=== PATIENT | female | born 1960 | race Caucasian/White ===

== ENCOUNTER 2019-04-09 12:50 | Inpatient (IN) ==
--- OUTSIDE RECORDS SUMMARY | 2019-04-09 12:55 | External Medical Summary | Continuity of Care Document ---
:1960 Author Name Robert Chino Address Unavailable Unavailable , Care Team Providers Name Role Phone Garfield OLSON Unavailable [email or web address] Saturnino Chino Unavailable [email or web address] Aric Goyal PA-C Unavailable [email or web address] PCP, UNKNOWN Unavailable Unavailable Unavailable Unavailable Unavailable Problems Abdominal pain, left lower quadrant (789.04) (R10.32) Abdominal bloating (787.3) (R14.0) Change in mole (216.9) (D22.9) Insomnia (780.52) (G47.00) Hyperlipidemia (272.4) (E78.5) Difficulty reading due to visual problem (368.9) (H53.9) Eustachian tube dysfunction (381.81) (H69.80) 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 Lulú Matamoros Start: 21-Oct-2014 Quantity: 15 Refills: 0 Simvastatin 10 MG Oral Tablet; TAKE 1 TABLET DAILY. Lulú Matamoros Start: 20-May-2016 Quantity: 90 Refills: 1 One Daily For Women Oral Tablet; TAKE 1 TABLET DAILY. Start: 25-Jun-2012 Refills: 0 Vitamin D3 50 MCG (2000 UT) Oral Capsule; TAKE 1 CAPSULE Christi ly Start: 25-Jun-2012 Refills: 0 Calcium 500 MG TABS; Take 1 tablet twice daily Start: 25-Jun-2012 Refills: 0 Fluticasone Propionate 50 MCG/ACT Nasal Suspension; USE 2 SPRAYS IN EACH NOSTRIL TWICE DAILY. Merrill, PA-C Ana Start: 11-Nov-2011 Quantity: 1 16 GM Bottle Refills: 1 ProAir HFA 108 (90 Base) MCG/ACT Inhalat ion Aerosol Solution; INHALE 1 TO 2 PUFFS EVERY 4 TO 6 HOURS NEEDED. WHITNEY Goyal Start: 08-Mar-2011 Quantity: 1 Refills: 5 Procedures History of Oral Surgery Tooth Extraction Status: Completed Immunizations Tdap (Adacel) On: 14-Nov-2011 10:26 Lot #: [id number], SANOFI PASTEUR Family History Mother Family history of Breast Cancer (V16.3) Status: Active aunt Family history of Breast Cancer (V16.3) Status: Active Grandmother Family history of Colon Cancer (V16.0) Status: Active Grandmother Family history of Colon Cancer (V16.0) Status: Active Brother Family history of Hypertension (V17.49) Status: Active Family history of Pure Hypercholesterolemia Status: Active Father Family history of Pure Hypercholesterolemia Status: Active Family history of chronic obstructive pulmonary disease (V17 .6) Status: Active (Z82.5) Social History - Smoking Status Former smoker Plan of Treatment Planned Observations Planned Goals not documented Results No Known Results Results not documented
[2019-04-09] MEDS ORDERED: SODIUM CHLORIDE 0.9% 1000ML 1,000 ML IV SCH (14:15)
[2019-04-09 14:17] LABS: Hematocrit (blood only) 30.4 % (37-47); Hemoglobin 10.5 g/dL (12.0-16.0); Mean Corpuscular Hemoglobin 32.5 pg (25-34); Mean Corpuscular Hgb Conc 34.5 g/dL (32-36); Mean Corpuscular Volume 94.1 fL (80-100); Mean Platelet Volume 9.6 fL (7.4-10.4); Platelet Count 221 K/uL (130-400); RDW Coefficient of Variation 17.7 % (11.5-14.5); RDW Standard Deviation 61.4 fL (36.4-46.3); Red Blood Count 3.23 M/uL (4.2-5.4); White Blood Count 23.98 K/uL (4.8-10.8)
[2019-04-09 14:25] LABS: Albumin Level 2.9 gm/dl (3.4-5.0); Aspartate Aminotransferase 18 U/L (15-37); BUN Creatinine Ratio 27.2 (10-20); Blood Urea Nitrogen 19 mg/dl (7-18); Calcium 8.7 mg/dl (8.5-10.1); Carbon Dioxide 24 mmol/L (21-32); Chloride 101 mmol/L (98-107); Creatinine Clr Calc Pharmacy 78.3 ml/min; Est GFR (African American) 109.1; Est GFR (Non-African American) 94.2; Glucose 128 mg/dl (70-99); Lipase 102 U/L (73-393); Potassium 3.3 mmol/L (3.5-5.1); Sodium 133 mmol/L (136-145)
[2019-04-09 14:31] LABS: Alanine Aminotransferase 42 U/L (12-78); Albumin Globulin Ratio 0.7 (0.9-2); Alkaline Phosphatase 157 U/L (45-117); Bilirubin,Total 1.4 mg/dl (0.2-1); Globulin 4.2 gm/dl (2.5-4.0); Total Protein 7.1 gm/dl (6.4-8.2); Troponin I < 0.015 ng/ml (0-0.045)
[2019-04-09 14:40] LABS: ALC (manual) 0.22 K/uL (1.2-3.4); ANC (manual) 23.76 K/uL (1.4-6.5); Lymphocytes # (manual) 0.22 K/uL (1.2-3.4); Lymphocytes % (manual) 0.9 %; Neutrophils # (manual) 23.76 K/uL (1.4-6.5); Neutrophils % (manual) 99.1 %
--- NOTE | 2019-04-09 14:54 | XRay Report ---
XR chest 1V portable HISTORY: 58 years-old Female sepsis acute sepsis COMPARISON: CT abdomen and pelvis 10/11/2018 TECHNIQUE: Portable AP view of the chest FINDINGS: Cardiomediastinal and hilar silhouettes are within normal limits. Right IJ Ndpmpp-o-Ituj catheter dis guan[place]ito tip terminates in the expected location of the mid SVC. Linear bibasilar opacities suggest atelec tasis. Mild right hemidiaphragmatic elevation with small right pleural effusion, new from prior. Dege nerative changes of the shoulders and spine. IMPRESSION: 1. Mild right hemidiaphragm elevation with linear bibasilar opacities suggestive of atelectasis. 2. Small right pleural effusion, new from comparison. The above report was generated using voice recognition software. It may contain grammatical, syntax o r spelling errors. Electronically signed by: Humberto Odom M.D. 04/09/2019 2:53 PM
[2019-04-09] MEDS ORDERED: IOVERSOL 100ml IV PRN (17:14)
--- NOTE | 2019-04-09 17:28 | CT Scan Report ---
CT abd pelvis oral and IV con CLINICAL HISTORY: Abdominal pain. Right lower quadrant drain. Hospital intra-abdominal abscess. 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 CT DOSE: 328.85 mGy.cm FINDINGS: Lower chest: There is elevation of the right hemidiaphragm. There is a small right pleural effusion w ith right basilar atelectasis. There are pleurodiaphragmatic calcifications. Liver: There is a 33 mm central hypodense lesion approaching water attenuation likely representing a cyst. There is a second probable cyst within the right lobe inferiorly Gallbladder: Surgically absent Spleen: Normal in size and attenuation. Pancreas: Unremarkable. Adrenal glands: Unremarkable. Kidneys: There is symmetric renal cortical enhancement. The kidneys are normal in size without hydron ephrosis. Bowel: Postsurgical changes are evident. There is no evidence of a significant bowel obstruction. The re is no evidence of acute diverticulitis. There is a thick-walled distal ileal loop at the level of the right lower quadrant abscess, likely resulting secondary inflammation. Peritoneum: There is loculated right subhepatic fluid. There is no free intraperitoneal air. There is a right lower quadrant surgical drain. The drain is within a complex 3 cm right lower quadrant fluid collection with marked surrounding infiltration and thickening of the surrounding soft tissues. The patient appears be status post omentectomy. Vasculature: The abdominal aorta is normal in course and caliber. Adenopathy: None. Pelvic viscera: The patient appears be status post a hysterectomy. There is a stool-filled rectum wit h mild rectal wall thickening. Skeletal structures: No destructive osseous lesions are seen. IMPRESSION: 1. Extensive interval surgery with evidence of interval hysterectomy and oophorectomy and omentectomy . There is also evidence for interval bowel surgery with several bowel anastomoses. 2. Small right pleural effusion, with right basilar atelectatic change 3. Loculated subhepatic fluid 4. Extensive right lower quadrant inflammatory process. There is a right lower quadrant pigtail willian ter draining a 3 cm fluid collection. There is marked infiltration and thickening of the surrounding soft tissues. There is secondary edema within the distal ileal loop. 5. No current evidence of a high-grade bowel obstruction. Electronically signed by: Jacob Dempsey M.D. 04/09/2019 5:26 PM
[2019-04-09] MEDS ORDERED: SODIUM CHLORIDE 0.9% 1000ML 1,000 ML IV STA (19:46)
[2019-04-09] MEDS ORDERED: CASPOFUNGIN 70 MG in SODIUM CHLORIDE 0.9% 250 ML IV ONE (20:00)
[2019-04-09] MEDS ORDERED: ERTAPENEM SODIUM 1,000 MG in SODIUM CHLORIDE 0.9% 50 ML IV ONE (20:00)
[2019-04-09] MEDS ORDERED: SIMVASTATIN 10 MG TAB PO ONE (22:29)
[2019-04-09] MEDS ORDERED: ONDANSETRON INJ 2 MG/ML 2 ML VIAL IV PRN (22:29)
[2019-04-09] MEDS ORDERED: NITROGLYCERIN SL 0.4 MG/TAB TAB SL PRN (22:29)
[2019-04-09] MEDS ORDERED: FAMOTIDINE 20 MG TAB PO ONE (22:29)
[2019-04-09] MEDS ORDERED: POTASSIUM CHLORIDE 20 MEQ TABCR PO STA (22:29)
[2019-04-09] MEDS: ACETAMINOPHEN 325 MG TAB PO PRN (23:09)
[2019-04-09] MEDS: SODIUM CHLORIDE 0.9% 1000ML 1,000 ML IV SCH (23:13)
[2019-04-09] MEDS ORDERED: ERTAPENEM CONSULT ACTIVE PRN (23:41)
[2019-04-09] MEDS ORDERED: [UNRECOGNIZED DRUG - REMARK] PRN (23:48)
--- NOTE | 2019-04-09 23:51 | Emergency Department Note ---
Entered by Kelly Byrnes acting as a scribe for ED Provider Note CHIEF COMPLAINT: RLQ abscess HISTORY OF PRESENT ILLNESS: The patient is a 58 year old female who presents to the Emergency Room with complaints of an abscess in her right lower quadrant that worsened yesterday. She states that she's had difficulty with abscesses in her abdomen for the past few months. The patient notes that her abscess has been draining more fluid, so she was recommended to present to the ER by her visiting nurse. She complains of RLQ abdominal pain and nausea. The patient complains of diarrhea. Pt denies LOC, headache, fevers, chills, diaphoresis, visual changes, neck pain, chest pain, breathing difficulties, nausea, vomiting, back pain, melena, hematochezia, urinary symptoms, numbness, weakness, lymphadenopathy, rash, or other complaint s. The patient notes that Ibuprofen provides some relief. She notes that she is currently undergoing chemotherapy, stating that her last treatment was 4 days ago. The patient states that she's been taking an antibiotic and micafungin. REVIEW OF SYSTEMS: See HPI for pertinent positives and negatives. A total of ten systems were reviewed and were otherwise negative. PMHx/PSHx: Ovarian cyst, cancer SOCIAL HISTORY: Patient lives at home. PHYSICAL EXAM: GENERAL: Awake, alert, well-appearing, in no distress HENT: Normocephalic, atraumatic. Oropharynx unremarkable. EYES: PERRL. Normal conjunctiva. Sclera non-icteric. NECK: Inspection normal. Non-tender. Supple. No nuchal rigidity. FROM. No masses. RESPIRATORY: Clear to auscultation. No wheezes. No rales. Normal respiratory effort. CARDIAC: Tachycardic rate. Normal rhythm. No murmurs. No rubs. Extremities warm and well perfused. Pulses equal. No JVD. GI: Soft, non-distended. Mild RLQ tenderness. Draining in the RLQ. No rebound or guarding. No masses. RECTAL: Deferred. MUSCULOSKELETAL: Atraumatic. Chest examination reveals no tenderness. The back is symmetrical on inspection without obvious abnormality. There is no CVA tenderness to palpation. No joint edema. LOWER EXTREMITIES: Calves are equal size bilaterally and non-tender. No edema. No discoloration. NEURO: Normal sensorium. No sensory or motor deficits noted. SKIN: No rash or jaundice noted. EMERGENCY DEPARTMENT COURSE: 1414: Past medical records reviewed. The patient was evaluated in room B10, and a complete history and physical examination were performed. 155: I updated the patient, and she was finishing her CT prep. She is scheduled to go to CT at 16:30. 1800: I updated the patient. 1818: I spoke with Dr. Dougherty at [facility] about the patient's case. We reviewed the patient's data and his recommendation was for the patient to be monitored for any signs of sepsis such as hypotension or development of fever. If that would be the case then he recommended meropenem and vancomycin to be initiated. He recommended no change at this time to antibiotic or empiric treatment. He did ask for the drainage around the tube to be cultured and this was performed. 1946: I spoke with Dr. Holley, [facility] hospitalist, about the patients case. He will further evaluate the patient. 1950: I updated the patient on the plan, and she was in agreement. MEDICAL DECISION MAKING: Prior records/ancillary studies reviewed. Triage Nursing notes reviewed and agree them. The patient's history was concerning for abdominal pain and known intra- abdominal abscess. Differential diagnosis: Etiologies such as abdominal abscess, necrotizing fasciitis, pneumonia, influenza,meningitis, urinary tract infection, sepsis, bacteremia, viral syndrome, as well as others were entertained. Physical examination: As above. Mild right lower quadrant tenderness but no peritoneal findings. Initial vital signs revealed tachycardia and borderline hypotension. The patient does note that she typically runs lower on her blood pressure, frequently around 100 systolic per ER treatment provided: Normal saline hydration On reassessment the patient felt better. Vital signs improved. Diagnostics interpreted by me: ECG: No acute ischemia. The labs revealed a market leukocytosis on CBC. The patient did receive Neulasta with her chemotherapy this week. The patient's blood cultures are pending. Her lactate was within normal limits albeit at the upper limits. Imaging studies: Chest imaging negative. CT scan of the abdomen pelvis reveals a 3 cm right lower quadrant abscess that is drained by the pigtail catheter. There is inflammatory change around this. After discussion with ID at [facility] the abscess has decreased in size slightly. There measurement was 3.6 cm. I did discuss the patient's ertapenem and micafungin. Micafungin is not available here on formulary although caspofungin is not pharmacy felt the dosing would be equivalent for coverage. A dose of caspofungin was substituted with ED pharmacist in agreement. Consultation: A consultation was placed with [facility] infectious disease as noted above. Due to the recommendations for monitoring a consultation was placed with [facility] hospitalist. The case was discussed and diagnostics were reviewed. The patient was evaluated in the ER for further treatment. IMPRESSION: Hypotension, Tachycardia, Intra-abdominal abscess, History of ovarian cancer, History of recent chemotherapy PLAN: Evaluation by hospitalist The scribe's documentation has been prepared under my direction and personally reviewed by me in its entirety. I confirm that the note above accurately reflects all work, treatment, procedures, and medical decision making performed by me. Impression & Plan Hypotension, Tachycardia, Intra-abdominal abscess, History of ovarian cancer, History of recent chemotherapy Past Med/Surg History Medical History Left ovarian cyst (Acute) Cancer Social History Preferred Language: Mongolian Communication Ability: Effective Beliefs That Will Affect Care: None marital status: Current Living Situation: Alone current occupational status: employed Other Information That Helps Us Care for You: No Feels Safe at Home: Yes Safety Concerns: Feels Safe At This Time Smoking Status: Former smoker Do You Dip or Chew Tobacco: No ; Second Hand Exposure: No ; Tobacco Cessation Education Requested by Patient: No Hx Alcohol Use: Yes Alcohol type: wine and hard liquor Hx Substance Use: No Results & Data Vital Signs Vital Signs - 24 hr 04/09/19 12:58 04/09/19 15:14 04/09/19 17:34 Temperature 36.6 C Temperature Source Oral Sepsis Recent Fever Within 48 Hours No Sepsis Action Taken by Nursing No Action Required Pulse Rate 133 H Pulse Rate [Apical] 95 H 96 H Respiratory Rate 20 18 18 Blood Pressure 90/63 L Blood Pressure [Right Arm] 117/82 122/64 Blood Pressure Mean 72 Blood Pressure Mean [Right Arm] 93 83 Pulse Oximetry 96 100 Oxygen Delivery Method Room Air 04/09/19 19:21 Temperature Temperature Source Sepsis Recent Fever Within 48 Hours Sepsis Action Taken by Nursing Pulse Rate Pulse Rate [Apical] Respiratory Rate 18 Blood Pressure Blood Pressure [Right Arm] 131/81 Blood Pressure Mean Blood Pressure Mean [Right Arm] 97 Pulse Oximetry 100 Oxygen Delivery Method Room Air Home Medications Current Medication List: was personally reviewed by me Laboratory Data Attestation: I reviewed the patient's lab results. Result diagrams: 04/09/19 13:53 04/09/19 13:53 Lab Results 04/09/19 04/09/19 04/09/19 Range/Units 13:53 13:53 13:53 WBC 23.98 H (4.8-10.8) K/uL RBC 3.23 L (4.2-5.4) M/uL Hgb 10.5 L (12.0-16.0) g/dL Hct 30.4 L (37-47) % MCV 94.1 (80-100) fL MCH 32.5 (25-34) pg MCHC 34.5 (32-36) g/dL RDW Std Deviation 61.4 H (36.4-46.3) fL RDW Coeff of Eddie 17.7 H (11.5-14.5) % Plt Count 221 (130-400) K/uL MPV 9.6 (7.4-10.4) fL Neutrophils % (Manual) 99.1 % Lymphocytes % (Manual) 0.9 % Neutrophils # (Manual) 23.76 H (1.4-6.5) K/uL Total Absolute Neuts 23.76 H (1.4-6.5) K/uL Lymphocytes # (Manual) 0.22 L (1.2-3.4) K/uL Total Abs Lymphocytes 0.22 L (1.2-3.4) K/uL Hyposegmented Neuts 1+ Sodium 133 L (136-145) mmol/L Potassium 3.3 L (3.5-5.1) mmol/L Chloride 101 (98-107) mmol/L Carbon Dioxide 24 (21-32) mmol/L Anion Gap 8.0 (3-11) BUN 19 H (7-18) mg/dl Creatinine 0.70 (0.6-1.2) mg/dl Est Cr Clr Drug Dosing 78.3 ml/min Est GFR ( Amer) 109.1 Est GFR (Non-Af Amer) 94.2 BUN/Creatinine Ratio 27.2 H (10-20) Glucose 128 H (70-99) mg/dl POC Lactic Acid William (0.90-1.70) mmol/L Lactate 2.0 (0.4-2.0) mmol/L Calcium 8.7 (8.5-10.1) mg/dl Total Bilirubin 1.4 H (0.2-1) mg/dl AST 18 (15-37) U/L ALT 42 (12-78) U/L Alkaline Phosphatase 157 H (45-117) U/L Troponin I < 0.015 (0-0.045) ng/ml Total Protein 7.1 (6.4-8.2) gm/dl Albumin 2.9 L (3.4-5.0) gm/dl Globulin 4.2 H (2.5-4.0) gm/dl Albumin/Globulin Ratio 0.7 L (0.9-2) Lipase 102 (73-393) U/L 04/09/19 Range/Units 14:38 WBC (4.8-10.8) K/uL RBC (4.2-5.4) M/uL Hgb (12.0-16.0) g/dL Hct (37-47) % MCV (80-100) fL MCH (25-34) pg MCHC (32-36) g/dL RDW Std Deviation (36.4-46.3) fL RDW Coeff of Eddie (11.5-14.5) % Plt Count (130-400) K/uL MPV (7.4-10.4) fL Neutrophils % (Manual) % Lymphocytes % (Manual) % Neutrophils # (Manual) (1.4-6.5) K/uL Total Absolute Neuts (1.4-6.5) K/uL Lymphocytes # (Manual) (1.2-3.4) K/uL Total Abs Lymphocytes (1.2-3.4) K/uL Hyposegmented Neuts Sodium (136-145) mmol/L Potassium (3.5-5.1) mmol/L Chloride (98-107) mmol/L Carbon Dioxide (21-32) mmol/L Anion Gap (3-11) BUN (7-18) mg/dl Creatinine (0.6-1.2) mg/dl Est Cr Clr Drug Dosing ml/min Est GFR ( Amer) Est GFR (Non-Af Amer) BUN/Creatinine Ratio (10-20) Glucose (70-99) mg/dl POC Lactic Acid William 1.15 (0.90-1.70) mmol/L Lactate (0.4-2.0) mmol/L Calcium (8.5-10.1) mg/dl Total Bilirubin (0.2-1) mg/dl AST (15-37) U/L ALT (12-78) U/L Alkaline Phosphatase (45-117) U/L Troponin I (0-0.045) ng/ml Total Protein (6.4-8.2) gm/dl Albumin (3.4-5.0) gm/dl Globulin (2.5-4.0) gm/dl Albumin/Globulin Ratio (0.9-2) Lipase (73-393) U/L Administered Medications Acetaminophen (Tylenol) 650 mg PO Q4H PRN PRN Reason: Pain or Fever Stop: 05/09/19 22:28 Last Admin: 04/09/19 23:09 Dose: 650 mg Documented by: [id number] Sodium Chloride (Nss 1000ml) 1,000 mls @ 100 mls/hr IV .Q10H BHARAT Stop: 05/09/19 22:28 Last Admin: 04/09/19 23:13 Dose: 100 mls/hr Documented by: [id number] Discontinued Medications Famotidine (Pepcid) 20 mg PO NOW ONE Stop: 04/09/19 22:30 Last Admin: 04/09/19 23:13 Dose: 20 mg Documented by: [id number] Sodium Chloride (Nss 1000ml) 1,000 mls @ 999 mls/hr IV .Q1H1M BHARAT Stop: 04/09/19 15:15 Last Infusion: 04/09/19 17:14 Dose: 0 mls/hr Documented by: [id number] Admin: 04/09/19 14:32 Dose: 999 mls/hr Documented by: [id number] Sodium Chloride (Nss 1000ml) 1,000 mls @ 125 mls/hr IV .Q8H STA Stop: 04/10/19 03:45 Last Admin: 04/09/19 20:52 Dose: 125 mls/hr Documented by: [id number] Ertapenem 1,000 mg/ Sodium (Chloride) 60 mls @ 100 mls/hr IV NOW ONE Stop: 04/09/19 20:35 Last Admin: 04/09/19 20:18 Dose: 100 mls/hr Documented by: [id number] Caspofungin 70 mg/ Sodium (Chloride) 260 mls @ 260 mls/hr IV NOW ONE Stop: 04/09/19 20:59 Last Admin: 04/09/19 20:52 Dose: 260 mls/hr Documented by: [id number] Ioversol (Optiray 320 100ml) 94 ml IV ONCE PRN PRN Reason: Interaction Checking Stop: 04/13/19 17:13 Last Admin: 04/09/19 17:14 Dose: 94 ml Documented by: [id number] Potassium Chloride (Klor-Con M20) 20 meq PO NOW STA Stop: 04/09/19 22:30 Last Admin: 04/09/19 23:11 Dose: 20 meq Documented by: [id number] Simvastatin (Zocor) 10 mg PO NOW ONE Stop: 04/09/19 22:30 Last Admin: 04/09/19 23:10 Dose: 10 mg Documented by: [id number] Imaging Data Radiologist's Impression: Radiology results as stated below per my review and the radiologist's interpretation: XR chest 1V portable HISTORY: 58 years-old Female sepsis acute sepsis COMPARISON: CT abdomen and pelvis 10/11/2018 TECHNIQUE: Portable AP view of the chest FINDINGS: Cardiomediastinal and hilar silhouettes are within normal limits. Right IJ Fekqql-j-Ztwl catheter distal tip terminates in the expected location of the mid SVC. Linear bibasilar opacities suggest atelectasis. Mild right hemidiaphragmatic elevation with small right pleural effusion, new from prior. Degenerative changes of the shoulders and spine. IMPRESSION: 1. Mild right hemidiaphragm elevation with linear bibasilar opacities suggestive of atelectasis. 2. Small right pleural effusion, new from comparison. The above report was generated using voice recognition software. It may contain grammatical, syntax or spelling errors. Electronically signed by: Humberto Odom M.D. 04/09/2019 2:53 PM XR chest 1V portable HISTORY: 58 years-old Female sepsis acute sepsis COMPARISON: CT abdomen and pelvis 10/11/2018 TECHNIQUE: Portable AP view of the chest FINDINGS: Cardiomediastinal and hilar silhouettes are within normal limits. Right IJ Owtmku-i-Dvsj catheter distal tip terminates in the expected location of the mid SVC. Linear bibasilar opacities suggest atelectasis. Mild right hemidiaphragmatic elevation with small right pleural effusion, new from prior. Degenerative changes of the shoulders and spine. IMPRESSION: 1. Mild right hemidiaphragm elevation with linear bibasilar opacities suggestive of atelectasis. 2. Small right pleural effusion, new from comparison. The above report was generated using voice recognition software. It may contain grammatical, syntax or spelling errors. Electronically signed by: Humberto Odom M.D. 04/09/2019 2:53 PM ECG Data Attestation: I personally reviewed and interpreted this ECG as follows: Indication: abdominal pain Rate (beats per minute): 100 Rhythm: normal sinus Findings: + other (normal QRS, nonspecific ST changes); no PAC, no PVC, no ST depression and no ST elevation Blood Pressure Blood Pressure Findings: Elevated blood pressure Blood Pressure Disposition: further management by hospitalist Discharge Plan Visit Data *Final* Discharge Date/Time: 04/09/19 22:06 Chief Complaint: Infection, Wound Stated Complaint: PUS FROM STOMACH DRAINAGE SITE ED Provider: Naresh Montgomery Discharge Problem: Hypotension, Tachycardia, Intra-abdominal abscess, History of ovarian cancer, History of recent chemotherapy Patient Disposition: Admitted As Inpatient Discharge Instructions Interventions: ED Discharge Assessment Last Done: 04/09/19 22:06 Discharge Problem: Hypotension Qualifiers: Hypotension type: unspecified hypotension type Qualified Code(s): I95.9 - Hypotension, unspecified The scribe's documentation has been prepared under my direction and personally reviewed by me in its entirety. I confirm that the note above accurately reflects all work, treatment, procedures, and medical decision making performed by me.
[2019-04-10] MEDS ORDERED: HEPARIN 100 UNIT/ML 5ML FLUSH FLUSH PRN (00:22)
--- NOTE | 2019-04-10 01:10 | History and Physical Report ---
DATE OF ADMISSION: 04/09/2019 CHIEF COMPLAINT: Drainage around her abdominal pigtail catheter. 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 She is on micafungin and Invanz IV antibiotic every day as per patient until she completes her chemotherapy, currently she is getting chemo locally with paclitaxel and carboplatin , chemotherapy starting on 01/07/2019, last dose was 04/05/2019. She also received Neulasta. She lives alone. She walks without any support. Appetite is okay. She lost over 25 pounds since her surgery, she has home health nurse comes once a week. She is having some friends who helped with the food. Today her home nurse came, she found that some drainage around catheter and also drainage in catheter, not looking good, so she advised to come to the ER and she also called her [facility] ID and they also advised to come to the ER. In the ER when she came in, she was tachycardic and hypotensive with IV fluids hemodynamics improved. Her lactate was normal at 2 and white count was 23, but she received Neulasta. She was afebrile. She denies any fever, chills at home. She has some mild soreness at the catheter site, but that is not unusual. ER physician talked to the ID stone engraver at [facility], they recommended to observe in the hospital. If she spiked temperature or develops any infection, to broaden the antibiotics to IV vancomycin and meropenem. Currently hemodynamically stable. Denies any headache. She says her blood pressure usually runs on the lower side and gets dizzy when she stands up. No blurred vision. No earaches. Has some runny nose over the last 2 weeks. No sore throat, no cough, no fever, no chills, no dysphagia, no chest pain, no shortness of breath, no nausea, no vomiting. She has diarrhea from her chemo, but no bloody stools or black stools. No hematuria or burning micturition, no swelling in the legs, no rash. ALLERGIES: No known drug allergies. PAST MEDICAL HISTORY: As mentioned above. PAST SURGICAL HISTORY: Breast lesion, core biopsy, colonoscopy, tunneled catheter at [facility], has total abdominal hysterectomy with bilateral salpingo-oophorectomy, debulking diaphragmatic stripping, omentectomy, transverse colectomy and ileocolic resection in October 2018. On 03/02/2019, she has IR placement of pigtail catheter for abdominal abscess. MEDICATIONS: She is on IV Invanz 1 gram daily and micafungin 100 mg IV daily, multivitamin daily, potassium chloride 20 mEq p.o. b.i.d., famotidine 20 mg b.i.d., Lexapro 10 mg p.o. daily, simvastatin 10 mg p.o. at bedtime. FAMILY HISTORY: Significant for: Father had lung cancer, hypertension. Aunt has breast cancer. Cousin has breast cancer. Mother has breast cancer. Maternal grandfather has colon cancer. Paternal grandmother has colon cancer. Maternal grandmother has ALS. SOCIAL HISTORY: , lives alone. Former smoker, smoked 1 pack a day for 9 years. Alcohol, wine 1 or 2 daily. No drug use. REVIEW OF SYMPTOMS: As per HPI. Rest of review of systems is negative. PHYSICAL EXAMINATION: GENERAL: The patient is thin and frail, not in acute distress. VITAL SIGNS: Temperature 36.6, pulse 96, blood pressure 131/81, respiratory rate 18, oxygen 100% room air. HEENT: No pallor, no icterus. Pupils equal, round, reactive to light. NECK: No JVD, no neck masses, no carotid bruits. CARDIOVASCULAR: S1, S2 heard, regular rate and rhythm, no murmur, no gallop. RESPIRATORY SYSTEM: Normal AP diameter. No accessory muscle use. No wheezing, no crackles. ABDOMEN: Soft, some mild tenderness in the pigtail catheter site. No rebound tenderness, no guarding, no distention. CENTRAL NERVOUS SYSTEM: Alert and awake and oriented, obeys commands. Moves extremities. EXTREMITIES: No edema, no erythema. LABORATORY DATA: WBC 23.9, hemoglobin 10.5, hematocrit 30.4, platelets 221. Sodium 133, potassium 3.3, chloride 101, bicarbonate 24, BUN 19, creatinine 0.7, serum glucose 128, point of care lactic acid 1.1, lactate 2, calcium 8.7, total bilirubin 1.4, AST 8, ALT 42, alkaline phosphatase is 157. Troponin I less than 0.015. Lipase 102. Chest x-ray, mild right hemidiaphragm elevation with linear bibasilar opacity suggestive of atelectasis, small right pleural effusion. CT abdomen and pelvis shows extensive interval surgery with evidence of interval hysterectomy and oophorectomy, and omentectomy. There is also evidence for interval bowel surgery, several bowel anastomosis, small right pleural effusion with right basilar atelectatic change, loculated subhepatic fluid, extensive right lower quadrant inflammatory process. There is right lower quadrant pigtail catheter, draining 3 cm fluid collection. There is marked infiltration and thickening of the surrounding soft tissues. There is secondary edema within the distal ileal loop. No current evidence of high-grade bowel obstruction. EKG: Normal sinus rhythm with rate of 100, nonspecific T-wave abnormality seen. ASSESSMENT AND PLAN: This is a 58-year-old female with past medical history significant for high-grade serous carcinoma of the ovary and fallopian tube, status post debulking surgery with liver metastatic disease and extensive intra-abdominal metastatic disease and also intraabdominal abscess, status post percutaneous drainage done on 03/02/2019 at [facility], currently on IV micafungin, IV Invanz daily. Currently, also on chemo locally, chemo started on 01/07/2019, last chemo 04/05/2019, comes because of question of some drainage around the pigtail catheter. 1. Abdominal abscess, status post pigtail catheter, some drainage around pigtail catheter, was hypotensive and tachycardic on presentation, improved with fluids. ER talked with the ID doctor on-call at [facility], talked to ([place]), Dr. Harden is her usual ID doctor. The on-call doctor advised to observe locally in the hospital and if she spiked temperature, to add vancomycin and change Invanz to meropenem. Currently, the patient is hemodynamically stable. We will continue IV fluids, normal saline 100 mL per hour and monitor in the med/surg tele. Her elevated white count could be from Neulasta given a few days ago. Blood cultures and surface wound testing done in ER, we will follow the results and also we will follow the urine cultures. 2. Metastatic high-grade serous carcinoma of the ovary and fallopian tube, status post debulking surgery at [facility] in October 2018 with extensive liver metastatic disease status post perc drainage for abdominal abscess on 03/02/2019. Has appointment at [facility] in next Friday with her surgeon. Advised also follow with her ID. Locally getting chemo. 3. Hypokalemia, replace, says ran out of home prescription of potassium chloride. 4. Gastroesophageal reflux disease. PPI. 5. Depression. Lexapro. 6. Hyperlipidemia, statin. 7. Deep vein thrombosis prophylaxis, sequential compression devices. DISPOSITION: Admit to med/surg tele. Level 1 full code. Addendum: Morning labs hb dropped from 10.5 to 6.6. No obvious signs of bleeding. Will get stool hemeoccult. Blood consent obtained. Dilutional? Consider repeat ct abd/pelvis. Will transfuse 2 units of prbc and monitor. MTDD
[2019-04-10 06:43] LABS: Hemoglobin 6.5 g/dL (12.0-16.0); Mean Corpuscular Hemoglobin 32.7 pg (25-34); Mean Corpuscular Hgb Conc 34.2 g/dL (32-36); Mean Corpuscular Volume 95.5 fL (80-100); Mean Platelet Volume 9.2 fL (7.4-10.4); Platelet Count 214 K/uL (130-400); RDW Coefficient of Variation 17.8 % (11.5-14.5); RDW Standard Deviation 61.5 fL (36.4-46.3); Red Blood Count 1.99 M/uL (4.2-5.4); White Blood Count 16.44 K/uL (4.8-10.8)
[2019-04-10 06:45] LABS: BUN Creatinine Ratio 28.8 (10-20); Creatinine Clr Calc Pharmacy 119.2 ml/min; Est GFR (African American) 124.4; Est GFR (Non-African American) 107.4; Magnesium 1.4 mg/dl (1.8-2.4); Potassium 3.4 mmol/L (3.5-5.1)
[2019-04-10 06:48] LABS: Basophils # (auto) 0.03 K/uL (0-0.2); Basophils % (auto) 0.2 %; Eosinophils % (auto) 0.6 %; Immature Granulocytes # (auto) 0.46 K/uL (0.00-0.02); Immature Granulocytes % (auto) 2.8 %; Lymphocytes # (auto) 1.66 K/uL (1.2-3.4); Lymphocytes % (auto) 10.1 %; Monocytes # (auto) 0.32 K/uL (0.11-0.59); Monocytes % (auto) 1.9 %; Neutrophils # (auto) 13.87 K/uL (1.4-6.5); Neutrophils % (auto) 84.4 %; Toxic Granulation 1+
[2019-04-10] MEDS ORDERED: POTASSIUM CHLORIDE 20 MEQ TABCR PO STA (07:21)
[2019-04-10 07:44] LABS: Appearance Urine Clear (Clear); Bilirubin Urine Negative (Negative); Blood Urine Negative (Negative); Color Urine Yellow; Glucose Urine UA Negative (Negative); Ketones Urine Negative (Negative); Leukocyte Esterase Urine Negative (Negative); Nitrite Urine Negative (Negative); Protein Urine Negative (Negative); Specific Gravity Urine <= 1.005 (1.000-1.030); Urobilinogen Urine Negative (Negative); pH Urine 6.5 (4.5-7.5)
[2019-04-10 08:15] LABS: Hematocrit (blood only) 19.4 % (37-47); Hemoglobin 6.6 g/dL (12.0-16.0)
[2019-04-10] MEDS ORDERED: SODIUM CHLORIDE 0.9% 250 ML IV PRN (08:35)
[2019-04-10] MEDS: MAGNESIUM SULFATE / D5W 1 GM/100 ML BAG IV SCH ×2 (08:39→09:35)
[2019-04-10] MEDS: SODIUM CHLORIDE 0.9% 1000ML 1,000 ML IV SCH (08:40)
[2019-04-10] MEDS: LACTOBACILLUS ACIDOPHILUS (FLORANEX) TAB PO SCH ×3 (08:41→17:48)
[2019-04-10] MEDS ORDERED: ESCITALOPRAM OXALATE 10 MG TAB PO SCH (09:00)
[2019-04-10] MEDS ORDERED: MULTIVITAMIN TAB PO SCH (09:00)
[2019-04-10] MEDS ORDERED: ERTAPENEM 285 MG/ML 1GM VIAL **IM USE IM SCH (09:00)
[2019-04-10] MEDS ORDERED: MICAFUNGIN 100 MG IV SCH (09:00)
[2019-04-10] MEDS ORDERED: POTASSIUM CHLORIDE 10 MEQ TABCR PO SCH (09:00)
[2019-04-10] MEDS ORDERED: FAMOTIDINE 20 MG TAB PO SCH (09:00)
--- NOTE | 2019-04-10 09:18 | Hospitalist Progress Note ---
Date of Service April 10, 2019 Assessment & Plan (1) Intra-abdominal abscess: (2) Anemia: (3) Hypotension: (4) Tachycardia: (5) History of ovarian cancer: (6) History of recent chemotherapy: D/W Dr Obregon, give 1 unit, Check LDH, Iron Studies, Haptoglobin, and Retic Count, Heme Check stool. Continue Abx, Change to Meropenem and Vanco if declines, CT A&P today ROS-No Headache, No Visual Changes, No Nausea, No Vomiting, No Fever, No Chills, No Neck Pain or Stiffness, No Chest Pain, No Palpitations, No SOB, No PICKERING, No Cough, No Sputum, No Wheezing, No Abdominal Pain, No Diarrhea, No Hematemesis, No Hemoptysis, No Unexpected Weight Loss, No Flank pain, No Melena, No Hematochezia, No Frequency, No Urgency, No Burning, No Hematuria, No Rashes, No Diaphoresis. Appetite is Normal Physical Exam Gen-AAO x 3, NAD, Afebrile, Pale Head-NCAT, EOMI, PERRLA, Anicteric Sclera, No Posterior Pharyngeal Erythema Neck-Supple, No JVD, No Thyromegaly, No Masses, No LAD, No Bruits Lungs-Clear to Auscultation Bilaterally, No Rales, No Rhonchi, No Wheezing, No Crepitus Chest-No S4, +S1, +S2, No S3, No Murmurs, No Rubs, No Gallops, No Ectopy Abdomen-Soft, Bowel Sounds Present, Non Tender, Non Distended, No Hepatomegaly, No Splenomegaly, No Palpable Masses, No Rebound, No Rigidity, No Guarding Musculoskeletal-Full Range of Motion Bilaterally, No CVAT Extremities-No Cyanosis, No Clubbing, No Edema Nuero-Cranial Nerves II-XII grossly intact, Motor WNL, DTRs WNL, Strength WNL, Non Focal Psych-Normal Mood Labs checked Results & Data Vital Signs (Past 12 Hours) Vital Signs Temp Pulse Pulse Resp BP Pulse Ox 04/10/19 06:58 37 C 86 18 100/65 94 04/10/19 03:57 36.7 C 84 16 104/70 95 04/10/19 00:15 85 04/09/19 22:35 37.6 C H 93 H 100/62 100 04/09/19 22:29 37.5 C 93 H 100/62 100 (1) Hypotension Hypotension type: unspecified hypotension type Qualified Code(s): I95.9 - Hypotension, unspecified
[2019-04-10 09:42] LABS: Reticulocyte % 0.7 % (0.5-2.0); Reticulocytes # 0.02 10^6/uL (0.02-0.10)
[2019-04-10] MEDS ORDERED: IOVERSOL 100ml IV PRN (09:48)
[2019-04-10] MEDS ORDERED: FUROSEMIDE 20 MG in SYRINGE 0 ML IV SCH (10:00)
[2019-04-10 10:02] LABS: Ferritin 734.2 ng/ml (8-388)
--- NOTE | 2019-04-10 10:12 | CT Scan Report ---
CT abd pelvis IV con only CT DOSE: 339.35 mGy.cm HISTORY: Abd Abscess, Drop in Hb TECHNIQUE: Multiaxial CT images of the abdomen and pelvis were performed following the use of intrave nous contrast. A dose lowering technique was utilized adhering to the principles of ALARA. COMPARISON STUDY: 04/09/2019 FINDINGS: Small right pleural effusion considered unchanged. Hepatic cysts unchanged. Spleen and panc reas are unremarkable. Kidneys negative for hydronephrosis. Stable postoperative changes of the mid and lower abdominal region as previously described. Moderate increase in small bowel distention. Unchanged drainage catheter in the right lower quadrant within a small collection. This is similar. Bladder is midline. No significant free fluid within the pelvic cul-de-sac. IMPRESSION: 1. Small right pleural effusion and right basilar atelectasis unchanged. 2. Interval development of partial distal small bowel obstructive change of uncertain etiology. 3. Drainage catheter right lower quadrant within a small unchanged 3 cm fluid collection. The above report was generated using voice recognition software. It may contain grammatical, syntax or spelling errors. Electronically signed by: Andrea Portillo M.D. 04/10/2019 10:11 AM
[2019-04-10] MEDS: ACETAMINOPHEN 325 MG TAB PO PRN (10:17)
[2019-04-10] MEDS ORDERED: MAGNESIUM OXIDE 400 MG TAB PO SCH (14:00)
[2019-04-10] MEDS ORDERED: CASPOFUNGIN 50 MG in SODIUM CHLORIDE 0.9% 250 ML IV SCH ×2 (17:00→21:00)
[2019-04-10] MEDS ORDERED: POTASSIUM CHLORIDE 20 MEQ TABCR PO SCH (17:00)
--- NOTE | 2019-04-10 17:25 | Discharge Summary ---
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 She is on micafungin and Invanz IV antibiotic every day as per patient until she completes her chemotherapy, currently she is getting chemo locally with paclitaxel and carboplatin , chemotherapy starting on 01/07/2019, last dose was 04/05/2019. She also received Neulasta. She lives alone. She walks without any support. Appetite is okay. She lost over 25 pounds since her surgery, she has home health nurse comes once a week. She is having some friends who helped with the food. Today her home nurse came, she found that some drainage around catheter and also drainage in catheter, not looking good, so she advised to come to the ER and she also called her [facility] ID and they also advised to come to the ER. In the ER when she came in, she was tachycardic and hypotensive with IV fluids hemodynamics improved. Her lactate was normal at 2 and white count was 23, but she received Neulasta. She was afebrile. She denies any fever, chills at home. She has some mild soreness at the catheter site, but that is not unusual. ER physician talked to the ID clinical operations specialist at [facility], they recommended to observe in the hospital. If she spiked temperature or develops any infection, to broaden the antibiotics to IV vancomycin and meropenem. Currently hemodynamically stable. Denies any headache. She says her blood pressure usually runs on the lower side and gets dizzy when she stands up. No blurred vision. No earaches. Has some runny nose over the last 2 weeks. No sore throat, no cough, no fever, no chills, no dysphagia, no chest pain, no shortness of breath, no nausea, no vomiting. She has diarrhea from her chemo, but no bloody stools or black stools. No hematuria or burning micturition, no swelling in the legs, no rash. Admission Exam Per Admitting Provider GENERAL: The patient is thin and frail, not in acute distress. VITAL SIGNS: Temperature 36.6, pulse 96, blood pressure 131/81, respiratory rate 18, oxygen 100% room air. HEENT: No pallor, no icterus. Pupils equal, round, reactive to light. NECK: No JVD, no neck masses, no carotid bruits. CARDIOVASCULAR: S1, S2 heard, regular rate and rhythm, no murmur, no gallop. RESPIRATORY SYSTEM: Normal AP diameter. No accessory muscle use. No wheezing, no crackles. ABDOMEN: Soft, some mild tenderness in the pigtail catheter site. No rebound tenderness, no guarding, no distention. CENTRAL NERVOUS SYSTEM: Alert and awake and oriented, obeys commands. Moves extremities. EXTREMITIES: No edema, no erythema. Principal Diagnosis (1) Suspected Intra-abdominal abscess: Ruled Out (2) Anemia: (3) Hypotension: (4) Tachycardia: (5) History of ovarian cancer: (6) History of recent chemotherapy: Discharge Exam Physical Exam Gen-AAO x 3, NAD, Afebrile, Pale, Pleasant Head-NCAT, EOMI, PERRLA, Anicteric Sclera, No Posterior Pharyngeal Erythema Neck-Supple, No JVD, No Thyromegaly, No Masses, No LAD, No Bruits Lungs-Clear to Auscultation Bilaterally, No Rales, No Rhonchi, No Wheezing, No Crepitus Chest-No S4, +S1, +S2, No S3, No Murmurs, No Rubs, No Gallops, No Ectopy Abdomen-Soft, Bowel Sounds Present, Non Tender, Non Distended, No Hepatomegaly, No Splenomegaly, No Palpable Masses, No Rebound, No Rigidity, No Guarding, +Pigtail Cathter wo drainage, Pus, Erythema, or tenderness Musculoskeletal-Full Range of Motion Bilaterally, No CVAT Extremities-No Cyanosis, No Clubbing, No Edema Nuero-Cranial Nerves II-XII grossly intact, Motor WNL, DTRs WNL, Strength WNL, Non Focal Psych-Normal Mood Discharge Data Allergies Allergy/AdvReac Type Severity Reaction Status Date / Time No Known Allergies Allergy Unverified 04/09/19 13:35 Consultations 04/09/19 19:47 ED Decision to Admit Stat 04/09/19 22:29 Consult Case Management - Discharge Planning Routine 04/10/19 10:38 Burn CD for patient Stat Ordered Studies 04/09/19 14:15 CT abd pelvis oral and IV con Stat 04/10/19 09:20 CT abd pelvis IV con only Stat Current Diagnoses Anemia, unspecified (04/09/19) Hypotension, unspecified (04/09/19) Peritoneal abscess (04/09/19) Tachycardia, unspecified (04/09/19) Personal history of malignant neoplasm of ovary (04/09/19) Allergies No Known Allergies Allergy (Unverified 04/09/19 13:35) Height/Weight/Isolation Height 5 ft 6 in Weight 59.6 kg Chemistry 04/09/19 04/10/19 13:53 05:07 Sodium 133 L 139 Potassium 3.3 L 3.4 L Chloride 101 107 Carbon Dioxide 24 27 Anion Gap 8.0 5.0 BUN 19 H 14 Creatinine 0.70 0.47 L Glucose 128 H 80 Urinalysis 04/10/19 05:30 Urine Color Yellow Urine Appearance Clear Urine pH 6.5 Ur Specific [place] <= 1.005 Urine Protein Negative Urine Glucose (UA) Negative Urine Ketones Negative Urine Blood Negative Urine Nitrite Negative Urine Bilirubin Negative Microbiology 04/09/19 13:53 Blood Aerobic Blood Culture - Preliminary No growth in Aerobic bottle after 24 hours. 04/09/19 13:53 Blood Anaerobic Blood Culture - Preliminary No growth in Anaerobic bottle after 24 hours. 04/09/19 14:28 Blood Aerobic Blood Culture - Preliminary No growth in Aerobic bottle after 24 hours. 04/09/19 14:28 Blood Anaerobic Blood Culture - Preliminary No growth in Anaerobic bottle after 24 hours. 04/09/19 14:28 Abdomen Gram Stain - Final 04/09/19 14:28 Abdomen Wound Culture - Preliminary Coag negative Staphylococcus Hospital Course (1) Intra-abdominal abscess: (2) Anemia: (3) Hypotension: (4) Tachycardia: (5) History of ovarian cancer: (6) History of recent chemotherapy: D/W Dr Obregon, we gave 1 unit of PRBCs, Antibiotics and antifungal infused, LDH w as normal, Iron normal, Ferritin High, TIBC normal, Haptoglobin pending, Retic Count low normal, CT A&P today showed no gross changes. DC home tonight and f/u c Dr Obregon Friday, She has Abx and antifungal supplies at home Physical Exam Gen-AAO x 3, NAD, Afebrile, Pale Head-NCAT, EOMI, PERRLA, Anicteric Sclera, No Posterior Pharyngeal Erythema Neck-Supple, No JVD, No Thyromegaly, No Masses, No LAD, No Bruits Lungs-Clear to Auscultation Bilaterally, No Rales, No Rhonchi, No Wheezing, No Crepitus Chest-No S4, +S1, +S2, No S3, No Murmurs, No Rubs, No Gallops, No Ectopy Abdomen-Soft, Bowel Sounds Present, Non Tender, Non Distended, No Hepatomegaly, No Splenomegaly, No Palpable Masses, No Rebound, No Rigidity, No Guarding Musculoskeletal-Full Range of Motion Bilaterally, No CVAT Extremities-No Cyanosis, No Clubbing, No Edema Nuero-Cranial Nerves II-XII grossly intact, Motor WNL, DTRs WNL, Strength WNL, Non Focal Psych-Normal Mood Labs checked Total Time Total Time Spent Total Time Spent (In Minutes): 60 mins Total Time Includes: Examination of the Patient, Discharge Planning, Medication Reconciliation and Communication With Other Providers Discharge Plan Discharge Items Patient Disposition: Home - Self-Care Reason For Visit: ABDOMINAL INFECTION Discharge Diagnosis: (1) Suspected Intra-abdominal abscess: Ruled Out (2) Anemia: (3) Hypotension: (4) Tachycardia: (5) History of ovarian cancer: (6) History of recent chemotherapy: Condition on Discharge: Good Activity: Resume your previous activity Lifting: Gradually increase as tolerated Bathing: No limitations Sexual Activity: When tolerated Exercise/Sports: None Driving/Machine Use: No limitations Weightbearing: Full weightbearing Non-emergency contact: Primary Care Provider and Oncologist Call non-emergency contact if: you have any medication questions and your symptoms worsen Follow-up/Referrals: Kody Wall MD [Primary Care Provider] - Maynor Obregon MD [Surgeon] - 04/12/19 9:00 am (For follow up blood work, Dr Obregon requests you see him early Friday in the office) Diet: Regular Addtl Attending Provider Instructions: Check Labs per Dr Obregon Friday in Onc Office Pending Studies at Discharge: No Stand-Alone Forms: My [facility] i'mma Medications and DC Order Prescriptions: Continued multivitamin Tablet 1 tab PO DAILY RF: 0 simvastatin 10 mg tablet 10 mg PO HS RF: 0 potassium chloride 10 mEq capsule, extended release 20 meq PO BID RF: 0 famotidine 20 mg tablet 20 mg PO BID RF: 0 ertapenem [Invanz] 1 gram Recon Soln 1 g IV DAILY RF: 0 escitalopram oxalate 10 mg tablet 10 mg PO DAILY RF: 0 Mycamine 100 mg Recon Soln 100 mg IV DAILY RF: 0 Discharge Orders: Discharge Order (Routine); Ordered 04/10/19 Ordered By: Leonardo Lorenzana Admission Data Admit Date/Time: 04/09/19 21:28 Attending Provider: Leonardo Lorenzana Admit Provider: Sridhar Holley Primary Care Provider: Kody Wall Other Providers: Sridhar Holley ; [place]
[2019-04-10] MEDS ORDERED: ERTAPENEM SODIUM 1,000 MG in SODIUM CHLORIDE 0.9% 50 ML IV SCH ×2 (17:30→20:00)
== END 2019-04-10 19:50 | disposition home health service (06) | DRG 315 ==
LOC: ED 12:50 → 2W 21:28

== ENCOUNTER 2019-05-28 02:50 | Inpatient (IN) ==
[2019-05-28] MEDS ORDERED: ONDANSETRON INJ 2 MG/ML 2 ML VIAL IV STA (03:03)
[2019-05-28] MEDS ORDERED: SODIUM CHLORIDE 0.9% 500 ML IV SCH (03:15)
[2019-05-28 03:55] LABS: Basophils # (auto) 0.03 K/uL (0-0.2); Basophils % (auto) 0.2 %; Immature Granulocytes # (auto) 0.04 K/uL (0.00-0.02); Immature Granulocytes % (auto) 0.3 %; Lymphocytes # (auto) 1.09 K/uL (1.2-3.4); Lymphocytes % (auto) 8.5 %; Mean Corpuscular Hemoglobin 33.1 pg (25-34); Mean Corpuscular Hgb Conc 34.5 g/dL (32-36); Mean Platelet Volume 8.3 fL (7.4-10.4); Monocytes # (auto) 0.54 K/uL (0.11-0.59); Monocytes % (auto) 4.2 %; Neutrophils # (auto) 11.14 K/uL (1.4-6.5); Neutrophils % (auto) 86.8 %; Platelet Count 272 K/uL (130-400); RDW Coefficient of Variation 15.3 % (11.5-14.5); RDW Standard Deviation 53.3 fL (36.4-46.3); Red Blood Count 3.02 M/uL (4.2-5.4); White Blood Count 12.84 K/uL (4.8-10.8)
[2019-05-28 04:16] LABS: Albumin Level 3.1 gm/dl (3.4-5.0); BUN Creatinine Ratio 35.7 (10-20); Calcium 9.3 mg/dl (8.5-10.1); Creatinine Clr Calc Pharmacy 91.8 ml/min; Est GFR (African American) 114.2; Est GFR (Non-African American) 98.5; Potassium 3.6 mmol/L (3.5-5.1)
[2019-05-28 04:19] LABS: Albumin Globulin Ratio 0.7 (0.9-2); Bilirubin,Total 0.9 mg/dl (0.2-1); Globulin 4.2 gm/dl (2.5-4.0); Total Protein 7.3 gm/dl (6.4-8.2)
[2019-05-28] MEDS ORDERED: IOVERSOL 100ml IV PRN (04:42)
--- NOTE | 2019-05-28 06:27 | Surgery Consultation ---
Date of Consultation May 28, 2019 Assessment & Plan (1) Partial small bowel obstruction: Patient does likely have some element of partial obstruction although minimally dilated small bowel and no significant worsening of inflammation in the right lower quadrant. I discussed served of treatment with IV hydration and bowel rest. I also told her if she continues to vomit she would need an NG tube. She is a very reasonable person and if at all possible, would very much like to go home later today-I think we could try liquids obviously if she fails proceed with medical management if she does not progress and appears to require surgery- she would be transferred to [facility]. I told her she may end up going home having more trouble and have to be readmitted-she does understand all of this would very much like to go home later today. We will continue to follow her Also has a note there is a very good medical summary on 04/09/2019 with physicians names from [facility] who have helped care for her History of Present Illness History of Present Illness Patient presents to the emergency room with nausea and vomiting although she says the vomiting is from being self-induced Likely from mild bloating He had similar findings to 4 weeks ago however no significant vomiting at that time History of metastatic ovarian cancer, [id number] debulking procedure in October 2018 at [facility] She has been followed at [facility] with recent right lower quadrant infection abscess with percutaneous drain placement He has completed her IV antibiotics, she apparently has a small fistula is to be repaired in June Her CAT scan shows mildly dilated small bowel which is an ileus versus partial small bowel obstruction-she also has inflammation in the right lower quadrant with a drain in place Patient has evidence of metastatic disease to the liver with multiple liver metastases Allergies Allergy/AdvReac Type Severity Reaction Status Date / Time No Known Allergies Allergy Unverified 05/28/19 03:27 Home Medications Home Medications Medication Instructions Recorded Confirmed Type multivitamin 1 tab PO DAILY 10/11/18 05/28/19 History simvastatin 10 mg PO HS 10/11/18 05/28/19 History escitalopram oxalate 10 mg PO DAILY 04/09/19 05/28/19 History famotidine 20 mg PO BID 04/09/19 05/28/19 History calcium carbonate-vitamin D3 1 cap PO DAILY 05/28/19 05/28/19 History [Calcium 600 + D(3)] Patient History Medical History (Updated 05/28/19 @ 06:01 by Yon Lawson) Cancer History of ovarian cancer (Acute) Hypotension (Acute) Left ovarian cyst (Acute) Tachycardia (Acute) Social History Preferred Language: Polish Communication Ability: Effective Beliefs That Will Affect Care: None marital status: Current Living Situation: Alone current occupational status: employed Feels Safe at Home: Yes Smoking Status: Former smoker Second Hand Exposure: No ; Hx Alcohol Use: Yes Alcohol type: wine and hard liquor Hx Substance Use: No Review of Systems Review of Systems: All systems reviewed & are unremarkable except as noted in HPI & below Physical Exam Physical Exam: Patient is awake and alert no distress her abdomen is flat and soft she does have some bowel sounds Is a percutaneous drain in place in the right lower quadrant with no overt infection in the soft tissue Constitutional: no acute distress Respiratory: normal respiratory effort; no respiratory distress Cardiovascular: Rate/Rhythm: regular rate and regular rhythm Skin: no rashes, warm and dry Neurologic: awake Psychiatric: Orientation: alert Results & Data Vital Signs (Past 12 Hours) Vital Signs Temp Pulse Pulse Resp BP BP Pulse Ox 05/28/19 06:06 70 18 111/76 96 05/28/19 03:52 82 18 123/73 94 05/28/19 02:56 36.5 C 82 18 121/58 L 97 I did review her CAT scan PG Care Time/CCT Total # of Minutes Spent Total Time Spent with Patient: Total time spent is greater than 50% in coordination of care (as documented) at patient's floor/unit and/or counseling patient:
--- NOTE | 2019-05-28 07:00 | History & Physical Report ---
Date of Service May 28, 2019 Assessment & Plan (1) Abdominal pain: Partial SBO versus ileus on initial CT read hx metastatic ovarian cancer status post surgery (10/2018) sp chemotherapy, currently in remission as per recent outpatient specialist note intra-abdominal abscess status post percutaneous drainage (02/2019) status post antibiotic Rx history enterocutaneous fistula status post drain placement chronic anemia, hemoglobin better than baseline likely secondary to hemoconcentration mood disorder at baseline Hyperglycemia rule out DM GMF Surgery consult RE partial SBO on CT initial read (ER provider already in touch with Dr. Tucker who recommends clear liquid diet for now.) May need NGT decompression if with emesis. Bowel regimen check hemoglobin A1c DVT Prophylaxis. Lovenox subcu Full code Patient requesting to be discharged today if possible pending surgical follow-up evaluation. History of Present Illness Chief Complaint: Abdominal pain Primary Care Provider: Kody Wall MD History obtained from patient and records. Medical history significant for metastatic ovarian cancer status post surgery (10/2018) sp chemotherapy, intra-abdominal abscess status post percutaneous drainage (02/2019) status post antibiotic Rx, history enterocutaneous fistula status post drain placement, chronic anemia baseline hemoglobin of 9, mood disorder, past tobacco abuse. Recent confinement March 2019 for abdominal pain. Intra-abdominal abscess ruled out. Recent outpatient follow-up with [facility] specialists 3 weeks ago. Patient told that she was in remission given scan results from last month (no definitive disease as per outpatient records.) Minimal fistula drainage at time of encounter. ID recommended completion of IV antibiotics in 1 week. Fistulogram to be done around June 2019 to determine future management for enterocutaneous fistula. Yesterday, patient noted achy mid abdominal pain with nausea and bloating symptoms. Some constipation as per patient. Patient tried to induce vomiting hoping to relieve symptoms. Some chills, no fever, no chest pain, no S OB. Patient brought to the ER by EMS. Medical History as above Surgical History : Breast lesion excision, vascular procedure, ex lap, omentectomy, partial colon resection, peritoneal ectomy, radical hysterectomy with BSO, appendectomy, ileocecectomy with [id number] anastomosis, resection of cul-de-sac pelvic tumor/ debulking surgery, cholecystectomy. 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 Allergies Allergy/AdvReac Type Severity Reaction Status Date / Time No Known Allergies Allergy Unverified 05/28/19 03:27 Home Medications Home Medications Medication Instructions Recorded Confirmed Type multivitamin 1 tab PO DAILY 10/11/18 05/28/19 History simvastatin 10 mg PO HS 10/11/18 05/28/19 History escitalopram oxalate 10 mg PO DAILY 04/09/19 05/28/19 History famotidine 20 mg PO BID 04/09/19 05/28/19 History Calcium 600 + D(3) 1 cap PO DAILY 05/28/19 05/28/19 History Past Med/Surg History Social History Preferred Language: Congolese Communication Ability: Effective Hospitality Team Member Required: No Beliefs That Will Affect Care: None marital status: Current Living Situation: Alone current occupational status: employed Other Information That Helps Us Care for You: No Feels Safe at Home: Yes Safety Concerns: Feels Safe At This Time Smoking Status: Former smoker Second Hand Exposure: No ; Hx Alcohol Use: Yes Alcohol type: wine and hard liquor Hx Substance Use: No Review of Systems Review of Systems: As per HPI, all 10 systems reviewed, all other ROS negative Physical Exam Physical Exam: GENERAL: Comfortable, slightly anxious, pleasant, no respiratory distress SKIN: Pallor, warm HEENT: Alopecia, pale palpebral conjunctivae, no ptosis, dry buccal mucosa NECK : Supple, no tenderness CHEST : CTA, no tenderness HEART : RRR, no obvious murmurs ABDOMEN: Healed incisional scars, fistula drain noted in the right lower quadrant, some distention, central abdominal tenderness EXTREMITIES : No LE swelling/tenderness, no other conspicuous deformities noted NEUROLOGIC : Coherent, no facial asymmetry, no other gross focality Results & Data Vital Signs (Past 12 Hours) Vital Signs Temp Pulse Pulse Resp BP BP Pulse Ox 05/28/19 06:06 70 18 111/76 96 05/28/19 03:52 82 18 123/73 94 05/28/19 02:56 36.5 C 82 18 121/58 L 97 Laboratory Results Laboratory Results WBC 12.84 K/uL (4.8-10.8) H 05/28/19 03:43 RBC 3.02 M/uL (4.2-5.4) L 05/28/19 03:43 Hgb 10.0 g/dL (12.0-16.0) L 05/28/19 03:43 Hct 29.0 % (37-47) L 05/28/19 03:43 MCV 96.0 fL (80-100) 05/28/19 03:43 MCH 33.1 pg (25-34) 05/28/19 03:43 MCHC 34.5 g/dL (32-36) 05/28/19 03:43 RDW Std Deviation 53.3 fL (36.4-46.3) H 05/28/19 03:43 RDW Coeff of Eddie 15.3 % (11.5-14.5) H 05/28/19 03:43 Plt Count 272 K/uL (130-400) 05/28/19 03:43 MPV 8.3 fL (7.4-10.4) 05/28/19 03:43 Immature Gran % (Auto) 0.3 % 05/28/19 03:43 Neut % (Auto) 86.8 % 05/28/19 03:43 Lymph % (Auto) 8.5 % 05/28/19 03:43 [place] % (Auto) 4.2 % 05/28/19 03:43 Eos % (Auto) 0.0 % 05/28/19 03:43 Baso % (Auto) 0.2 % 05/28/19 03:43 Immature Gran # (Auto) 0.04 K/uL (0.00-0.02) H 05/28/19 03:43 Neut # (Auto) 11.14 K/uL (1.4-6.5) H 05/28/19 03:43 Lymph # (Auto) 1.09 K/uL (1.2-3.4) L 05/28/19 03:43 [place] # (Auto) 0.54 K/uL (0.11-0.59) 05/28/19 03:43 Eos # (Auto) 0.00 K/uL (0-0.5) 05/28/19 03:43 Baso # (Auto) 0.03 K/uL (0-0.2) 05/28/19 03:43 Sodium 138 mmol/L (136-145) 05/28/19 03:43 Potassium 3.6 mmol/L (3.5-5.1) 05/28/19 03:43 Chloride 105 mmol/L (98-107) 05/28/19 03:43 Carbon Dioxide 29 mmol/L (21-32) 05/28/19 03:43 Anion Gap 4.0 (3-11) 05/28/19 03:43 BUN 22 mg/dl (7-18) H 05/28/19 03:43 Creatinine 0.61 mg/dl (0.6-1.2) 05/28/19 03:43 Est Cr Clr Drug Dosing 91.8 ml/min 05/28/19 03:43 Est GFR ( Amer) 114.2 05/28/19 03:43 Est GFR (Non-Af Amer) 98.5 05/28/19 03:43 BUN/Creatinine Ratio 35.7 (10-20) H 05/28/19 03:43 Glucose 115 mg/dl (70-99) H 05/28/19 03:43 Calcium 9.3 mg/dl (8.5-10.1) 05/28/19 03:43 Magnesium 1.4 mg/dl (1.8-2.4) L 05/28/19 03:43 Total Bilirubin 0.9 mg/dl (0.2-1) 05/28/19 03:43 AST 33 U/L (15-37) 05/28/19 03:43 ALT 51 U/L (12-78) 05/28/19 03:43 Alkaline Phosphatase 125 U/L (45-117) H 05/28/19 03:43 Total Protein 7.3 gm/dl (6.4-8.2) 05/28/19 03:43 Albumin 3.1 gm/dl (3.4-5.0) L 05/28/19 03:43 Globulin 4.2 gm/dl (2.5-4.0) H 05/28/19 03:43 Albumin/Globulin Ratio 0.7 (0.9-2) L 05/28/19 03:43 Lipase 87 U/L (73-393) 05/28/19 03:[address] abdomen pelvis initial read: Multiple abdominal surgical clips with postop bowel changes. Stable percutaneous drainage catheter right lower quadrant. Few punctate foci of adjacent free air without significant abscess cavity identified. Dilated and fluid-filled distal small bowel may represent ileus versus partial small bowel obstruction. Right lower quadrant enteritis/enterocolitis slightly worsened from comparison to prior exam. Trace ascites. Status post hysterectomy, cholecystectomy. Trace right pleural effusion.
--- NOTE | 2019-05-28 07:02 | Emergency Department Note ---
Entered by Yon Lawson acting as a scribe for Brittany Black MD History of Present Illness General Chief complaint: Abdominal Pain Stated complaint: abdominal pain Time Seen by Provider: 05/28/19 02:54 Source: patient History of Present Illness Onset (ago): day(s) (this morning) Location: abdomen Pain Consistency: + constant Maximum Pain Intensity: 4 Quality: + other (cramping) Associated symptoms: + other (Positive for nausea, vomtiing, not having a bowel movement/passing gas since this morning, and harder stools.) The patient is a 58 year old female who presents to the emergency department with complaints of constant abdominal pain beginning this morning. The patient states that she developed some upper abdominal cramping this morning. She notes that she was nauseous, and she reports that her symptoms improved after she induced vomiting. The patient states that her pain is better when she sits up. She notes that she has not had a bowel movement or passed gas since this morning. She reports that her bowel movement this morning was harder than usual. The patient states that she recently finished a course of chemotherapy for ovarian cancer. 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 and A total of 10 systems reviewed and were otherwise negative Physical Exam Vital Signs Vital Signs - 24 hr 05/28/19 02:56 05/28/19 03:52 05/28/19 06:06 Temperature 36.5 C Temperature Source Oral Pulse Rate 82 Pulse Rate [Finger] 82 70 Respiratory Rate 18 18 18 Blood Pressure 121/58 L Blood Pressure [Left Arm] 123/73 111/76 Blood Pressure Mean 79 Blood Pressure Mean [Left Arm] 89 87 Pulse Oximetry 97 94 96 Oxygen Delivery Method Room Air Room Air Room Air Sepsis Recent Fever Within 48 Hours No Sepsis New/Unexplained Change in Mental Status No Sepsis Action Taken by Nursing No Action Required Vital signs reviewed. General: Chronically ill-appearing female, in no significant distress. HEENT: No scleral icterus, PERRLA, neck supple. Atraumatic. Cardiovascular: Regular rate and rhythm, no extra sounds. Pulmonary: Clear to auscultation bilaterally, normal work of breathing. Abdomen: Soft, positive bowel sounds. RLQ drainage tube. Mildly tender to epigastric region bilaterally, minimally distended. No rebound, no guarding. Musculoskeletal: Atraumatic, no peripheral edema. No CVA tenderness. Neurologic: Patient awake alert and oriented x 3 Skin: Warm, dry, no rash Course Course 0310: The patient was evaluated in room B7. A complete history and physical exam was performed. 0549: Upon reevaluation, the patient is stable. I discussed the findings and the treatment plan with the patient. She expresses agreement and understanding. I spoke with Dr. Ireland of the [facility]. The patient will be evaluated for further management. 0557: I discussed the patient's case with EDMUNDO Johnston. He is agreeable to the treatment plan. Consultations Consultation #1: I reviewed the patient's case with EDMUNDO Jones. She will evaluate the patient for further management. Time: 05:49 Consultation #2: I discussed the patient's case with EDMUNDO Johnston. He is agreeable to the treatment plan. Time: 05:57 Administered Medications Discontinued Medications Enoxaparin Sodium (Lovenox) 30 mg SQ QAM [facility] Stop: 06/27/19 09:59 Last Admin: 05/28/19 11:16 Dose: 30 mg Documented by: [id number] Escitalopram Oxalate (Lexapro Tab) 10 mg PO DAILY [facility] Stop: 06/27/19 08:59 Last Admin: 05/28/19 10:08 Dose: 10 mg Documented by: [id number] Famotidine (Pepcid) 20 mg PO BID [facility] Stop: 06/27/19 08:59 Last Admin: 05/28/19 10:09 Dose: 20 mg Documented by: [id number] Heparin Sodium (Porcine) (Heparin Sod 100 Unit/Ml Flush) Confirm Administered Dose 5 ml .ROUTE .STK-MED ONE Stop: 05/28/19 15:16 Last Admin: 05/28/19 15:15 Dose: 5 ml Documented by: [id number] Sodium Chloride (Nss) 500 mls @ 125 mls/hr IV .Q4H [facility] Stop: 05/28/19 07:14 Last Infusion: 05/28/19 07:50 Dose: 0 mls/hr Documented by: [id number] Admin: 05/28/19 03:47 Dose: 125 mls/hr Documented by: [id number] Lactated Ringer's (Lr) 1,000 mls @ 80 mls/hr IV .[id number] ONE Stop: 05/28/19 21:20 Last Admin: 05/28/19 10:08 Dose: 80 mls/hr Documented by: [id number] Magnesium Sulfate/Dextrose (Magnesium Sulfate / D5w) 1 gm in 100 mls @ 100 mls/hr IV Q1H [facility] Stop: 05/28/19 11:50 Last Infusion: 05/28/19 13:32 Dose: 0 mls/hr Documented by: [id number] Admin: 05/28/19 12:33 Dose: 100 mls/hr Documented by: [id number] Infusion: 05/28/19 12:16 Dose: 100 mls/hr Documented by: [id number] Admin: 05/28/19 11:16 Dose: 100 mls/hr Documented by: [id number] Infusion: 05/28/19 11:08 Dose: 100 mls/hr Documented by: [id number] Admin: 05/28/19 10:08 Dose: 100 mls/hr Documented by: [id number] Ioversol (Optiray 320 100ml) 100 ml IV ONCE PRN PRN Reason: Interaction Checking Stop: 06/01/19 04:41 Last Admin: 05/28/19 04:43 Dose: 92 ml Documented by: [id number] Multivitamins (Multivitamin Tab) 1 tab PO DAILY [facility] Stop: 06/27/19 08:59 Last Admin: 05/28/19 10:09 Dose: 1 tab Documented by: [id number] Ondansetron HCl (Zofran) 4 mg IV NOW STA Stop: 05/28/19 03:04 Last Admin: 05/28/19 03:50 Dose: 4 mg Documented by: [id number] Senna/Docusate Sodium (Senokot S) 1 tab PO QAM [facility] Stop: 06/27/19 08:59 Last Admin: 05/28/19 11:14 Dose: 1 tab Documented by: [id number] Medical Decision Making Differential Diagnosis Differential diagnosis: Etiologies such as biliary colic, cholecystitis, hepatitis, perihepatitis, pancreatitis, cardiac disease, pancreatitis, gastritis, peptic ulcer disease, appendicitis, ovarian cyst, ovarian torsion, ectopic , pelvic inflammatory disease, cystitis, diverticulitis, mesenteric ischemia, inflammatory bowel disease, ileus, bowel obstruction, aortic pathology, shingles, as well as others were considered. Medical Records Attestation: I reviewed the patient's medical records. Home Medications Current Medication List: was personally reviewed by me Laboratory Data Attestation: I reviewed the patient's lab results. Result diagrams: 05/28/19 03:43 05/28/19 03:43 Lab Results 05/28/19 05/28/19 05/28/19 Range/Units 03:43 03:43 03:43 WBC 12.84 H (4.8-10.8) K/uL RBC 3.02 L (4.2-5.4) M/uL Hgb 10.0 L (12.0-16.0) g/dL Hct 29.0 L (37-47) % MCV 96.0 (80-100) fL MCH 33.1 (25-34) pg MCHC 34.5 (32-36) g/dL RDW Std Deviation 53.3 H (36.4-46.3) fL RDW Coeff of Eddie 15.3 H (11.5-14.5) % Plt Count 272 (130-400) K/uL MPV 8.3 (7.4-10.4) fL Immature Gran % (Auto) 0.3 % Neut % (Auto) 86.8 % Lymph % (Auto) 8.5 % [place] % (Auto) 4.2 % Eos % (Auto) 0.0 % Baso % (Auto) 0.2 % Immature Gran # (Auto) 0.04 H (0.00-0.02) K/uL Neut # (Auto) 11.14 H (1.4-6.5) K/uL Lymph # (Auto) 1.09 L (1.2-3.4) K/uL [place] # (Auto) 0.54 (0.11-0.59) K/uL Eos # (Auto) 0.00 (0-0.5) K/uL Baso # (Auto) 0.03 (0-0.2) K/uL Sodium 138 (136-145) mmol/L Potassium 3.6 (3.5-5.1) mmol/L Chloride 105 (98-107) mmol/L Carbon Dioxide 29 (21-32) mmol/L Anion Gap 4.0 (3-11) BUN 22 H (7-18) mg/dl Creatinine 0.61 (0.6-1.2) mg/dl Est Cr Clr Drug Dosing 91.8 ml/min Est GFR ( Amer) 114.2 Est GFR (Non-Af Amer) 98.5 BUN/Creatinine Ratio 35.7 H (10-20) Glucose 115 H (70-99) mg/dl Estimat Average Glucose mg/dl Hemoglobin A1c (4.5-5.6) % Calcium 9.3 (8.5-10.1) mg/dl Magnesium 1.4 L (1.8-2.4) mg/dl Total Bilirubin 0.9 (0.2-1) mg/dl AST 33 (15-37) U/L ALT 51 (12-78) U/L Alkaline Phosphatase 125 H (45-117) U/L Total Protein 7.3 (6.4-8.2) gm/dl Albumin 3.1 L (3.4-5.0) gm/dl Globulin 4.2 H (2.5-4.0) gm/dl Albumin/Globulin Ratio 0.7 L (0.9-2) Lipase 87 (73-393) U/L 05/28/19 Range/Units 03:43 WBC (4.8-10.8) K/uL RBC (4.2-5.4) M/uL Hgb (12.0-16.0) g/dL Hct (37-47) % MCV (80-100) fL MCH (25-34) pg MCHC (32-36) g/dL RDW Std Deviation (36.4-46.3) fL RDW Coeff of Eddie (11.5-14.5) % Plt Count (130-400) K/uL MPV (7.4-10.4) fL Immature Gran % (Auto) % Neut % (Auto) % Lymph % (Auto) % [place] % (Auto) % Eos % (Auto) % Baso % (Auto) % Immature Gran # (Auto) (0.00-0.02) K/uL Neut # (Auto) (1.4-6.5) K/uL Lymph # (Auto) (1.2-3.4) K/uL [place] # (Auto) (0.11-0.59) K/uL Eos # (Auto) (0-0.5) K/uL Baso # (Auto) (0-0.2) K/uL Sodium (136-145) mmol/L Potassium (3.5-5.1) mmol/L Chloride (98-107) mmol/L Carbon Dioxide (21-32) mmol/L Anion Gap (3-11) BUN (7-18) mg/dl Creatinine (0.6-1.2) mg/dl Est Cr Clr Drug Dosing ml/min Est GFR ( Amer) Est GFR (Non-Af Amer) BUN/Creatinine Ratio (10-20) Glucose (70-99) mg/dl Estimat Average Glucose 103 mg/dl Hemoglobin A1c 5.2 (4.5-5.6) % Calcium (8.5-10.1) mg/dl Magnesium (1.8-2.4) mg/dl Total Bilirubin (0.2-1) mg/dl AST (15-37) U/L ALT (12-78) U/L Alkaline Phosphatase (45-117) U/L Total Protein (6.4-8.2) gm/dl Albumin (3.4-5.0) gm/dl Globulin (2.5-4.0) gm/dl Albumin/Globulin Ratio (0.9-2) Lipase (73-393) U/L Imaging Data Radiologist's Impression: Radiology results as stated below per my review and the radiologist's interpretation: CT ABDOMEN & PELVIS With Contrast: Comparison: CT abdomen and pelvis 04/10/19. Multiple abdominal surgical clips and postoperative changes of the bowel. Stable percutaneous drainage catheter in the right lower quadrant. There are a few punctate foci of adjacent free air without significant abscess cavity identified. Dilated and fluid-filled distal small bowel may represent ileus or partial small bowel obstruction. There are inflammatory changes in the right lower quadrant with regional bowel wall thickening, possibly enteritis/enterocolitis. This appears worsened in comparison to prior exam. Trace ascites. No free air. Hysterectomy. Normal urinary bladder. Hepatic cysts. Cholecystectomy. Spleen, pancreas, adrenal glands, and kidneys are unremarkable. Trace right pleural effusion. No acute osseous findings. Radiologist: Rio Barron MD. Blood Pressure Blood Pressure Findings: Elevated blood pressure Blood Pressure Disposition: elevated BP felt to be situational MDM Narrative This patient was evaluated and appeared to be in no significant distress. IV access was obtained and laboratory work was drawn. Patient was placed on tug captain. She was hydrated with normal saline solution and Zofran for nausea. Patient's pain had significantly lessened since vomiting earlier. CT imaging of the abdomen pelvis was performed and reveals evidence of ileus versus partial SBO. Patient's laboratory work reveals a slightly elevated WBC at 12.84. Patient's magnesium is slightly depleted at 1.4. She has been resting fairly comfortably in the emergency department. Patient was advised of the findings. I did discuss the case with Dr. Tucker of general surgery who agrees to evaluate the patient in consultation. If the patient required any surgical management, likely she would need to return to [facility] where she had her debulking procedures. The case was also discussed with Dr. Walsh of the hospitalist service who will evaluate the patient for admission and further management. Patient is aware of the plan and agrees. Impression & Plan Partial small bowel obstruction, Ovarian cancer, Metastatic cancer to liver Discharge Plan Visit Data *Final* Discharge Date/Time: 05/28/19 08:20 Chief Complaint: Abdominal Pain Stated Complaint: abdominal pain ED Provider: Brittany Black Discharge Problem: Partial small bowel obstruction, Ovarian cancer, Metastatic cancer to liver Patient Disposition: Admitted As Inpatient Discharge Instructions Interventions: ED Discharge Assessment Last Done: 05/28/19 08:20 Discharge Problem: Ovarian cancer Qualifiers: Laterality: unspecified laterality Qualified Code(s): C56.9 - Malignant neoplasm of unspecified ovary The scribe's documentation has been prepared under my direction and personally reviewed by me in its entirety. I confirm that the note above accurately reflects all work, treatment, procedures, and medical decision making performed by me.
--- NOTE | 2019-05-28 07:46 | CT Scan Report ---
ABDOMEN AND PELVIS CT WITH IV CONTRAST CT DOSE: 329.58 mGy.cm HISTORY: Acute generalized abdominal pain with history of reported ovarian cancer. History of prior h ysterectomy. ovarian CA, abscess, drain TECHNIQUE: Multiaxial CT images of the abdomen and pelvis were performed following the IV administrat ion of 92 cc of Optiray 320, A dose lowering technique was utilized adhering to the principles of [place] BRIANNA. COMPARISON STUDY: CT abdomen and pelvis 04/10/2019 and 04/09/2019 FINDINGS: Trace right pleural effusion is unchanged. Moderate hemidiaphragm elevation with subsegmental right b asilar atelectasis/scarring. There is no definite pneumatosis or pneumoperitoneum identified. Imaged inferior cardiac chambers are unremarkable. 3.9 cm cyst of the left hepatic lobe is unchanged. Cholec ystectomy. Mild common bile duct dilation is likely a postsurgical basis. Spleen is unremarkable. The adrenal glands are within normal limits. 5 mm hypodense focus of the pancreatic tail is nonspecific and may reflect a sidebranch IPMN, unchanged. Mild pancreatic ductal dilation measures up to 4 mm tra nsversely. Kidneys, ureters and urinary bladder are within normal limits. Hysterectomy. Aorta and IVC are unremarkable. Patency of the portal vein. Moderate fecal retention. Multiple postoperative changes of the bowel with multiple anastomotic sutur es. Fluid-filled right hemicolon. There are multiple fluid-filled and stool-filled loops of small bow el within the lower abdomen and pelvis which are prominent measuring up to 2.4 cm. There is mild smal l bowel wall thickening adjacent to anastomotic sutures of the abdominal right lower quadrant. Mild a ssociated mucosal hyperemia. No discrete transition point identified. Pigtail drainage catheter of th e right hemipelvis is noted with adjacent free fluid and mesenteric stranding. No loculated abscess i dentified. The fluid has decreased from comparison study 04/10/2019. Soft tissues are unremarkable. U nchanged scattered sclerotic foci of the iliac bones. Severe disc space narrowing with spondylitic sp urring at L5-S1. IMPRESSION: 1. Extensive postoperative changes of the abdomen redemonstrated with unchanged pigtail drainage cath eter of the abdominal right lower quadrant. Decreased fluid collection of the abdominal right lower q uadrant with persistent edema and mesenteric stranding centered about the abdominal right lower quadr ant. 2. Moderate fecal retention with prominent fluid and stool-filled loops of small bowel within the low er abdomen and pelvis suggestive of ileus versus low-grade small bowel obstruction. Additionally, the re is small bowel wall thickening of the abdominal right lower quadrant adjacent to the pigtail drain age catheter which is likely reactive or may reflect an area of focal enteritis. Correlate clinically . 3. Unchanged trace right pleural effusion. 4. Additional findings as above. Electronically signed by: Humberto Odom M.D. 05/28/2019 7:45 AM
[2019-05-28 08:20] LABS: Estimated Average Glucose 103 mg/dl; Hemoglobin A1C 5.2 % (4.5-5.6)
[2019-05-28] MEDS ORDERED: POLYETHYLENE (MIRALAX) 17 GM PACK PO PRN (08:51)
[2019-05-28] MEDS ORDERED: LORazepam 0.25 MG/0.5 ML VIAL IV PRN (08:51)
[2019-05-28] MEDS ORDERED: PROMETHAZINE HCL 12.5 MG in SODIUM CHLORIDE 0.9% 50 ML IV PRN (08:51)
[2019-05-28] MEDS ORDERED: KETOROLAC TROMETHAMINE 15 MG/ML VIAL IV PRN (08:51)
[2019-05-28] MEDS ORDERED: LACTATED RINGER'S 1,000 ML IV ONE (08:51)
[2019-05-28] MEDS ORDERED: TRAMADOL HCL 50 MG TABLET PO PRN (08:51)
[2019-05-28] MEDS ORDERED: ACETAMINOPHEN 325 MG TAB PO PRN (08:51)
[2019-05-28] MEDS ORDERED: FAMOTIDINE 20 MG TAB PO SCH (09:00)
[2019-05-28] MEDS ORDERED: MULTIVITAMIN TAB PO SCH (09:00)
[2019-05-28] MEDS ORDERED: ESCITALOPRAM OXALATE 10 MG TAB PO SCH (09:00)
[2019-05-28] MEDS ORDERED: DOCUSATE SODIUM/SENNA 50/8.6MG TAB PO SCH (09:00)
[2019-05-28] MEDS ORDERED: ENOXAPARIN INJ 30 MG/0.3 ML SYR SQ SCH (10:00)
[2019-05-28] MEDS: MAGNESIUM SULFATE / D5W 1 GM/100 ML BAG IV SCH ×3 (10:08→12:33)
--- NOTE | 2019-05-28 14:22 | Hospitalist Progress Note ---
Date of Service May 28, 2019 Assessment & Plan (1) Abdominal pain: Present on admission with abdominal discomfort and nausea and self induced vomiting as per pt CT abd/pelvis showed moderate fecal retention with prominent fluid and stool- filled loops of small bowel within the lower abdomen and pelvis suggestive of ileus versus low-grade small bowel obstruction Surgery on board Pt does not want to stay, she is very anxious to go home today Tolerated clear liquid diet and had a small bm today her symptoms improve significantly Case discussed with surgery Dr. Tucker and ok to discharge home Pt was advised to follow a low fiber diet and advance diet slowly as tolerated Keep herself hydrate Pt was advised if symptoms reoccur to seek medical attention Hx metastatic ovarian cancer status post surgery (10/2018) sp chemotherapy, currently in remission as per recent outpatient specialist note Hx Intra-abdominal abscess status post percutaneous drainage (02/2019) in place Completed course of abx CT abd/pelvis showed extensive postoperative changes of the abdomen redemonst rated with unchanged pigtail drainage catheter of the abdominal right lower quadrant. Decreased fluid collection of the abdominal right lower quadrant with persistent edema and mesenteric stranding centered about the abdominal right lower quadrant. Hyperglycemia Hba1c 5.2 continue monitor BS DVT Prophylaxis on Lovenox subcu Code status Full code Disposition Follow up with primary care provider dr. Dias on 05/31 @ 9:45 AM Subjective Pt was seen and examined Lying in bed with no distress Pt said that she feels much better She said that she tolerated her clear liquid diet She said that she had a small BM this morning She is very anxious to go home today Denies any chest pain, palpitation, dizziness and SOB Physical Exam Physical Exam: General- No acute distress Head- atraumatic Eyes- PERRL, EOMI, ENT- oropharynx clear Neck- supple, no JVD Lungs- clear to auscultation Heart- regular rhythm; no murmur Abdomen- normal bowel sounds, soft, mild tenderness with deep palpation, percutaneous drain in place in the right lower quadrant Extremities- no calf tenderness Neuro- alert, oriented x 3; PERRL, EOMI; no facial palsy; no dysarthria Skin- warm & dry Results & Data Vital Signs (Past 12 Hours) Vital Signs Temp Pulse Pulse Resp BP BP Pulse Ox 05/28/19 08:30 36.8 C 81 16 131/95 96 05/28/19 08:05 74 16 116/80 05/28/19 06:06 70 18 111/76 96 05/28/19 03:52 82 18 123/73 94 05/28/19 02:56 36.5 C 82 18 121/58 L 97
[2019-05-28] MEDS ORDERED: HEPARIN 100 UNIT/ML 5ML FLUSH ONE (15:15)
[2019-05-28 16:00] LABS: Appearance Urine Clear (Clear); Bilirubin Urine Negative (Negative); Blood Urine Negative (Negative); Color Urine Yellow; Glucose Urine UA Negative (Negative); Ketones Urine Negative (Negative); Leukocyte Esterase Urine Negative (Negative); Nitrite Urine Negative (Negative); Protein Urine Negative (Negative); Specific Gravity Urine 1.018 (1.000-1.030); Urobilinogen Urine Negative (Negative)
[2019-05-28] MEDS ORDERED: SIMVASTATIN 10 MG TAB PO SCH (21:00)
--- NOTE | 2019-05-29 08:37 | Discharge Summary ---
Date of Service May 28, 2019 Admission HPI Per Admitting Provider History obtained from patient and records. Medical history significant for metastatic ovarian cancer status post surgery (10/2018) sp chemotherapy, intra-abdominal abscess status post percutaneous drainage (02/2019) status post antibiotic Rx, history enterocutaneous fistula status post drain placement, chronic anemia baseline hemoglobin of 9, mood disorder, past tobacco abuse. Recent confinement March 2019 for abdominal pain. Intra-abdominal abscess ruled out. Recent outpatient follow-up with [facility] specialists 3 weeks ago. Patient told that she was in remission given scan results from last month (no definitive disease as per outpatient records.) Minimal fistula drainage at time of encounter. ID recommended completion of IV antibiotics in 1 week. Fistulogram to be done around June 2019 to determine future management for enterocutaneous fistula. Yesterday, patient noted achy mid abdominal pain with nausea and bloating symptoms. Some constipation as per patient. Patient tried to induce vomiting hoping to relieve symptoms. Some chills, no fever, no chest pain, no S OB. Patient brought to the ER by EMS. Medical History as above Surgical History : Breast lesion excision, vascular procedure, ex lap, omentectomy, partial colon resection, peritoneal ectomy, radical hysterectomy with BSO, appendectomy, ileocecectomy with [id number] anastomosis, resection of cul-de-sac pelvic tumor/ debulking surgery, cholecystectomy. 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 Admission Exam Per Admitting Provider GENERAL: Comfortable, slightly anxious, pleasant, no respiratory distress SKIN: Pallor, warm HEENT: Alopecia, pale palpebral conjunctivae, no ptosis, dry buccal mucosa NECK : Supple, no tenderness CHEST : CTA, no tenderness HEART : RRR, no obvious murmurs ABDOMEN: Healed incisional scars, fistula drain noted in the right lower quadrant, some distention, central abdominal tenderness EXTREMITIES : No LE swelling/tenderness, no other conspicuous deformities noted NEUROLOGIC : Coherent, no facial asymmetry, no other gross focality Principal Diagnosis Abdominal pain Hx metastatic ovarian cancer Hx Intra-abdominal abscess Discharge Exam General- No acute distress Head- atraumatic Eyes- PERRL, EOMI, ENT- oropharynx clear Neck- supple, no JVD Lungs- clear to auscultation Heart- regular rhythm; no murmur Abdomen- normal bowel sounds, soft, mild tenderness with deep palpation, percutaneous drain in place in the right lower quadrant Extremities- no calf tenderness Neuro- alert, oriented x 3; PERRL, EOMI; no facial palsy; no dysarthria Skin- warm & dry Discharge Data Allergies Allergy/AdvReac Type Severity Reaction Status Date / Time No Known Allergies Allergy Unverified 05/28/19 03:27 Consultations 05/28/19 05:59 ED Decision to Admit Stat 05/28/19 08:51 Consult General Surgery Routine Ordered Studies 05/28/19 03:03 CT abd pelvis IV con only Urgent ABDOMEN AND PELVIS CT WITH IV CONTRAST CT DOSE: 329.58 mGy.cm HISTORY: Acute generalized abdominal pain with history of reported ovarian cancer. History of prior hysterectomy. ovarian CA, abscess, drain TECHNIQUE: Multiaxial CT images of the abdomen and pelvis were performed following the IV administration of 92 cc of Optiray 320, A dose lowering technique was utilized adhering to the principles of ALARA. COMPARISON STUDY: CT abdomen and pelvis 04/10/2019 and 04/09/2019 FINDINGS: Trace right pleural effusion is unchanged. Moderate hemidiaphragm elevation with subsegmental right basilar atelectasis/scarring. There is no definite pneumatosis or pneumoperitoneum identified. Imaged inferior cardiac chambers are unremarkable. 3.9 cm cyst of the left hepatic lobe is unchanged. Cholecystectomy. Mild common bile duct dilation is likely a postsurgical basis. Spleen is unremarkable. The adrenal glands are within normal limits. 5 mm hypodense focus of the pancreatic tail is nonspecific and may reflect a sidebranch IPMN, unchanged. Mild pancreatic ductal dilation measures up to 4 mm transversely. Kidneys, ureters and urinary bladder are within normal limits. Hysterectomy. Aorta and IVC are unremarkable. Patency of the portal vein. Moderate fecal retention. Multiple postoperative changes of the bowel with multiple anastomotic sutures. Fluid-filled right hemicolon. There are multiple fluid-filled and stool-filled loops of small bowel within the lower abdomen and pelvis which are prominent measuring up to 2.4 cm. There is mild small bowel wall thickening adjacent to anastomotic sutures of the abdominal right lower quadrant. Mild associated mucosal hyperemia. No discrete transition point identified. Pigtail drainage catheter of the right hemipelvis is noted with adjacent free fluid and mesenteric stranding. No loculated abscess identified. The fluid has decreased from comparison study 04/10/2019. Soft tissues are unremarkable. Unchanged scattered sclerotic foci of the iliac bones. Severe disc space narrowing with spondylitic spurring at L5-S1. IMPRESSION: 1. Extensive postoperative changes of the abdomen redemonstrated with unchanged pigtail drainage catheter of the abdominal right lower quadrant. Decreased fluid collection of the abdominal right lower quadrant with persistent edema and mesenteric stranding centered about the abdominal right lower quadrant. 2. Moderate fecal retention with prominent fluid and stool-filled loops of small bowel within the lower abdomen and pelvis suggestive of ileus versus low-grade small bowel obstruction. Additionally, there is small bowel wall thickening of the abdominal right lower quadrant adjacent to the pigtail drainage catheter which is likely reactive or may reflect an area of focal enteritis. Correlate clinically. 3. Unchanged trace right pleural effusion. 4. Additional findings as above. Electronically signed by: Humberto Odom M.D. 05/28/2019 7:45 AM Dictated: 05/28/19712 Transcribed: 05/28/19712 Hospital Course (1) Abdominal pain: Present on admission with abdominal discomfort and nausea and self induced vomiting as per pt CT abd/pelvis showed moderate fecal retention with prominent fluid and stool- filled loops of small bowel within the lower abdomen and pelvis suggestive of ileus versus low-grade small bowel obstruction Surgery on board Pt does not want to stay, she is very anxious to go home today Tolerated clear liquid diet and had a small bm today her symptoms improve significantly Case discussed with surgery Dr. Tucker and ok to discharge home Pt was advised to follow a low fiber diet and advance diet slowly as tolerated Keep herself hydrate Pt was advised if symptoms reoccur to seek medical attention Hx metastatic ovarian cancer status post surgery (10/2018) sp chemotherapy, currently in remission as per recent outpatient specialist note Hx Intra-abdominal abscess status post percutaneous drainage (02/2019) in place Completed course of abx CT abd/pelvis showed extensive postoperative changes of the abdomen redemonstrated with unchanged pigtail drainage catheter of the abdominal right lower quadrant. Decreased fluid collection of the abdominal right lower quadrant with persistent edema and mesenteric stranding centered about the abdominal right lower quadrant. Hyperglycemia Hba1c 5.2 continue monitor BS DVT Prophylaxis on Lovenox subcu Code status Full code Disposition Follow up with primary care provider dr. Dias on 05/31 @ 9:45 AM Total Time Total Time Spent Total Time Spent (In Minutes): 35 minutes Total Time Includes: Examination of the Patient, Discharge Planning, Medication Reconciliation, Communication With Other Providers and Other Discharge Plan Discharge Items Patient Disposition: Home - Home Health Services Reason For Visit: SBO Discharge Diagnosis: Abdominal pain Hx metastatic ovarian cancer Hx Intra-abdominal abscess Activity: Resume your previous activity Activity Comment: as tolerated Non-emergency contact: Primary Care Provider Call non-emergency contact if: you have any medication questions and your temperature is above 101 Follow-up/Referrals: Kody Wall MD [Primary Care Provider] - Diet: Full liquid Addtl Attending Provider Instructions: Follow up with your primary care provider Dr. Dias on 05/31 @ 9:45 AM Follow a low fiber diet, then advanced diet slowly as tolerated Keep herself hydrate If your symptoms (such as abdominal pain, nausea and vomiting) reoccur, please seek medical attention Pending Studies at Discharge: No Stand-Alone Forms: Call Back Authorization, [facility] [employer], Smoking Cessation Medications and DC Order Prescriptions: Continued multivitamin Tablet 1 tab PO DAILY RF: 0 simvastatin 10 mg tablet 10 mg PO HS RF: 0 famotidine 20 mg tablet 20 mg PO BID RF: 0 escitalopram oxalate 10 mg tablet 10 mg PO DAILY RF: 0 Calcium 600 + D(3) 600 mg calcium- 200 unit Capsule 1 cap PO DAILY RF: 0 Discharge Orders: Discharge Order (Routine); Ordered 05/28/19 Ordered By: Britt Oropeza/Other Patient Handouts: DVT, Obstruction Sm Bowel, Diet Low Residue Admission Data Admit Date/Time: 05/28/19 07:02 Attending Provider: Britt Gardiner Admit Provider: Hardik Ireland Primary Care Provider: Kody Wall Other Providers: Yefri Tucker Other Interventions: Discharge Summary Assessment (RN) Last Done: 05/28/19 14:37 DC Date/Time DO NOT enter until pt leaves facility: 05/28/19 16:13
== END 2019-05-28 16:13 | disposition home or self-care (01) | DRG 389 ==
LOC: ED 02:50 → 3W 07:02

== ENCOUNTER 2020-12-29 12:09 | Observation (INO) ==
[2020-12-29] MEDS ORDERED: ONDANSETRON INJ 2 MG/ML 2 ML VIAL IV STA (12:37)
[2020-12-29] MEDS ORDERED: SODIUM CHLORIDE 0.9% 1000ML 1,000 ML IV ONE (12:37)
[2020-12-29] MEDS ORDERED: LORazepam 0.5 MG/1 ML VIAL IV STA (12:37)
[2020-12-29 13:02] LABS: Basophils # (auto) 0.02 K/uL (0-0.2); Basophils % (auto) 0.4 %; Eosinophils # (auto) 0.03 K/uL (0-0.5); Eosinophils % (auto) 0.7 %; Hematocrit (blood only) 31.9 % (37-47); Hemoglobin 11.4 g/dL (12.0-16.0); Immature Granulocytes # (auto) 0.01 K/uL (0.00-0.02); Immature Granulocytes % (auto) 0.2 %; Lymphocytes # (auto) 0.93 K/uL (1.2-3.4); Lymphocytes % (auto) 20.8 %; Mean Corpuscular Hemoglobin 34.1 pg (25-34); Mean Corpuscular Hgb Conc 35.7 g/dL (32-36); Mean Corpuscular Volume 95.5 fL (80-100); Mean Platelet Volume 8.9 fL (7.4-10.4); Monocytes % (auto) 4.5 %; Neutrophils # (auto) 3.28 K/uL (1.4-6.5); Neutrophils % (auto) 73.4 %; Platelet Count 153 K/uL (130-400); RDW Standard Deviation 44.3 fL (36.4-46.3); Red Blood Count 3.34 M/uL (4.2-5.4); White Blood Count 4.47 K/uL (4.8-10.8)
[2020-12-29 13:15] LABS: Partial Thromboplastin Ratio 1.1; Partial Thromboplastin Time 29.9 Seconds (21.0-31.0); Prothrombin Time 10.6 Seconds (9.0-12.0)
[2020-12-29 13:22] LABS: Alanine Aminotransferase 67 U/L (12-78); Albumin Level 3.4 gm/dl (3.4-5.0); Blood Urea Nitrogen 17 mg/dl (7-18); Calcium 8.2 mg/dl (8.5-10.1); Carbon Dioxide 28 mmol/L (21-32); Chloride 106 mmol/L (98-107); Creatinine Clr Calc Pharmacy 72.8 ml/min; Est GFR (Non-African American) 85.4 ml/min; Glucose 96 mg/dl (70-99); Magnesium 1.4 mg/dl (1.8-2.4); Potassium 3.5 mmol/L (3.5-5.1); Sodium 139 mmol/L (136-145)
[2020-12-29 13:27] LABS: Alkaline Phosphatase 99 U/L (45-117); Aspartate Aminotransferase 38 U/L (15-37); Bilirubin,Total 1.3 mg/dl (0.2-1); Globulin 3.5 gm/dl (2.5-4.0); Total Protein 6.9 gm/dl (6.4-8.2); Troponin I < 0.015 ng/ml (0-0.045)
--- NOTE | 2020-12-29 13:32 | XRay Report ---
XR chest 1V portable HISTORY: 60 years-old Female SEPSIS acute sepsis COMPARISON: Chest radiograph 08/18/2019, CTA chest 03/21/2020 TECHNIQUE: Portable AP view of the chest FINDINGS: Cardiomediastinal and hilar silhouettes are within normal limits. Asymmetric right hilar prominence r edemonstrated. Chronic right hemidiaphragmatic elevation with right costophrenic angle blunting. Righ t IJ [id number] catheter is unchanged. No pneumothorax, pleural effusion, airspace consolidation o r overt pulmonary edema. Surgical clips of the upper abdomen. Degenerative changes of the shoulders a nd spine. IMPRESSION: Stable exam without acute process. ACT 112: Negative or not required by law. The above report was generated using voice recognition software. It may contain grammatical, syntax o r spelling errors. Electronically signed by: Herberth Odom M.D. 12/29/2020 1:30 PM
[2020-12-29] MEDS ORDERED: OPTIRAY 320 100ml IV ONE (14:08)
[2020-12-29] MEDS ORDERED: METOCLOPRAMIDE HCL INJ 5 MG/ML 2 ML VIAL IV STA (14:10)
--- NOTE | 2020-12-29 14:54 | CT Scan Report ---
ABDOMEN AND PELVIS CT WITH IV CONTRAST CT DOSE: 329.76 mGy.cm HISTORY: Generalized abdominal pain. Ovarian cancer. TECHNIQUE: Multiaxial CT images of the abdomen and pelvis were performed following the use of intrave nous contrast. A dose lowering technique was utilized adhering to the principles of ALARA. COMPARISON STUDY: Abdomen and pelvis CT 03/21/2020. FINDINGS: There is chronic elevation the right hemidiaphragm. Right lower lobe linear densities favor compressive atelectasis. There are 3 new subcentimeter pulmonary nodules within the lung bases with the largest in the right lower lobe measuring 6 mm on image 13. These are concerning for metastatic d isease. Trace right pleural effusion. No pneumoperitoneum. No pneumatosis. No suspicious lytic or murphy stic osseous lesions. There is persistent thickening of the gastric antrum. No significant inflammato ry change. Stable cyst within the left hepatic lobe. Periportal edema remains unchanged. The gallblad zoraida, pancreas, spleen, adrenal glands are unremarkable. No hydronephrosis. The main portal vein is pa tent. Normal caliber abdominal aorta. Increase in size in a few mildly enlarged retroperitoneal, mese nteric, and right pelvic lymph nodes. Dominant right external iliac lymph node on image 360 measures 2.5 x 1.5 cm. Therefore, this lymphadenopathy is consistent with metastatic disease. Normal bladder. The uterus surgically absent. Multiple cystic masses at the vaginal cuff which have developed in the interval. Dominant lesion measures 2.8 cm. This is consistent with metastatic disease. There are few scattered peritoneal nodules seen within the abdomen and pelvis consistent with perineal carcinomatos is. No dilated loops of small bowel to suggest an obstruction. Fluid-filled and mildly distended colo n. No transition point to suggest an obstruction. The colon is mildly thickened for the degree of dis tention. Postoperative changes consistent with prior subtotal colectomy moderate to large amount of s tool within the rectum which is distended up to 7 cm. IMPRESSION: 1. Interval development of metastatic disease demonstrated by the subcentimeter pulmonary nodules, ab dominal/pelvic lymphadenopathy, and peritoneal carcinomatosis. This includes a few cystic masses at t he vaginal cuff measuring up to 2.8 cm. 2. Fluid-filled and mildly dilated residual: Which demonstrate mild wall thickening. This favors a lo w-grade colitis and may be secondary to an infectious or inflammatory process. 3. Trace right pleural effusion. 4. Moderate to large amount of stool within the rectum. Therefore, this raises the possibility of fec al impaction which may account for the distended and fluid-filled colon. 5. Persistent thickening of the gastric antrum suggesting a chronic gastritis. 6. Additional findings as described above. ACT 112: Negative or not required by law. Electronically signed by: Phillip Vidal M.D. 12/29/2020 2:53 PM
[2020-12-29] MEDS ORDERED: ACETAMINOPHEN 1,000 MG/100 ML VIAL IV STA (15:33)
[2020-12-29 16:13] LABS: Appearance Urine Clear (Clear); Bilirubin Urine Negative (Negative); Blood Urine Negative (Negative); Color Urine Yellow; Glucose Urine UA Negative (Negative); Ketones Urine Negative (Negative); Leukocyte Esterase Urine Negative (Negative); Nitrite Urine Negative (Negative); Protein Urine Negative (Negative); Specific Gravity Urine 1.025 (1.000-1.030); Urobilinogen Urine Negative (Negative); pH Urine 6.5 (4.5-7.5)
[2020-12-29] MEDS ORDERED: DROPERIDOL 5 MG/2 ML VIAL IV STA (17:21)
[2020-12-29] MEDS ORDERED: diphenhydrAMINE 50 MG/ML VIAL IV STA (17:21)
--- NOTE | 2020-12-29 17:32 | Emergency Department Note ---
Impression & Plan Ovarian cancer, Vomiting ED Provider Note NAME: SADE VU AGE: 60 SEX: F : 1960 ARRIVES VIA: Walk-In INFORMANT: Patient, ED PROVIDER(S): Dawit Goldberg MD CHIEF COMPLAINT: Vomiting HPI: This 60-year-old female who presents emergency department after being started on oxycodone last evening for abdominal pain. The patient has a history of ovarian cancer which she follows up with to oncologist for including Dr. Obregon as well as oncology at [facility] Dr. Hooper. The patient denies any abdominal pain however has been vomiting and been unable to keep anything down. She has not tried anything for the vomiting. She reports nothing makes the vomiting any better or worse. ROS: See above HPI for pertinent positives & negatives. A total of 10 systems reviewed and were otherwise negative. PAST MEDICAL HISTORY: See Below PAST SURGICAL HISTORY: See Below FAMILY HISTORY: See Below SOCIAL HISTORY: See Below HOME MEDICATIONS: See Below ALLERGIES: See Below VITALS: See Below PHYSICAL EXAMINATION: VITAL SIGNS - Vital signs and nursing notes were reviewed. GENERAL - 60-year-old female appearing stated age who is in no acute distress. Communicates well with provider and answers questions appropriately, actively vomiting SKIN - Without rashes. HEAD - NC/AT. EYES - PERRL with EOMI bilaterally. Sclera anicteric. Palpebral conjunctiva pink and moist with no injection noted. EARS - No deformities of external structures noted on gross examination bilaterally. No pain elicited with palpation of the tragus bilaterally. External auditory canals without discharge or otorrhea. Tympanic membranes pearly reyes without retraction or bulging. No fluid or purulent material visualized behind the TM. Handle of malleus, umbo, cone of light, pars tensa/flaccid all easily visualized. NOSE - Midline and without cyanosis. No epistaxis or purulent drainage noted. Septum midline without deviation or septal hematoma noted. MOUTH/OROPHARYNX - Without perioral cyanosis. Buccal mucosa pink and moist and without leukoplakia. Tongue midline with equal elevation of palate bilaterally. No tonsillar hypertrophy, erythema, or exudates noted. NECK - Neck with FROM. Supple to palpation. No nuchal rigidity. CHEST - port in place left chest wall LUNGS - Chest wall symmetric without accessory muscle use, intercostals retractions, or central cyanosis. Normal vesicular breath sounds CTA B/L. No wheezes, rales, or rhonchi appreciated. CARDIAC - RRR with S1/S2. No murmur, rubs, or gallops appreciated. ABDOMEN - Abdominal contour without pulsations or visible masses. BS normoactive all four quadrants. No tenderness, palpable masses, hepatosplenomegaly, or ascites noted. EXTREMITIES - No clubbing or peripheral cyanosis. No pretibial edema present. +3/5 radial, posterior tibial, and dorsalis pedis pulses palpated throughout. +5/5 strength noted in UE/LE bilaterally. NEUROLOGIC - Cranial nerves II through XII grossly intact. Sensory intact to light touch throughout. Patellar reflexes +2/4. PSYCH - A&Ox3 and cooperates fully with examiner. Pt is very pleasant and interacts well with examiner. MEDICAL DECISION MAKING: Patient was seen and evaluated as above in room A3. Review was performed of nursing notes and vital signs. I did review pertinent previous visits and patient history. After obtaining a thorough history and physical examination the above work up was performed. This is a 60-year-old female who presents to the emergency department comp laining of vomiting after being switched oxycodone last evening. The patient received multiple rounds of antiemetics including Zofran normal saline bolus as well as Reglan. She does not have an elevation in her white blood cell count and her troponin is also not elevated however the patient does continue to vomit. She was sent for CAT scan of the abdomen pelvis which was concerning for progression of her ovarian cancer. I did fax these results to the patient's oncologist at [facility]. Due to the continued vomiting I did discuss the case with the hospitalist service who did agree to admit the patient. An order was placed for continuous cardiac monitoring. The monitor shows a rate of 88 with Normal SInus rhythm. The patient was evaluated during a period of high volume and high acuity during the global COVID-19 pandemic, and that diagnosis was suspected/considered upon their initial presentation. Their evaluation, treatment and testing was consistent with current guidelines for patients who present with complaints or symptoms that may be related to COVID-19. Patient was seen while provider was wearing PPE. Triage Nursing notes reviewed. Prior medical records reviewed Vital Signs: reviewed and remarkable for no significant abnormalities Differential diagnosis: Appendicitis, ovarian cyst, ovarian torsion, ectopic , TOA, PID, infections, diverticulitis, UTI, obstruction, mesenteric ischemia, aortic pathology, inflammatory bowel disease, renal colic, PUD, pancreatitis, biliary pathology, hernia, volvulus, constipation, as well as other pathologies. ER treatment provided: See below Diagnostics interpreted by me: ECG: normal sinus rhythm normal EKG QTC is 451 ventricular rate of 78, EKG compared to 03/21/2020 no significant changes found. Laboratory studies: As stated above and show below. Imaging studies: See below Consultation(s): Internal Medicine Pt's oncologist Dr Cruz @ [facility] Past Med/Surg History Medical History (Updated 12/29/20 @ 17:50 by Raisa Crooks PA-C) Cancer Encounter for ablation of malignant neoplasm with goal of debulking/cytoreduction pt had a debulking Fistula between adomen and bowel History of ovarian cancer Hypotension Left ovarian cyst Tachycardia Family History (Updated 08/18/19 @ 15:07 by Cody Obregon) Mother Breast cancer Social History Smoking Status: Former smoker Second Hand Exposure: No; Hx Alcohol Use: Yes Alcohol type: wine and hard liquor Hx Substance Use: No Preferred Language: Uzbek Communication Ability: Effective 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 [employer]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: No Beliefs That Will Affect Care: None marital status: Current Living Situation: Alone current occupational status: employed Other Information That Helps Us Care for You: No Feels Safe at Home: Yes Assistive Devices: None Allergies Allergies Allergy/AdvReac Type Severity Reaction Status Date / Time docetaxel Allergy Mild Tachycardia Verified 12/29/20 14:37 Home Meds Home Medications Medication Instructions Recorded Confirmed multivitamin 1 tab PO DAILY 10/11/18 12/29/20 escitalopram oxalate 10 mg PO QAM 04/09/19 12/29/20 famotidine 20 mg PO BID 04/09/19 12/29/20 apixaban [Eliquis] 2.5 mg PO BID 08/28/20 12/29/20 ondansetron HCl [Zofran] 4 mg PO Q6H PRN 08/28/20 12/29/20 calcium carbonate [Calcium 500] 500 mg PO DAILY 12/29/20 12/29/20 ibuprofen 400 mg PO Q6H PRN 12/29/20 12/29/20 niraparib [Zejula] 100 mg PO QPM 12/29/20 12/29/20 oxycodone 5 mg PO Q6H PRN 12/29/20 12/29/20 Results & Data (ED) Vital Signs Vital Signs - 24 hr 12/29/20 12:11 12/29/20 12:50 12/29/20 13:04 Temperature 36.4 C L Temperature Source Oral Pulse Rate 80 75 Pulse Rate [Left Apical] Pulse Rate from SpO2 Sensor 74 Pulse Rhythm [Left Apical] Pulse Strength [Left Apical] Respiratory Rate 18 16 Respiratory Effort / Characteristics Non-Labored Spontaneous Respiratory Depth Normal Respiratory Pattern Blood Pressure 132/82 129/84 Blood Pressure [Right Arm] Blood Pressure Mean 98 99 Blood Pressure Mean [Right Arm] Blood Pressure Position [Right Arm] Pulse Oximetry 98 98 95 Oxygen Delivery Method Room Air Room Air Sepsis Recent Fever Within 48 Hours No Sepsis New/Unexplained Change in Mental Status No Sepsis Action Taken by Nursing No Action Required 12/29/20 13:30 12/29/20 14:00 12/29/20 14:30 Temperature Temperature Source Pulse Rate 73 73 73 Pulse Rate [Left Apical] Pulse Rate from SpO2 Sensor 73 73 74 Pulse Rhythm [Left Apical] Pulse Strength [Left Apical] Respiratory Rate 16 13 15 Respiratory Effort / Characteristics Respiratory Depth Respiratory Pattern Blood Pressure 125/77 137/88 135/83 Blood Pressure [Right Arm] Blood Pressure Mean 93 104 100 Blood Pressure Mean [Right Arm] Blood Pressure Position [Right Arm] Pulse Oximetry 95 90 97 Oxygen Delivery Method Sepsis Recent Fever Within 48 Hours Sepsis New/Unexplained Change in Mental Status Sepsis Action Taken by Nursing 12/29/20 16:30 Temperature Temperature Source Pulse Rate Pulse Rate [Left Apical] 87 Pulse Rate from SpO2 Sensor Pulse Rhythm [Left Apical] Regular Pulse Strength [Left Apical] Normal Respiratory Rate 20 Respiratory Effort / Characteristics Non-Labored Spontaneous Respiratory Depth Normal Respiratory Pattern Regular Blood Pressure Blood Pressure [Right Arm] 133/83 Blood Pressure Mean Blood Pressure Mean [Right Arm] 99 Blood Pressure Position [Right Arm] Lying Pulse Oximetry 96 Oxygen Delivery Method Room Air Sepsis Recent Fever Within 48 Hours Sepsis New/Unexplained Change in Mental Status Sepsis Action Taken by Nursing Laboratory Data Result diagrams: 12/30/20 07:05 12/30/20 07:05 Lab Results 12/29/20 12/29/20 12/29/20 Range/Units 12:45 12:45 12:45 WBC 4.47 L (4.8-10.8) K/uL RBC 3.34 L (4.2-5.4) M/uL Hgb 11.4 L (12.0-16.0) g/dL Hct 31.9 L (37-47) % MCV 95.5 (80-100) fL MCH 34.1 H (25-34) pg MCHC 35.7 (32-36) g/dL RDW Std Deviation 44.3 (36.4-46.3) fL RDW Coeff of Eddie 13.0 (11.5-14.5) % Plt Count 153 (130-400) K/uL MPV 8.9 (7.4-10.4) fL Immature Gran % (Auto) 0.2 % Neut % (Auto) 73.4 % Lymph % (Auto) 20.8 % Bradford % (Auto) 4.5 % Eos % (Auto) 0.7 % Baso % (Auto) 0.4 % Neut # (Auto) 3.28 (1.4-6.5) K/uL Lymph # (Auto) 0.93 L (1.2-3.4) K/uL Bradford # (Auto) 0.20 (0.11-0.59) K/uL Eos # (Auto) 0.03 (0-0.5) K/uL Baso # (Auto) 0.02 (0-0.2) K/uL Immature Gran # (Auto) 0.01 (0.00-0.02) K/uL PT 10.6 (9.0-12.0) Seconds INR 1.0 (0.9-1.1) APTT 29.9 (21.0-31.0) Seconds PTT Ratio 1.1 Sodium 139 (136-145) mmol/L Potassium 3.5 (3.5-5.1) mmol/L Chloride 106 (98-107) mmol/L Carbon Dioxide 28 (21-32) mmol/L Anion Gap 4.0 (3-11) BUN 17 (7-18) mg/dl Creatinine 0.75 (0.6-1.2) mg/dl Est Cr Clr Drug Dosing 72.8 ml/min Est GFR ( Amer) 99.0 ml/min Est GFR (Non-Af Amer) 85.4 ml/min BUN/Creatinine Ratio 23.0 H (10-20) Glucose 96 (70-99) mg/dl Lactate (0.4-2.0) mmol/L Calcium 8.2 L (8.5-10.1) mg/dl Magnesium 1.4 L (1.8-2.4) mg/dl Total Bilirubin 1.3 H (0.2-1) mg/dl AST 38 H (15-37) U/L ALT 67 (12-78) U/L Alkaline Phosphatase 99 (45-117) U/L Troponin I < 0.015 (0-0.045) ng/ml Total Protein 6.9 (6.4-8.2) gm/dl Albumin 3.4 (3.4-5.0) gm/dl Globulin 3.5 (2.5-4.0) gm/dl Albumin/Globulin Ratio 1.0 (0.9-2) Urine Color Urine Appearance (Clear) Urine pH (4.5-7.5) Ur Specific [place] (1.000-1.030) Urine Protein (Negative) Urine Glucose (UA) (Negative) Urine Ketones (Negative) Urine Blood (Negative) Urine Nitrite (Negative) Urine Bilirubin (Negative) Urine Urobilinogen (Negative) Ur Leukocyte Esterase (Negative) 12/29/20 12/29/20 Range/Units 12:45 15:30 WBC (4.8-10.8) K/uL RBC (4.2-5.4) M/uL Hgb (12.0-16.0) g/dL Hct (37-47) % MCV (80-100) fL MCH (25-34) pg MCHC (32-36) g/dL RDW Std Deviation (36.4-46.3) fL RDW Coeff of Eddie (11.5-14.5) % Plt Count (130-400) K/uL MPV (7.4-10.4) fL Immature Gran % (Auto) % Neut % (Auto) % Lymph % (Auto) % Bradford % (Auto) % Eos % (Auto) % Baso % (Auto) % Neut # (Auto) (1.4-6.5) K/uL Lymph # (Auto) (1.2-3.4) K/uL Bradford # (Auto) (0.11-0.59) K/uL Eos # (Auto) (0-0.5) K/uL Baso # (Auto) (0-0.2) K/uL Immature Gran # (Auto) (0.00-0.02) K/uL PT (9.0-12.0) Seconds INR (0.9-1.1) APTT (21.0-31.0) Seconds PTT Ratio Sodium (136-145) mmol/L Potassium (3.5-5.1) mmol/L Chloride (98-107) mmol/L Carbon Dioxide (21-32) mmol/L Anion Gap (3-11) BUN (7-18) mg/dl Creatinine (0.6-1.2) mg/dl Est Cr Clr Drug Dosing ml/min Est GFR ( Amer) ml/min Est GFR (Non-Af Amer) ml/min BUN/Creatinine Ratio (10-20) Glucose (70-99) mg/dl Lactate 1.1 (0.4-2.0) mmol/L Calcium (8.5-10.1) mg/dl Magnesium (1.8-2.4) mg/dl Total Bilirubin (0.2-1) mg/dl AST (15-37) U/L ALT (12-78) U/L Alkaline Phosphatase (45-117) U/L Troponin I (0-0.045) ng/ml Total Protein (6.4-8.2) gm/dl Albumin (3.4-5.0) gm/dl Globulin (2.5-4.0) gm/dl Albumin/Globulin Ratio (0.9-2) Urine Color Yellow Urine Appearance Clear (Clear) Urine pH 6.5 (4.5-7.5) Ur Specific [place] 1.025 (1.000-1.030) Urine Protein Negative (Negative) Urine Glucose (UA) Negative (Negative) Urine Ketones Negative (Negative) Urine Blood Negative (Negative) Urine Nitrite Negative (Negative) Urine Bilirubin Negative (Negative) Urine Urobilinogen Negative (Negative) Ur Leukocyte Esterase Negative (Negative) Administered Medications Acetaminophen (Acetaminophen 325 Mg Tab) 650 mg PO Q4H PRN PRN Reason: Moderate Pain Stop: 01/28/21 21:12 Last Admin: 12/30/20 15:18 Dose: 650 mg Documented by: [id number] Apixaban (Apixaban 2.5 Mg Tab) 2.5 mg PO BID BHARAT Stop: 01/28/21 21:29 Last Admin: 12/30/20 09:04 Dose: 2.5 mg Documented by: [id number] Admin: 12/29/20 21:58 Dose: 2.5 mg Documented by: [id number] Calcium Carbonate (Calcium Carbonate 1250mg Tab) 1,250 mg PO DAILY BHARAT Stop: 01/29/21 08:59 Last Admin: 12/30/20 09:06 Dose: Not Given Documented by: [id number] Famotidine (Famotidine 20 Mg Tab) 20 mg PO BID BHARAT Stop: 01/28/21 21:29 Last Admin: 12/30/20 09:04 Dose: 20 mg Documented by: [id number] Admin: 12/29/20 21:58 Dose: 20 mg Documented by: [id number] Sodium Chloride (Nss 1000ml) 1,000 mls @ 125 mls/hr IV .Q8H BHARAT Stop: 12/30/20 21:29 Last Admin: 12/30/20 14:33 Dose: Not Given Documented by: [id number] Infusion: 12/30/20 13:40 Dose: 0 mls/hr Documented by: [id number] Admin: 12/30/20 05:26 Dose: 125 mls/hr Documented by: [id number] Infusion: 12/30/20 05:26 Dose: 125 mls/hr Documented by: [id number] Admin: 12/29/20 21:39 Dose: 125 mls/hr Documented by: [id number] Ondansetron HCl 8 mg/ Dextrose 54 mls @ 216 mls/hr IV Q4H PRN PRN Reason: Nausea Stop: 01/29/21 07:11 Last Infusion: 12/30/20 08:06 Dose: 0 mls/hr Documented by: [id number] Admin: 12/30/20 07:33 Dose: 216 mls/hr Documented by: [id number] Parenteral Electrolytes (Normosol-R) 1,000 mls @ 125 mls/hr IV .Q8H BHARAT Stop: 01/29/21 11:29 Last Admin: 12/30/20 12:03 Dose: 125 mls/hr Documented by: [id number] Ketorolac Tromethamine (Ketorolac 30 Mg/Ml Vial) 30 mg IV Q6H PRN PRN Reason: Pain Stop: 01/03/21 21:12 Last Admin: 12/30/20 07:20 Dose: 30 mg Documented by: [id number] Multivitamins (Multivitamin Tab) 1 tab PO DAILY BHARAT Stop: 01/29/21 08:59 Last Admin: 12/30/20 09:05 Dose: 1 tab Documented by: [id number] Polyethylene Glycol (Polyethylene (Miralax) 17 Gm Pack) 17 gm PO DAILY BHARAT Stop: 01/28/21 18:15 Last Admin: 12/30/20 11:02 Dose: 17 gm Documented by: [id number] Admin: 12/30/20 11:01 Dose: 17 gm Documented by: [id number] Admin: 12/29/20 19:25 Dose: 17 gm Documented by: [id number] Potassium Citrate (Potassium Citrate 10 Meq Tab) 40 meq PO QAM [facility] Stop: 01/29/21 08:59 Last Admin: 12/30/20 09:12 Dose: 40 meq Documented by: [id number] Sennosides (Senna 8.6 Mg Tab) 17.2 mg PO QAM [facility] Stop: 01/28/21 18:15 Last Admin: 12/30/20 09:05 Dose: 17.2 mg Documented by: [id number] Admin: 12/29/20 20:17 Dose: 17.2 mg Documented by: [id number] Tramadol HCl (Tramadol Hcl 50 Mg Tablet) 50 mg PO Q6H PRN PRN Reason: Pain Stop: 01/28/21 21:12 Last Admin: 12/30/20 11:04 Dose: 50 mg Documented by: [id number] Discontinued Medications Diphenhydramine HCl (Diphenhydramine 50 Mg/Ml Vial) 25 mg IV NOW STA Stop: 12/29/20 17:22 Last Admin: 12/29/20 17:38 Dose: 25 mg Documented by: [id number] Droperidol (Droperidol 5 Mg/2 Ml Vial) 1.25 mg IV ONE STA Stop: 12/29/20 17:22 Last Admin: 12/29/20 17:38 Dose: 1.25 mg Documented by: [id number] Escitalopram Oxalate (Escitalopram Oxalate 10 Mg Tab) 10 mg PO QAM [facility] Stop: 01/29/21 08:59 Last Admin: 12/30/20 09:06 Dose: 10 mg Documented by: [id number] Sodium Chloride (Nss 1000ml) 1,000 mls @ 999 mls/hr IV .Q1H1M ONE Stop: 12/29/20 13:37 Last Infusion: 12/29/20 14:10 Dose: 0 mls/hr Documented by: [id number] Admin: 12/29/20 13:03 Dose: 999 mls/hr Documented by: [id number] Lorazepam (Ativan) 0.5 mg in 1 mls @ 1 mls/min IV NOW STA Stop: 12/29/20 12:38 Last Admin: 12/29/20 13:03 Dose: 1 mls/min Documented by: [id number] Acetaminophen (Ofirmev) 1,000 mg in 100 mls @ 400 mls/hr IV NOW STA Stop: 12/29/20 15:47 Last Infusion: 12/29/20 16:55 Dose: 0 mls/hr Documented by: [id number] Admin: 12/29/20 16:40 Dose: 400 mls/hr Documented by: [id number] Magnesium Sulfate/Dextrose (Magnesium Sulfate / D5w) 1 gm in 100 mls @ 50 mls/ hr IV Q2H STA Stop: 12/29/20 20:15 Last Infusion: 12/29/20 21:25 Dose: 0 mls/hr Documented by: [id number] Admin: 12/29/20 19:25 Dose: 50 mls/hr Documented by: [id number] Magnesium Sulfate/Dextrose (Magnesium Sulfate / D5w) 1 gm in 100 mls @ 50 mls/hr IV ONE ONE Stop: 12/29/20 23:44 Last Infusion: 12/29/20 23:59 Dose: 0 mls/hr Documented by: [id number] Admin: 12/29/20 21:59 Dose: 50 mls/hr Documented by: [id number] Magnesium Sulfate/Dextrose (Magnesium Sulfate / D5w) 1 gm in 100 mls @ 50 mls/hr IV Q2H BHARAT Stop: 12/30/20 12:44 Last Infusion: 12/30/20 13:30 Dose: 0 mls/hr Documented by: [id number] Admin: 12/30/20 11:28 Dose: 50 mls/hr Documented by: [id number] Infusion: 12/30/20 11:13 Dose: 50 mls/hr Documented by: [id number] Admin: 12/30/20 09:13 Dose: 50 mls/hr Documented by: [id number] Potassium Chloride (K Alexandre / Wtr) 10 meq in 100 mls @ 100 mls/hr IV Q1H BHARAT Stop: 12/30/20 13:29 Last Infusion: 12/30/20 14:10 Dose: 0 mls/hr Documented by: [id number] Admin: 12/30/20 13:06 Dose: 100 mls/hr Documented by: [id number] Infusion: 12/30/20 12:28 Dose: 100 mls/hr Documented by: [id number] Admin: 12/30/20 11:28 Dose: 100 mls/hr Documented by: [id number] Infusion: 12/30/20 11:28 Dose: 100 mls/hr Documented by: [id number] Admin: 12/30/20 10:38 Dose: 100 mls/hr Documented by: [id number] Infusion: 12/30/20 10:22 Dose: 100 mls/hr Documented by: [id number] Admin: 12/30/20 09:22 Dose: 100 mls/hr Documented by: [id number] Ioversol (Optiray 320 100ml) 94 ml IV ONCE ONE Stop: 12/29/20 14:09 Last Admin: 12/29/20 14:09 Dose: 94 ml Documented by: [id number] Lorazepam (Lorazepam 0.5 Mg Tab) 0.5 mg PO ONCE PRN PRN Reason: Anxiety Last Admin: 12/30/20 07:54 Dose: 0.5 mg Documented by: [id number] Metoclopramide HCl (Metoclopramide Hcl Inj 5 Mg/Ml 2 Ml Vial) 10 mg IV NOW STA Stop: 12/29/20 14:11 Last Admin: 12/29/20 14:40 Dose: 10 mg Documented by: [id number] *Zejula*Non- Formulary Patient's Own Med 1 ea PO DAILY BHARAT; Protocol Stop: 01/28/21 21:59 Last Admin: 12/30/20 09:05 Dose: Not Given Documented by: [id number] Admin: 12/29/20 21:59 Dose: 100 mg Documented by: [id number] Ondansetron HCl (Ondansetron Inj 2 Mg/Ml 2 Ml Vial) 4 mg IV NOW STA Stop: 12/29/20 12:38 Last Admin: 12/29/20 13:03 Dose: 4 mg Documented by: [id number] Potassium Phosphate (Potassium Phos 3 Mmol/1 Ml Infusion) 40 mmol IV NOW STA Stop: 12/30/20 08:15 Last Admin: 12/30/20 10:48 Dose: Not Given Documented by: [id number] Sodium Biphosphate/Sodium Phosphate (Sod Phosphate/Sod Biphosphate Enema 132 Ml Btl) 132 ml MS DAILY ONE Stop: 12/29/20 18:17 Last Admin: 12/29/20 20:21 Dose: Not Given Documented by: [id number] Sodium Biphosphate/Sodium Phosphate (Sod Phosphate/Sod Biphosphate Enema 132 Ml Btl) 132 ml MS NOW STA Stop: 12/30/20 11:21 Last Admin: 12/30/20 11:43 Dose: 132 ml Documented by: [id number] Imaging Data Radiologist's Impression: Abdomen/Pelvis CT 12/29/20 12:[address] WITH IV CONTRAST CT DOSE: 329.76 mGy.cm HISTORY: Generalized abdominal pain. Ovarian cancer. TECHNIQUE: Multiaxial CT images of the abdomen and pelvis were performed following the use of intravenous contrast. A dose lowering technique was utilized adhering to the principles of ALARA. COMPARISON STUDY: Abdomen and pelvis CT 03/21/2020. FINDINGS: There is chronic elevation the right hemidiaphragm. Right lower lobe linear densities favor compressive atelectasis. There are 3 new subcentimeter pulmonary nodules within the lung bases with the largest in the right lower lobe measuring 6 mm on image 13. These are concerning for metastatic disease. Trace right pleural effusion. No pneumoperitoneum. No pneumatosis. No suspicious lytic or blastic osseous lesions. There is persistent thickening of the gastric antrum. No significant inflammatory change. Stable cyst within the left hepatic lobe. Periportal edema remains unchanged. The gallbladder, pancreas, spleen, adrenal glands are unremarkable. No hydronephrosis. The main portal vein is patent. Normal caliber abdominal aorta. Increase in size in a few mildly enlarged retroperitoneal, mesenteric, and right pelvic lymph nodes. Dominant right external iliac lymph node on image 360 measures 2.5 x 1.5 cm. Therefore, this lymphadenopathy is consistent with metastatic disease. Normal bladder. The uterus surgically absent. Multiple cystic masses at the vaginal cuff which have developed in the interval. Dominant lesion measures 2.8 cm. This is consistent with metastatic disease. There are few scattered peritoneal nodules seen within the abdomen and pelvis consistent with perineal carcinomatosis. No dilated loops of small bowel to suggest an obstruction. Fluid-filled and mildly distended colon. No transition point to suggest an obstruction. The colon is mildly thickened for the degree of distention. Postoperative changes consistent with prior subtotal colectomy moderate to large amount of stool within the rectum which is distended up to 7 cm. IMPRESSION: 1. Interval development of metastatic disease demonstrated by the subcentimeter pulmonary nodules, abdominal/pelvic lymphadenopathy, and peritoneal carcinomatosis. This includes a few cystic masses at the vaginal cuff measuring up to 2.8 cm. 2. Fluid-filled and mildly dilated residual: Which demonstrate mild wall thickening. This favors a low-grade colitis and may be secondary to an infectious or inflammatory process. 3. Trace right pleural effusion. 4. Moderate to large amount of stool within the rectum. Therefore, this raises the possibility of fecal impaction which may account for the distended and fluid-filled colon. 5. Persistent thickening of the gastric antrum suggesting a chronic gastritis. 6. Additional findings as described above. ACT 112: Negative or not required by law. Electronically signed by: Phillip Vidal M.D. 12/29/2020 2:53 PM Chest X-Ray 12/29/20 12:29 XR chest 1V portable HISTORY: 60 years-old Female SEPSIS acute sepsis COMPARISON: Chest radiograph 08/18/2019, CTA chest 03/21/2020 TECHNIQUE: Portable AP view of the chest FINDINGS: Cardiomediastinal and hilar silhouettes are within normal limits. Asymmetric right hilar prominence redemonstrated. Chronic right hemidiaphragmatic elevation with right costophrenic angle blunting. Right IJ [id number] catheter is unchanged. No pneumothorax, pleural effusion, airspace consolidation or overt pulmonary edema. Surgical clips of the upper abdomen. Degenerative changes of the shoulders and spine. IMPRESSION: Stable exam without acute process. ACT 112: Negative or not required by law. The above report was generated using voice recognition software. It may contain grammatical, syntax or spelling errors. Electronically signed by: Herberth Odom M.D. 12/29/2020 1:30 PM Discharge Plan Visit Data Chief Complaint: Nausea Stated Complaint: VOMITING,NAUSEA ED Provider: Dawit Goldberg Discharge Problem: Ovarian cancer, Vomiting Patient Disposition: Admitted As Inpatient Discharge Instructions Interventions: ED Discharge Assessment Last Done: 12/29/20 21:00
--- NOTE | 2020-12-29 17:42 | History & Physical Report ---
Date of Service December 29, 2020 Assessment & Plan (1) Intractable nausea and vomiting: - Admit to med surg on obs - Continues despite multiple antiemetics in the ER - CT abd/pelvis showing significant amount of stool retention. Enema performed in the ER with liquid stool, will repeat. Add mirilax, senokot today. - Continue antiemetics - zofran and phenergan for now (2) Ovarian cancer: - Ovarian/fallopian tube high-grade serous carcinoma, s/p debulking surgery at [facility] in October 2018. - Metastasis to liver, lung and intra-abdominal - s/p percutaneous drainage of an intra-abdominal abscess in Feb 2019 with residual fistula. Pt was previously treated with mycofungin and Ertapenum IV. - Underwent exploratory laparotomy, ileocolic anastomotic resction, fistula takedown on 08/30/2019 at [facility]. -Oncologist at [facility] is Dr. Jose, as well as locally follows with Dr. Obregon. - currently on Niraparib 100 mg daily since 06/12/2020. This dose is reduced due to anemia where she required a transfusion earlier this year in August. - Cancer markers increased with recent testing outpatient - Consider palliative consultation for goals of care during this admission (3) DVT (deep venous thrombosis): (4) Pulmonary embolism: - Jun 2020 - Continue Eliquis 2.5 mg BID (5) Anemia: - Hgb 11.4, Hct 31.9 - Stable (6) Depression: - Continue lexapro 10 mg daily DVT ppx: - teds, Eliquis CODE: Full code Dispo: From home, likely to remain in the hospital x 1-2 days History of Present Illness Primary Care Provider: Kody Wall MD This is a 60 yo F with PMHx of ovarian/fallopian tube high-grade serous carcinoma, s/p debulking surgery at [facility] in October 2018. Metastasis to liver, intra-abdominal, s/o percutaneous drainage of an intra-abdominal abscess in Feb 2019 with residual fistula. Pt was previously treated with mycofungin and Ertapenum IV. She underwent exploratory laparotomy, ileocolic anastomotic resction, fistula takedown on 08/30/2019 at [facility]. Her physician at [facility] is Dr. Jose, as well as locally follows with Dr. Obregon. She is currently on Niraparib 100 mg daily since 06/12/2020. This dose is reduced due to anemia where she required a transfusion earlier this year in August. Other PMHx includes RLE DVT and PE in Jun 2020 currently on Eliquis, anemia, HLD, and depression. Pt presents to the ER today with abdominal pain and nausea. The nausea and vomiting started 2-3 weeks ago. Her nausea has worsened over past 2 days, and this morning started vomiting, and has at least 8 times. She reports bilious vomitus, and has not been able to eat today. She denies any fever chills or sweats. Pt reports abdominal bloating but is passing flatus. An enema was trialed in the ER, which resulted in liquid stool. She has been moving her bowels at home, most recently was liquid this morning. She started taking oxycodone 5 mg last evening, but that was the first dose. She is very fatigued currently. Pt continues to have nausea despite multiple antiemetics including zofran, phenergan, benadryl and droperidol. Magnesium is low, but other electrolytes are WNL. Pt did not taken her chemotherapeutic agent yet today, but has brought it with her. Allergies Allergy/AdvReac Type Severity Reaction Status Date / Time docetaxel Allergy Mild Tachycardia Verified 12/29/20 14:37 Home Medications Medication Instructions Recorded Confirmed Type multivitamin 1 tab PO DAILY 10/11/18 12/29/20 History escitalopram oxalate 10 mg PO QAM 04/09/19 12/29/20 History famotidine 20 mg PO BID 04/09/19 12/29/20 History apixaban [Eliquis] 2.5 mg PO BID 08/28/20 12/29/20 History ondansetron HCl [Zofran] 4 mg PO Q6H PRN 08/28/20 12/29/20 History calcium carbonate [Calcium 500] 500 mg PO DAILY 12/29/20 12/29/20 History ibuprofen 400 mg PO Q6H PRN 12/29/20 12/29/20 History niraparib [Zejula] 100 mg PO QPM 12/29/20 12/29/20 History oxycodone 5 mg PO Q6H PRN 12/29/20 12/29/20 History Past Med/Surg History Medical History (Updated 12/29/20 @ 17:50 by Raisa Crooks PA-C) Cancer Encounter for ablation of malignant neoplasm with goal of debulking/cytoreduction pt had a debulking Fistula between adomen and bowel History of ovarian cancer Hypotension Left ovarian cyst Tachycardia Family History (Updated 08/18/19 @ 15:07 by Cody Obregon) Mother Breast cancer Social History Smoking Status: Former smoker Second Hand Exposure: No; Hx Alcohol Use: Yes Alcohol type: wine and hard liquor Hx Substance Use: No Preferred Language: Greenlandic Communication Ability: Effective Nanny Caregiver Required: No Beliefs That Will Affect Care: None marital status: Current Living Situation: Alone current occupational status: employed Feels Safe at Home: Yes Assistive Devices: Cane and Glasses Review of Systems Review of Systems: Constitutional: No fever, sweats or chills Eyes: No diplopia, no worsening or blurred vision ENT: normal hearing, no trouble swallowing Respiratory: No cough, sputum, dyspnea at rest or on exertion Cardiovascular: No chest pain, tightness or palpitations Abdomen: As per HPI. Musculoskeletal: No joint pain, calf pain, swelling Neurologic: No weakness, numbness/tingling, or balance problems Psychiatric: No anxiety or depression Skin: No rash or itch Physical Exam Physical Exam: General: awake, alert, no apparent distress Head: Normocephalic, atraumatic ENT: PERRL, EOMI, no pharyngeal exudate, mucous membranes moist Chest: Clear to auscultation except slightly diminished at right base, on room air with o2 sats at 97%, no adventitious breath sounds Cardiac: Regular rate and rhythm, no murmur, no JVD, normal peripheral pulses, good capillary refill Abdominal: Hypoactive x 4 quadrants, soft, nondistended, nontender to palpation, no rebound or guarding Extremities: Normal inspection, no peripheral edema or erythema, calfs nontender to palpation Psych: Normal mood and affect Neuro: AAO x 3, strength intact bilaterally and rated 5/5, no motor deficits, speech is clear, no peripheral sensory deficits Results & Data Results & Data ([facility]) Vital Signs (Past 12 Hours) Vital Signs Temp Pulse Pulse Resp BP BP Pulse Ox 12/29/20 16:30 87 20 133/83 96 12/29/20 14:30 73 15 135/83 97 12/29/20 14:00 73 13 137/88 90 12/29/20 13:30 73 16 125/77 95 12/29/20 13:04 75 16 129/84 95 12/29/20 12:50 98 12/29/20 12:11 36.4 C L 80 18 132/82 98 Diagnostic Findings Abdomen/Pelvis CT 12/29/20 12:[address] WITH IV CONTRAST CT DOSE: 329.76 mGy.cm HISTORY: Generalized abdominal pain. Ovarian cancer. TECHNIQUE: Multiaxial CT images of the abdomen and pelvis were performed following the use of intravenous contrast. A dose lowering technique was utilized adhering to the principles of ALARA. COMPARISON STUDY: Abdomen and pelvis CT 03/21/2020. FINDINGS: There is chronic elevation the right hemidiaphragm. Right lower lobe linear densities favor compressive atelectasis. There are 3 new subcentimeter pulmonary nodules within the lung bases with the largest in the right lower lobe measuring 6 mm on image 13. These are concerning for metastatic disease. Trace right pleural effusion. No pneumoperitoneum. No pneumatosis. No suspicious lytic or blastic osseous lesions. There is persistent thickening of the gastric antrum. No significant inflammatory change. Stable cyst within the left hepatic lobe. Periportal edema remains unchanged. The gallbladder, pancreas, spleen, adrenal glands are unremarkable. No hydronephrosis. The main portal vein is patent. Normal caliber abdominal aorta. Increase in size in a few mildly enlarged retroperitoneal, mesenteric, and right pelvic lymph nodes. Dominant right external iliac lymph node on image 360 measures 2.5 x 1.5 cm. Therefore, this lymphadenopathy is consistent with metastatic disease. Normal bladder. The uterus surgically absent. Multiple cystic masses at the vaginal cuff which have developed in the interval. Dominant lesion measures 2.8 cm. This is consistent with metastatic disease. There are few scattered peritoneal nodules seen within the abdomen and pelvis consistent with perineal carcinomatosis. No dilated loops of small bowel to suggest an obstruction. Fluid-filled and mildly distended colon. No transition point to suggest an obstruction. The colon is mildly thickened for the degree of distention. Postoperative changes consistent with prior subtotal colectomy moderate to large amount of stool within the rectum which is distended up to 7 cm. IMPRESSION: 1. Interval development of metastatic disease demonstrated by the subcentimeter pulmonary nodules, abdominal/pelvic lymphadenopathy, and peritoneal carcinomatosis. This includes a few cystic masses at the vaginal cuff measuring up to 2.8 cm. 2. Fluid-filled and mildly dilated residual: Which demonstrate mild wall thickening. This favors a low-grade colitis and may be secondary to an infectious or inflammatory process. 3. Trace right pleural effusion. 4. Moderate to large amount of stool within the rectum. Therefore, this raises the possibility of fecal impaction which may account for the distended and fluid-filled colon. 5. Persistent thickening of the gastric antrum suggesting a chronic gastritis. 6. Additional findings as described above. ACT 112: Negative or not required by law. Electronically signed by: Phillip Vidal M.D. 12/29/2020 2:53 PM Chest X-Ray 12/29/20 12:29 XR chest 1V portable HISTORY: 60 years-old Female SEPSIS acute sepsis COMPARISON: Chest radiograph 08/18/2019, CTA chest 03/21/2020 TECHNIQUE: Portable AP view of the chest FINDINGS: Cardiomediastinal and hilar silhouettes are within normal limits. Asymmetric right hilar prominence redemonstrated. Chronic right hemidiaphragmatic elevation with right costophrenic angle blunting. Right IJ [id number] catheter is unchanged. No pneumothorax, pleural effusion, airspace consolidation or overt pulmonary edema. Surgical clips of the upper abdomen. Degenerative changes of the shoulders and spine. IMPRESSION: Stable exam without acute process. ACT 112: Negative or not required by law. The above report was generated using voice recognition software. It may contain grammatical, syntax or spelling errors. Electronically signed by: Herberth Odom M.D. 12/29/2020 1:30 PM ECG Additional Comments: 29-DEC-2020 13:01:30 [facility]-EDSTAT ROUTINE RETRIEVAL Poor data quality, interpretation may be adversely affected Normal sinus rhythm Normal ECG When compared with ECG of 21-MAR-2020 13:14, No significant change was found 25mm/s 10mm/mV 150Hz 9.0.9 12SL 241 LUISITO: 10 Referred by: REFERRED SELF Unconfirmed Vent. rate 78 BPM DE interval 120 ms QRS duration 78 ms QT/QTc 396/451 ms Code Status & VTE Plan Code Status Full code -discussed with the patient at bedside Supervising Physician Co-Signing Physician Notes History and physical exam performed by me History notable for intermittent nausea and right sided abd pain that has worsened in the past few days and intractable vomiting since this morning. Described. Mild blood loss vomit. Denied any abdominal distention. Reports bowel movement at home. Not sure if she has passed flatus today. Reported she was started on oxycodone yesterday for abdominal pain.. Physical exam notable for chronically ill looking woman in no obvious distress with right chest wall port, no abdominal distention, hypoactive bowel sounds. Lab work notable for magnesium of 1.4, BUN of 1.3, AST of 38 CT abdomen reports interval development of metastatic disease with subcentimeter pulmonary nodules, abdominal pelvic lymphadenopathy and peritoneal carcinomatosis;, no dilated loops of small bowel to suggest obstruction, fluid- filled mildly distended colon without transition point to suggest obstruction, moderate to large amount of stool within the rectum, suspicion for fecal impaction, chronic gastritis. Intractable nausea and vomiting in a patient with ovarian cancer with mets Hypomagnesemia IV fluids Liquid diet advance as tolerated IV Zofran as needed Bowel regimen Hold opioids for now. Use Toradol IV every 6 for 24 hours to help with pain control Replete mag and monitor electrolyte Agree with other plans as detailed by Raisa Crooks PA-C (1) Ovarian cancer Laterality: unspecified laterality Qualified Code(s): C56.9 - Malignant neoplasm of unspecified ovary
[2020-12-29] MEDS ORDERED: MAGNESIUM SULFATE / D5W 1 GM/100 ML BAG IV STA (18:16)
[2020-12-29] MEDS ORDERED: SOD PHOSPHATE/SOD BIPHOSPHATE ENEMA 132 ML BTL PR ONE (18:16)
--- NOTE | 2020-12-29 18:29 | Communication Note ---
Date of Service: December 29, 2020 History and physical exam performed by me History notable for intermittent nausea and right sided abd pain that has worsened in the past few days and intractable vomiting since this morning. Described. Mild blood loss vomit. Denied any abdominal distention. Reports bowel movement at home. Not sure if she has passed flatus today. Reported she was started on oxycodone yesterday for abdominal pain.. Physical exam notable for chronically ill looking woman in no obvious distress with right chest wall port, no abdominal distention, hypoactive bowel sounds. Lab work notable for magnesium of 1.4, BUN of 1.3, AST of 38 CT abdomen reports interval development of metastatic disease with subcentimeter pulmonary nodules, abdominal pelvic lymphadenopathy and peritoneal carcinomatosis;, no dilated loops of small bowel to suggest obstruction, fluid- filled mildly distended colon without transition point to suggest obstruction, moderate to large amount of stool within the rectum, suspicion for fecal impaction, chronic gastritis. Intractable nausea and vomiting in a patient with ovarian cancer with mets Hypomagnesemia IV fluids Liquid diet advance as tolerated IV Zofran as needed Bowel regimen Hold opioids for now. Use Toradol IV every 6 for 24 hours to help with pain control Replete mag and monitor electrolyte Agree with other plans as detailed by Raisa Crooks PA-C
[2020-12-29] MEDS: POLYETHYLENE (MIRALAX) 17 GM PACK PO SCH (19:25)
[2020-12-29] MEDS: SENNA 8.6 MG TAB PO SCH (20:17)
[2020-12-29] MEDS ORDERED: IBUPROFEN 400 MG PO PRN ×2 (21:13)
[2020-12-29] MEDS ORDERED: ONDANSETRON INJ 2 MG/ML 2 ML VIAL IV PRN (21:13)
[2020-12-29] MEDS ORDERED: PROMETHAZINE HCL 6.25 MG in SODIUM CHLORIDE 0.9% 50 ML IV PRN (21:13)
[2020-12-29] MEDS ORDERED: KETOROLAC 30 MG/ML VIAL IV PRN (21:13)
[2020-12-29] MEDS ORDERED: traMADol HCL 50 MG TABLET PO PRN (21:13)
[2020-12-29] MEDS: SODIUM CHLORIDE 0.9% 1000ML 1,000 ML IV SCH (21:39)
[2020-12-29] MEDS ORDERED: MAGNESIUM SULFATE / D5W 1 GM/100 ML BAG IV ONE (21:45)
[2020-12-29] MEDS: FAMOTIDINE 20 MG TAB PO SCH (21:58)
[2020-12-29] MEDS: APIXABAN 2.5 MG TAB PO SCH (21:58)
[2020-12-29] MEDS: ZEJULA PO SCH (21:59)
[2020-12-30] MEDS: SODIUM CHLORIDE 0.9% 1000ML 1,000 ML IV SCH ×2 (05:26→14:33)
[2020-12-30] MEDS ORDERED: HEPARIN 100 UNIT/ML 5ML FLUSH FLUSH PRN (06:33)
--- NOTE | 2020-12-30 06:55 | Electrocardiogram Report ---
Test Reason : Blood Pressure : / mmHG Vent. Rate : 078 BPM Atrial Rate : 078 BPM P-R Int : 120 ms QRS Dur : 078 ms QT Int : 396 ms P-R-T Axes : 060 031 051 degrees QTc Int : 451 ms Poor data quality, interpretation may be adversely affected Normal sinus rhythm Normal ECG When compared with ECG of 21-MAR-2020 13:14, No significant change was found Confirmed by Ag Gongora ([id number]) on 12/30/2020 6:55:25 AM Referred By: REFERRED SELF Confirmed By:Ag Gongora
[2020-12-30] MEDS ORDERED: ondansetron HCL 8 MG in DEXTROSE 5% 50 ML IV PRN (07:12)
[2020-12-30] MEDS ORDERED: LORazepam 0.5 MG TAB PO PRN (07:31)
[2020-12-30 07:35] LABS: Hematocrit (blood only) 31.2 % (37-47); Mean Corpuscular Hemoglobin 34.3 pg (25-34); Mean Corpuscular Hgb Conc 35.3 g/dL (32-36); Mean Corpuscular Volume 97.2 fL (80-100); Mean Platelet Volume 8.8 fL (7.4-10.4); Platelet Count 156 K/uL (130-400); RDW Standard Deviation 45.7 fL (36.4-46.3); Red Blood Count 3.21 M/uL (4.2-5.4)
[2020-12-30 08:04] LABS: Albumin Level 3.1 gm/dl (3.4-5.0); BUN Creatinine Ratio 13.1 (10-20); Bilirubin,Total 1.8 mg/dl (0.2-1); Calcium 8.6 mg/dl (8.5-10.1); Creatinine Clr Calc Pharmacy 82.7 ml/min; Est GFR (African American) 109.7 ml/min; Est GFR (Non-African American) 94.7 ml/min; Globulin 3.3 gm/dl (2.5-4.0); Total Protein 6.4 gm/dl (6.4-8.2)
[2020-12-30] MEDS ORDERED: POTASSIUM PHOS 3 MMOL/1 ML INFUSION IV STA (08:14)
[2020-12-30] MEDS ORDERED: ESCITALOPRAM OXALATE 10 MG TAB PO SCH (09:00)
[2020-12-30] MEDS: FAMOTIDINE 20 MG TAB PO SCH ×2 (09:04→20:20)
[2020-12-30] MEDS: APIXABAN 2.5 MG TAB PO SCH ×2 (09:04→20:20)
[2020-12-30] MEDS: SENNA 8.6 MG TAB PO SCH (09:05)
[2020-12-30] MEDS: MULTIVITAMIN TAB PO SCH (09:05)
[2020-12-30] MEDS: ZEJULA PO SCH (09:05)
[2020-12-30] MEDS: CALCIUM CARBONATE 1250MG TAB PO SCH (09:06)
[2020-12-30] MEDS: POLYETHYLENE (MIRALAX) 17 GM PACK PO SCH ×3 (09:06→11:02)
[2020-12-30] MEDS: POTASSIUM CITRATE 10 MEQ TAB PO SCH (09:12)
[2020-12-30] MEDS: MAGNESIUM SULFATE / D5W 1 GM/100 ML BAG IV SCH ×2 (09:13→11:28)
[2020-12-30] MEDS ORDERED: Nursing to Pharmacy Communication SCH (09:15)
[2020-12-30] MEDS: POTASSIUM CHLORIDE / WTR 10 MEQ/100 ML PLCT IV SCH ×4 (09:22→13:06)
[2020-12-30] MEDS ORDERED: SOD PHOSPHATE/SOD BIPHOSPHATE ENEMA 132 ML BTL PR STA (11:20)
--- NOTE | 2020-12-30 11:37 | Hospitalist Progress Note ---
Date of Service December 30, 2020 Assessment & Plan (1) Intractable nausea and vomiting: Intractable nausea vomiting likely related to mets plus possible fecal impaction CT abd/pelvis showing significant amount of stool retention. Continue antiemetics - zofran and phenergan for now Continue bowel regimen and give enema Patient has hypokalemia and magnesium. Likely due to poor intake and GI losses Continue aggressive repletion and monitoring (2) Ovarian cancer: Ovarian/fallopian tube high-grade serous carcinoma, s/p debulking surgery at [facility] in October 2018. s/p percutaneous drainage of an intra-abdominal abscess in Feb 2019 with r esidual fistula. Pt was previously treated with mycofungin and Ertapenum IV. Underwent exploratory laparotomy, ileocolic anastomotic resction, fistula takedown on 08/30/2019 at [facility]. Oncologist at [facility] is Dr. Jose, as well as locally follows with Dr. Obregon. Currently on Niraparib 100 mg daily since 06/12/2020. This dose is reduced due to anemia where she required a transfusion earlier this year in August. Reported cancer markers increased with recent testing outpatient Discussed patient with Dr Maynor Obregon. He recommends holding zejula (niraparib) for now and he will get in touch with [facility] on Friday (3) DVT (deep venous thrombosis): (4) Pulmonary embolism: Jun 2020 Continue Eliquis 2.5 mg BID (5) Anemia: Hgb 11 Stable (6) Depression: Continue lexapro 10 mg daily Patient anxious about new findings. Got one dose of ativan earlier Provided counselling Will get psych consult DVT ppx: Eliquis CODE: Full code Admission and Anticipated Discharge Date Admission Date: December 29, 2020 Subjective 60 yo F with PMHx of ovarian/fallopian tube high-grade serous carcinoma, s/p debulking surgery at [facility] in October 2018. Metastasis to liver, intra- abdominal, s/o percutaneous drainage of an intra-abdominal abscess in Feb 2019 with residual fistula who presents with intractable nausea and vomiting Patient seen and examined this morning. Still having nausea and bilious vomiting. Had one episode this morning and had another one while being evaluated Has not had any bowel movement since yesterday evening. Patient is anxious about CT findings and was asking earlier blood possibly going home today. Reports some improvement in abdominal pain. No abdominal distention. Had declined MiraLAX this morning stating she does not like the toilet in the room and would prefer to do that at home Review of Systems Review of Systems: All systems reviewed & are unremarkable except as noted in Subjective Physical Exam Constitutional: + ill appearing and + well hydrated; no acute distress Eyes: PERRL, conjunctivae normal, anicteric sclerae ENMT: external ear and nose normal, oropharynx normal Respiratory: normal respiratory effort, lungs clear to auscultation Cardiovascular: Rate/Rhythm: regular rate and regular rhythm Heart Sounds: normal S1 and normal S2 Gastrointestinal (Abdomen): normal bowel sounds, soft, nontender, no hepatosplenomegaly Musculoskeletal: no cyanosis or clubbing, extremities motor strength 5/5 Neurologic: PERRL, EOMI, accommodation nl, no face palsy, no dysarthria Psychiatric: Orientation: alert and oriented x 3 Affect: + anxious affect Results & Data Results & Data ([facility]) Vital Signs (Past 12 Hours) Vital Signs Temp Pulse Pulse Resp BP Pulse Ox Pulse Ox 12/30/20 08:33 36.5 C 82 16 131/84 94 12/30/20 08:00 88 96 12/30/20 03:21 36.6 C 81 18 121/77 95 12/30/20 00:00 74 Laboratory Results Abnormal lab results 12/29/20 12/29/20 12/30/20 Range/Units 12:45 12:45 07:05 WBC 4.47 L 4.20 L (4.8-10.8) K/uL RBC 3.34 L 3.21 L (4.2-5.4) M/uL Hgb 11.4 L 11.0 L (12.0-16.0) g/dL Hct 31.9 L 31.2 L (37-47) % MCH 34.1 H 34.3 H (25-34) pg Lymph # (Auto) 0.93 L (1.2-3.4) K/uL Potassium (3.5-5.1) mmol/L Chloride (98-107) mmol/L BUN/Creatinine Ratio 23.0 H (10-20) Calcium 8.2 L (8.5-10.1) mg/dl Magnesium 1.4 L (1.8-2.4) mg/dl Total Bilirubin 1.3 H (0.2-1) mg/dl AST 38 H (15-37) U/L ALT (12-78) U/L Albumin (3.4-5.0) gm/dl 12/30/20 Range/Units 07:05 WBC (4.8-10.8) K/uL RBC (4.2-5.4) M/uL Hgb (12.0-16.0) g/dL Hct (37-47) % MCH (25-34) pg Lymph # (Auto) (1.2-3.4) K/uL Potassium 3.0 L (3.5-5.1) mmol/L Chloride 110 H (98-107) mmol/L BUN/Creatinine Ratio (10-20) Calcium (8.5-10.1) mg/dl Magnesium (1.8-2.4) mg/dl Total Bilirubin 1.8 H (0.2-1) mg/dl AST 42 H (15-37) U/L ALT 83 H (12-78) U/L Albumin 3.1 L (3.4-5.0) gm/dl (1) Ovarian cancer Laterality: unspecified laterality Qualified Code(s): C56.9 - Malignant neoplasm of unspecified ovary
[2020-12-30] MEDS: NORMOSOL-R 1,000 ML IV SCH ×2 (12:03→21:04)
--- NOTE | 2020-12-30 14:21 | Psychiatric Consultation ---
Date of Consultation December 30, 2020 Impression / Recommendations Impression 60-year-old female with underlying anxiety presenting with increased anxiety after news of metastatic cancer diagnosis. Patient will benefit from changes in her psychiatric medication to address this anxiety as well as augmentation with short acting agents while in the hospital and upon her discharge. Recommendations: Will increase her Lexapro to 20 mg p.o. every morning starting tomorrow morning We will add Ativan 0.5 mg p.o. every 12 hours as needed for anxiety to her regimen Inventory Assets Strengths: Intelligence Needs: Social support Risk Factors Assessment Male: No : Yes Do You Have Access To A Gun?: No Psych History Chief Complaint I have been anxious History of Present Illness As per psychiatric liaison " Rounded on patient per consult for anxiety. Pt. has been experiencing N/V along with recent news of metastatic cancer. She reports that she had been diagnosed in 2019 with ovarian ca, and has recently been having some pain in abdominal area with recent episodes of N/V. She reports she was given the news yesterday of her new diagnosis. She was tearful, along with reports of increased anxiety. She voiced concerns of the unknown, and fearful of the possible future treatments and what they may bring. 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 She denies any mental health diagnosis or history. She is prescribed Lexapro, and reports that it has helped. She denies any SI, states "I had a thought, should I just ?", "Don't worry, I'm not going to kill myself." She reports just fearful of the unknown. She did report that she received ativan and it did seem to help some. She has had friends reaching out during her stay, and is expressed gratitude for her friendships. She did voice plans fo a beach trip with her son, and a wedding at the end of the month. She was encouraged to reach out for support to our service. Dr. Morales was provided information on patient status." Upon evaluation this afternoon patient confirmed the above information is accurate. She denies any current suicidal ideation, no telly or psychosis evident. She does endorse anxiety and is agreeable to plan to increase her SSRI as well as augment with short acting benzodiazepine. Past Psychiatric History Do You Have Access To A Gun?: No Allergies Allergy/AdvReac Type Severity Reaction Status Date / Time docetaxel Allergy Mild Tachycardia Verified 12/29/20 14:37 Home Medications Medication Instructions Recorded Confirmed Type multivitamin 1 tab PO DAILY 10/11/18 12/29/20 History escitalopram oxalate 10 mg PO QAM 04/09/19 12/29/20 History famotidine 20 mg PO BID 04/09/19 12/29/20 History apixaban [Eliquis] 2.5 mg PO BID 08/28/20 12/29/20 History ondansetron HCl [Zofran] 4 mg PO Q6H PRN 08/28/20 12/29/20 History calcium carbonate [Calcium 500] 500 mg PO DAILY 12/29/20 12/29/20 History ibuprofen 400 mg PO Q6H PRN 12/29/20 12/29/20 History niraparib [Zejula] 100 mg PO QPM 12/29/20 12/29/20 History oxycodone 5 mg PO Q6H PRN 12/29/20 12/29/20 History Personal History Beliefs That Will Affect Care: None Patient History Medical History (Updated 12/29/20 @ 17:50 by Raisa Crooks PA-C) Cancer Encounter for ablation of malignant neoplasm with goal of debulking/cytoreduction pt had a debulking Fistula between adomen and bowel History of ovarian cancer Hypotension Left ovarian cyst Tachycardia Family History (Updated 08/18/19 @ 15:07 by Cody Obregon) Mother Breast cancer Social History Smoking Status: Former smoker Second Hand Exposure: No; Hx Alcohol Use: Yes Alcohol type: wine and hard liquor Hx Substance Use: No Preferred Language: Albanian Communication Ability: Effective 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 Beliefs That Will Affect Care: None marital status: Current Living Situation: Alone current occupational status: employed Other Information That Helps Us Care for You: No Feels Safe at Home: Yes Assistive Devices: None Physical Exam Vital Signs (Past 24 Hours): Last Vital Signs Temp 36.6 C 12/30/20 12:17 Pulse 73 12/30/20 12:17 Resp 16 12/30/20 12:17 BP 115/76 12/30/20 12:17 Pulse Ox 97 12/30/20 12:17 Results & Data (PSY) Medications Administered Apixaban (Apixaban 2.5 Mg Tab) 2.5 mg PO BID [facility] Stop: 01/28/21 21:29 Last Admin: 12/30/20 09:04 Dose: 2.5 mg Documented by: [id number] Admin: 12/29/20 21:58 Dose: 2.5 mg Documented by: [id number] Calcium Carbonate (Calcium Carbonate 1250mg Tab) 1,250 mg PO DAILY [facility] Stop: 01/29/21 08:59 Last Admin: 12/30/20 09:06 Dose: Not Given Documented by: [id number] Famotidine (Famotidine 20 Mg Tab) 20 mg PO BID [facility] Stop: 01/28/21 21:29 Last Admin: 12/30/20 09:04 Dose: 20 mg Documented by: [id number] Admin: 12/29/20 21:58 Dose: 20 mg Documented by: [id number] Sodium Chloride (Nss 1000ml) 1,000 mls @ 125 mls/hr IV .Q8H [facility] Stop: 12/30/20 21:29 Last Admin: 12/30/20 05:26 Dose: 125 mls/hr Documented by: [id number] Infusion: 12/30/20 05:26 Dose: 125 mls/hr Documented by: [id number] Admin: 12/29/20 21:39 Dose: 125 mls/hr Documented by: [id number] Ondansetron HCl 8 mg/ Dextrose 54 mls @ 216 mls/hr IV Q4H PRN PRN Reason: Nausea Stop: 01/29/21 07:11 Last Infusion: 12/30/20 08:06 Dose: 0 mls/hr Documented by: [id number] Admin: 12/30/20 07:33 Dose: 216 mls/hr Documented by: [id number] Parenteral Electrolytes (Normosol-R) 1,000 mls @ 125 mls/hr IV .Q8H [facility] Stop: 01/29/21 11:29 Last Admin: 12/30/20 12:03 Dose: 125 mls/hr Documented by: [id number] Ketorolac Tromethamine (Ketorolac 30 Mg/Ml Vial) 30 mg IV Q6H PRN PRN Reason: Pain Stop: 01/03/21 21:12 Last Admin: 12/30/20 07:20 Dose: 30 mg Documented by: [id number] Multivitamins (Multivitamin Tab) 1 tab PO DAILY [facility] Stop: 01/29/21 08:59 Last Admin: 12/30/20 09:05 Dose: 1 tab Documented by: [id number] Polyethylene Glycol (Polyethylene (Miralax) 17 Gm Pack) 17 gm PO DAILY [facility] Stop: 01/28/21 18:15 Last Admin: 12/30/20 11:02 Dose: 17 gm Documented by: [id number] Admin: 12/30/20 11:01 Dose: 17 gm Documented by: [id number] Admin: 12/29/20 19:25 Dose: 17 gm Documented by: [id number] Potassium Citrate (Potassium Citrate 10 Meq Tab) 40 meq PO QAM [facility] Stop: 01/29/21 08:59 Last Admin: 12/30/20 09:12 Dose: 40 meq Documented by: [id number] Sennosides (Senna 8.6 Mg Tab) 17.2 mg PO QAM [facility] Stop: 01/28/21 18:15 Last Admin: 12/30/20 09:05 Dose: 17.2 mg Documented by: [id number] Admin: 12/29/20 20:17 Dose: 17.2 mg Documented by: [id number] Tramadol HCl (Tramadol Hcl 50 Mg Tablet) 50 mg PO Q6H PRN PRN Reason: Pain Stop: 01/28/21 21:12 Last Admin: 12/30/20 11:04 Dose: 50 mg Documented by: [id number] Coding Level of Care Code 68024 U Intl Hosp Care Lvl 2
[2020-12-30] MEDS: ACETAMINOPHEN 325 MG TAB PO PRN (15:18)
[2020-12-30] MEDS: LORazepam 0.5 MG TAB PO PRN (20:20)
[2020-12-30] MEDS ORDERED: ZEJULA PO SCH (21:00)
[2020-12-31] MEDS: ACETAMINOPHEN 325 MG TAB PO PRN (01:48)
[2020-12-31] MEDS: NORMOSOL-R 1,000 ML IV SCH (04:29)
[2020-12-31 06:44] LABS: Hematocrit (blood only) 30.6 % (37-47); Hemoglobin 10.8 g/dL (12.0-16.0); Mean Corpuscular Hemoglobin 34.1 pg (25-34); Mean Corpuscular Hgb Conc 35.3 g/dL (32-36); Mean Corpuscular Volume 96.5 fL (80-100); Mean Platelet Volume 8.5 fL (7.4-10.4); Platelet Count 152 K/uL (130-400); RDW Coefficient of Variation 12.8 % (11.5-14.5); RDW Standard Deviation 44.8 fL (36.4-46.3); Red Blood Count 3.17 M/uL (4.2-5.4); White Blood Count 3.77 K/uL (4.8-10.8)
[2020-12-31 07:03] LABS: BUN Creatinine Ratio 9.6 (10-20); Calcium 8.5 mg/dl (8.5-10.1); Creatinine Clr Calc Pharmacy 88.1 ml/min; Est GFR (Non-African American) 96.6 ml/min; Magnesium 1.9 mg/dl (1.8-2.4); Potassium 3.1 mmol/L (3.5-5.1)
[2020-12-31 07:09] LABS: Albumin Globulin Ratio 0.9 (0.9-2); Bilirubin,Total 2.6 mg/dl (0.2-1); Globulin 3.2 gm/dl (2.5-4.0); Phosphorus 2.6 mg/dl (2.5-4.9); Total Protein 6.2 gm/dl (6.4-8.2)
[2020-12-31] MEDS ORDERED: POTASSIUM CHLORIDE CRTAB 20 MEQ TABCR PO STA (08:17)
[2020-12-31] MEDS: FAMOTIDINE 20 MG TAB PO SCH (08:47)
[2020-12-31] MEDS: POTASSIUM CHLORIDE / WTR 10 MEQ/100 ML PLCT IV SCH ×4 (08:47→10:52)
[2020-12-31] MEDS: APIXABAN 2.5 MG TAB PO SCH (08:48)
[2020-12-31] MEDS: POTASSIUM CITRATE 10 MEQ TAB PO SCH (08:48)
[2020-12-31] MEDS: SENNA 8.6 MG TAB PO SCH (08:48)
[2020-12-31] MEDS: MULTIVITAMIN TAB PO SCH (08:48)
[2020-12-31] MEDS: CALCIUM CARBONATE 1250MG TAB PO SCH (08:48)
[2020-12-31] MEDS ORDERED: ESCITALOPRAM OXALATE 20 MG TAB PO SCH (09:00)
[2020-12-31] MEDS ORDERED: Nursing to Pharmacy Communication SCH (09:45)
[2020-12-31] MEDS: LORazepam 0.5 MG TAB PO PRN (10:26)
--- NOTE | 2020-12-31 15:59 | Discharge Summary ---
Date of Service December 31, 2020 Admission HPI Per Admitting Provider This is a 60 yo F with PMHx of ovarian/fallopian tube high-grade serous carcinoma, s/p debulking surgery at [facility] in October 2018. Metastasis to liver, intra-abdominal, s/o percutaneous drainage of an intra-abdominal abscess in Feb 2019 with residual fistula. Pt was previously treated with mycofungin and Ertapenum IV. She underwent exploratory laparotomy, ileocolic anastomotic resction, fistula takedown on 08/30/2019 at [facility]. Her physician at [facility] is Dr. Jose, as well as locally follows with Dr. Obregon. She is currently on Niraparib 100 mg daily since 06/12/2020. This dose is reduced due to anemia where she required a transfusion earlier this year in August. Other PMHx includes RLE DVT and PE in Jun 2020 currently on Eliquis, anemia, HLD, and depression. Pt presents to the ER today with abdominal pain and nausea. The nausea and vomiting started 2-3 weeks ago. Her nausea has worsened over past 2 days, and this morning started vomiting, and has at least 8 times. She reports bilious vomitus, and has not been able to eat today. She denies any fever chills or sweats. Pt reports abdominal bloating but is passing flatus. An enema was trialed in the ER, which resulted in liquid stool. She has been moving her bowels at home, most recently was liquid this morning. She started taking oxycodone 5 mg last evening, but that was the first dose. She is very fatigued currently. Pt continues to have nausea despite multiple antiemetics including zofran, phenergan, benadryl and droperidol. Magnesium is low, but other electrolytes are WNL. Pt did not taken her chemotherapeutic agent yet today, but has brought it with her. Admission Exam Per Admitting Provider General: awake, alert, no apparent distress Head: Normocephalic, atraumatic ENT: PERRL, EOMI, no pharyngeal exudate, mucous membranes moist Chest: Clear to auscultation except slightly diminished at right base, on room air with o2 sats at 97%, no adventitious breath sounds Cardiac: Regular rate and rhythm, no murmur, no JVD, normal peripheral pulses, good capillary refill Abdominal: Hypoactive x 4 quadrants, soft, nondistended, nontender to palpation, no rebound or guarding Extremities: Normal inspection, no peripheral edema or erythema, calfs nontender to palpation Psych: Normal mood and affect Neuro: AAO x 3, strength intact bilaterally and rated 5/5, no motor deficits, speech is clear, no peripheral sensory deficits Principal Diagnosis Intractable nausea vomiting Ovarian cancer, metastatic Anxiety and depression Discharge Exam Constitutional + ill appearing and + well hydrated; no acute distress Eyes PERRL, conjunctivae normal, anicteric sclerae ENMT external ear and nose normal, oropharynx normal Respiratory normal respiratory effort, lungs clear to auscultation Cardiovascular Rate/Rhythm: regular rate and regular rhythm Heart Sounds: normal S1 and normal S2 Gastrointestinal (Abdomen) normal bowel sounds, soft, nontender, no hepatosplenomegaly Musculoskeletal no cyanosis or clubbing, extremities motor strength 5/5 Neurologic PERRL, EOMI, accommodation nl, no face palsy, no dysarthria Psychiatric A+Ox3, euthymic affect Discharge Data Allergies Allergy/AdvReac Type Severity Reaction Status Date / Time docetaxel Allergy Mild Tachycardia Verified 12/29/20 14:37 Consultations 12/29/20 20:08 ED Decision to Admit Stat 12/30/20 11:37 Consult Psychiatry Routine 12/31/20 11:14 Burn CD for patient Routine Ordered Studies 12/29/20 12:29 CT abd pelvis IV con only Stat There is chronic elevation the right hemidiaphragm. Right lower lobe linear densities favor compressive atelectasis. There are 3 new subcentimeter pulmonary nodules within the lung bases with the largest in the right lower lobe measuring 6 mm on image 13. These are concerning for metastatic disease. Trace right pleural effusion. No pneumoperitoneum. No pneumatosis. No suspicious lytic or blastic osseous lesions. There is persistent thickening of the gastric antrum. No significant inflammatory change. Stable cyst within the left hepatic lobe. Periportal edema remains unchanged. The gallbladder, pancreas, spleen, adrenal glands are unremarkable. No hydronephrosis. The main portal vein is patent. Normal caliber abdominal aorta. Increase in size in a few mildly enlarged retroperitoneal, mesenteric, and right pelvic lymph nodes. Dominant right external iliac lymph node on image 360 measures 2.5 x 1.5 cm. Therefore, this lymphadenopathy is consistent with metastatic disease. Normal bladder. The uterus surgically absent. Multiple cystic masses at the vaginal cuff which have developed in the interval. Dominant lesion measures 2.8 cm. This is consistent with metastatic disease. There are few scattered peritoneal nodules seen within the abdomen and pelvis consistent with perineal carcinomatosis. No dilated loops of small bowel to suggest an obstruction. Fluid-filled and mildly distended colon. No transition point to suggest an obstruction. The colon is mildly thickened for the degree of distention. Postoperative changes consistent with prior subtotal colectomy moderate to large amount of stool within the rectum which is distended up to 7 cm. IMPRESSION: 1. Interval development of metastatic disease demonstrated by the subcentimeter pulmonary nodules, abdominal/pelvic lymphadenopathy, and peritoneal carcinomatosis. This includes a few cystic masses at the vaginal cuff measuring up to 2.8 cm. 2. Fluid-filled and mildly dilated residual: Which demonstrate mild wall thickening. This favors a low-grade colitis and may be secondary to an infectious or inflammatory process. 3. Trace right pleural effusion. 4. Moderate to large amount of stool within the rectum. Therefore, this raises the possibility of fecal impaction which may account for the distended and fluid-filled colon. 5. Persistent thickening of the gastric antrum suggesting a chronic gastritis. 6. Additional findings as described above. Hospital Course (1) Intractable nausea and vomiting: Intractable nausea vomiting likely related to mets plus possible fecal impaction CT abd/pelvis showing significant amount of stool retention. This was managed with antiemetics and bowel regime Got enema and laxatives Has been having bowel movements since yesterday No more vomiting for the past 24hrs Tolerating meals well today Had hypokalemia and magnesium. Likely due to poor intake and GI losses These were aggressively repleted Discharged on po KCl 20mEq daily Primary Doctor can check BMP and Mag levels in a week to monitor (2) Ovarian cancer: Ovarian/fallopian tube high-grade serous carcinoma, s/p debulking surgery at [facility] in October 2018. s/p percutaneous drainage of an intra-abdominal abscess in Feb 2019 with residual fistula. Pt was previously treated with mycofungin and Ertapenum IV. Underwent exploratory laparotomy, ileocolic anastomotic resction, fistula takedown on 08/30/2019 at [facility]. Oncologist at [facility] is Dr. Jose, as well as locally follows with Dr. Obregon. Currently on Niraparib 100 mg daily since 06/12/2020. This dose is reduced due to anemia where she required a transfusion earlier this year in August. Reported cancer markers increased with recent testing outpatient CT abdomen findings as detailed above suggestive of metastatic disease. Discussed patient with Dr Maynor Obregon. He recommends holding zejula (niraparib) for now and he will get in touch with [place] on Friday Patient advised to stop taking Zejula for now and follow up with Dr Obregon (3) DVT (deep venous thrombosis): (4) Pulmonary embolism: Jun 2020 Continue Eliquis 2.5 mg BID (5) Anemia: Hgb 11 Stable (6) Depression: Patient anxious about new findings. Was evaluated by psych and escitalopram increased to 20mg daily Patient does not want ativan for now. Provided counselling Total Time Total Time Spent Total Time Spent (In Minutes): 50 Total Time Includes: Examination of the Patient, Discharge Planning and Medication Reconciliation Discharge Plan Discharge Items Patient Disposition: Home - Self-Care Reason For Visit: INTRACTABLE NAUSEA/VOMITING Discharge Diagnosis: Intractable nausea and vomiting Ovarian cancer Anxiety and depression Activity: Resume your previous activity Non-emergency contact: Primary Care Provider and Oncologist Call non-emergency contact if: you have any medication questions and your symptoms worsen Follow-up/Referrals: Kody Wall MD [Primary Care Provider] - Diet: Regular Addtl Attending Provider Instructions: Mrs. Barron. You came to the hospital complaining of intractable nausea and vomiting. You were evaluated and found to have a lot of stool in your bowels with possible fecal impaction. CAT scan also reviewed interval development of metastatic disease shown by nodules in the lungs and peritoneum. It is very important that you follow-up with the oncologist. Please discuss with Dr. Obregon tomorrow about when to resume your Zejula which is recommended to not take for now. Your escitalopram was increased to 20 mg daily per psychiatrist recommendations You are being discharged on oral potassium due to low potassium levels while in the hospital. Use tylenol as needed for pain Please ensure follow-up with your primary care doctor who may repeat blood work to monitor your electrolytes in a week and manage as appropriate. It was a pleasure taking care of you Pending Studies at Discharge: No Stand-Alone Forms: [facility], Smoking Cessation Medications and DC Order Prescriptions: New acetaminophen 325 mg Tablet 650 mg PO Q4H PRN (Reason: Mild pain) Qty: 20 RF: 0 potassium chloride 20 mEq tablet extended release 20 meq PO DAILY Qty: 30 RF: 0 sennosides [Senokot] 8.6 mg Tablet 17.2 mg PO QAM Qty: 60 RF: 0 polyethylene glycol 3350 [Miralax] 17 gram Powder In Packet 17 g PO DAILY PRN (Reason: constipation) Qty: 14 RF: 0 Continued multivitamin Tablet 1 tab PO DAILY RF: 0 famotidine 20 mg tablet 20 mg PO BID RF: 0 calcium carbonate [Calcium 500] 500 mg calcium (1,250 mg) Tablet 500 mg PO DAILY RF: 0 ibuprofen 400 mg Tablet 400 mg PO Q6H PRN (Reason: Pain) RF: 0 ondansetron HCl [Zofran] 4 mg Tablet 4 mg PO Q6H PRN (Reason: Nausea) RF: 0 Eliquis 2.5 mg Tablet 2.5 mg PO BID RF: 0 Changed escitalopram oxalate 10 mg tablet 20 mg PO QAM 30 Days Qty: 60 RF: 0 Discontinued Zejula 100 mg Capsule 100 mg PO QPM RF: 0 oxycodone 5 mg tablet 5 mg PO Q6H PRN (Reason: Pain) RF: 0 Discharge Orders: Discharge Order (Routine); Ordered 12/31/20 Ordered By: Ninfa Lindsey Admission Data Admit Date/Time: 12/29/20 17:55 Attending Provider: Ninfa Lindsey I. Admit Provider: Raisa Crooks Primary Care Provider: Kody Wall Other Providers: Martha Andrade ; Cheri Higginbotham ; Dr Vijay ; Leidy Lewis ; Kody Morales Other Interventions: Discharge Summary Assessment (RN) Last Done: 12/31/20 15:49
== END 2020-12-31 17:30 | disposition home or self-care (01) ==
LOC: ED 12:09 → 2S 12:09

== ENCOUNTER 2021-06-19 16:01 | Observation (INO) ==
[2021-06-19 19:24] LABS: Basophils # (auto) 0.02 K/uL (0-0.2); Basophils % (auto) 0.7 %; Eosinophils # (auto) 0.05 K/uL (0-0.5); Eosinophils % (auto) 1.8 %; Hematocrit (blood only) 22.2 % (37-47); Hemoglobin 7.5 g/dL (12.0-16.0); Immature Granulocytes # (auto) 0.01 K/uL (0.00-0.02); Immature Granulocytes % (auto) 0.4 %; Lymphocytes # (auto) 1.18 K/uL (1.2-3.4); Lymphocytes % (auto) 41.5 %; Mean Corpuscular Hemoglobin 33.3 pg (25-34); Mean Corpuscular Hgb Conc 33.8 g/dL (32-36); Mean Corpuscular Volume 98.7 fL (80-100); Mean Platelet Volume 9.1 fL (7.4-10.4); Monocytes # (auto) 0.29 K/uL (0.11-0.59); Monocytes % (auto) 10.2 %; Neutrophils # (auto) 1.29 K/uL (1.4-6.5); Neutrophils % (auto) 45.4 %; Nucleated RBC # (auto) 0.03 K/uL (0-0); Nucleated RBC % (auto) 0.9 %; Platelet Count 224 K/uL (130-400); RDW Coefficient of Variation 18.2 % (11.5-14.5); RDW Standard Deviation 58.8 fL (36.4-46.3); Red Blood Count 2.25 M/uL (4.2-5.4); White Blood Count 2.84 K/uL (4.8-10.8)
[2021-06-19 19:45] LABS: Hypochromasia Present; Polychromasia 1+; Tear Drop Cells 1+
[2021-06-19 19:50] LABS: Alanine Aminotransferase 38 (12-78); Aspartate Aminotransferase 18 U/L (15-37); BUN Creatinine Ratio 18.6 (10-20); Blood Urea Nitrogen 19 mg/dl (7-18); Calcium 8.6 mg/dl (8.5-10.1); Carbon Dioxide 25 mmol/L (21-32); Chloride 109 mmol/L (98-107); Est GFR (African American) 66.7 ml/min; Est GFR (Non-African American) 57.5 ml/min; Glucose 106 mg/dl (70-99); Potassium 3.7 mmol/L (3.5-5.1); Sodium 138 mmol/L (136-145)
[2021-06-19 19:52] LABS: Albumin Globulin Ratio 0.8 (0.9-2); Alkaline Phosphatase 85 U/L (45-117); Bilirubin,Total 1.9 mg/dl (0.2-1); Globulin 3.8 gm/dl (2.5-4.0); Total Protein 6.8 gm/dl (6.4-8.2)
[2021-06-19 20:22] LABS: Influenza A virus by PCR Negative (Neg); Influenza B virus by PCR Negative (Neg); RSV by PCR Negative (Neg); SARS CoV2 RNA(COVID-19) InHosp NEGATIVE (Negative)
[2021-06-19] MEDS ORDERED: CEFEPIME 2,000 MG/20 ML VIAL IV STA (20:32)
[2021-06-19] MEDS ORDERED: SODIUM CHLORIDE 0.9% 250 ML IV PRN (21:22)
[2021-06-19 22:29] LABS: Appearance Urine Clear (Clear); Bacteria Urine Automated Negative (Negative); Bilirubin Urine Negative (Negative); Blood Urine Negative (Negative); Color Urine Dark Yellow; Epithelial Cell Urine Auto >30 /lpf (0-5); Glucose Urine UA Negative (Negative); Ketones Urine Trace (Negative); Leukocyte Esterase Urine Negative (Negative); Nitrite Urine Negative (Negative); Protein Urine Trace (Negative); RBC Urine Automated 0-4 /hpf (0-4); Specific Gravity Urine 1.032 (1.000-1.030); Urobilinogen Urine Negative (Negative); pH Urine 5.5 (4.5-7.5)
[2021-06-19 22:47] LABS: Mucus Urine Present (None Prsent)
[2021-06-19] MEDS ORDERED: diphenhydrAMINE 50 MG/ML VIAL IV STA (22:55)
--- NOTE | 2021-06-19 23:29 | Emergency Department Note ---
Impression & Plan Transfusion of blood during current hospitalisation, Anemia, Fever, Primary cancer of ovary with widespread metastatic disease, Chemotherapy induced neutropenia ED Provider Note CHIEF COMPLAINT: Fever to 103, on chemotherapy for ovarian cancer, fatigue HISTORY OF PRESENT ILLNESS: This 60 yo female patient presents to the emergency department with complaints of fever to 103 degrees. Patient states she has advanced ovarian cancer and is in a clinical trial through [facility]. She spoke with her oncologist today who referred her into the ED for antibiotics. Patient states that she has some chronic lower abdominal pain secondary to "tumors at the top of the vagina" but denies any clear dysuria. She also has some mild discomfort at the right upper quadrant of the abdomen which she relates to a "fistula surgery." Patient states she had CT imaging of the chest abdomen and pelvis yesterday which she reviewed with her oncologist. She was not informed of any acute findings. Patient does have some bloody noses but denies any blood in her stools. Patient denies any significant chest pain, shortness of breath, cough, vomiting but does admit to some diarrhea. REVIEW OF SYSTEMS: A review of systems was performed with positives and pertinent negatives listed in the history of present illness. 10 systems were reviewed and are otherwise negative. ALLERGIES: see below MEDICATIONS: see below PMH: see below SOCIAL HISTORY: see below DDx: Viral syndrome, COVID, pneumonia, influenza, meningitis, urinary tract infection, sepsis, bacteremia, as well as other pathologies. PHYSICAL EXAM: Vital signs reviewed. General: Chronically ill appearing 60 yo female, in no significant distress. HEENT: No scleral icterus, PERRLA, neck supple. Atraumatic. Mask in place. P joshua conjunctiva Cardiovascular: Regular rate and rhythm, no extra sounds. Pulmonary: Clear to auscultation bilaterally, normal work of breathing. Abdomen: Soft, mild right upper abdominal tenderness, nondistended, positive bowel sounds. No CVA tenderness bilaterally Musculoskeletal: Atraumatic, no peripheral edema. Neurologic: Patient awake alert and oriented x 3, speech is clear Skin: Warm, dry, no rash EMERGENCY DEPARTMENT COURSE/MDM: This patient was evaluated and appeared to be in no significant distress. The patient did wait for a prolonged time due to overwhelming volumes and the Covid pandemic. IV access was obtained and laboratory work was drawn. The patient was placed on a school lunch monitor and noted to be in a normal sinus rhythm. Patient is noted to be anemic with a hemoglobin of 7.5. Patient was neutrophil count is just over one at 1.29. Blood cultures and a lactate were performed. Lactate is normal at 1.6. Patient was medicated with 2 g of IV cefepime. She was typed and crossed for PRBCs. Patient was consented for blood transfusion given 25 mg of IV Benadryl per her request. Negative for Covid, influenza and RSV. Case was discussed with the hospitalist service for further evaluation and management. Patient expressed understanding of the plan and agreed. MONITORING: An order for cardiac monitoring was placed and the patient is noted to be in a normal sinus rhythm at 87 beats per minute. RADIOLOGY: Chest x-ray to my interpretation reveals indwelling a port with elevated right hemidiaphragm otherwise no focal lung consolidation failure. DISPOSITION: admit Past Med/Surg History Medical History Cancer Encounter for ablation of malignant neoplasm with goal of debulking/cytoreduction pt had a debulking Fistula between adomen and bowel History of ovarian cancer Hypotension Left ovarian cyst Tachycardia Family History Mother Breast cancer Social History Smoking Status: Never smoker Second Hand Exposure: No; Hx Alcohol Use: Yes Alcohol type: wine and hard liquor Hx Substance Use: No Preferred Language: Slovak Communication Ability: Effective [employer] Art [employer] Required: No Beliefs That Will Affect Care: None marital status: Current Living Situation: Alone current occupational status: employed Feels Safe at Home: Yes Assistive Devices: None Allergies Allergies Allergy/AdvReac Type Severity Reaction Status Date / Time docetaxel Allergy Mild Tachycardia Verified 06/19/21 21:43 Home Meds Home Medications Medication Instructions Recorded Confirmed acetaminophen 325 mg tablet 325 mg PO QID PRN 06/19/21 06/19/21 (Tylenol) apixaban 5 mg tablet (Eliquis) 5 mg PO BID 06/19/21 06/19/21 calcium 150 mg tablet 150 mg PO DAILY 06/19/21 06/19/21 cyanocobalamin (vitamin B-12) 1,000 mcg PO DAILY 06/19/21 06/19/21 1,000 mcg tablet (Vitamin B-12) diphenoxylate-atropine 2.5 1 tab PO QID PRN 06/19/21 06/19/21 mg-0.025 mg tablet escitalopram oxalate 10 mg tablet 10 mg PO DAILY 06/19/21 06/19/21 famotidine 20 mg tablet 20 mg PO BID 06/19/21 06/19/21 ibuprofen 600 mg tablet 600 mg PO Q6 PRN 06/19/21 06/19/21 lidocaine-prilocaine 2.5 %-2.5 % 1 applic TOPICAL UD 06/19/21 06/19/21 topical cream loperamide 2 mg tablet See Rx Instructions .ROUTE 06/19/21 06/19/21 .COMPLEX PRN magnesium chloride 71.5 mg 71.5 mg PO DAILY 06/19/21 06/19/21 (magnesium chloride) tablet,delayed release (Slow-Mag) multivitamin 1 tab PO DAILY 06/19/21 06/19/21 ondansetron HCl 8 mg tablet 8 mg PO Q8 PRN 06/19/21 06/19/21 potassium chloride 20 mEq 20 meq PO DAILY 06/19/21 06/19/21 tablet,extended release prochlorperazine maleate 10 mg 10 mg PO Q6 PRN 06/19/21 06/19/21 tablet Results & Data (ED) Vital Signs Vital Signs - 24 hr 06/19/21 17:47 06/19/21 23:04 Temperature 36.9 C 37.3 C Temperature Source Temporal Artery Scan Oral Pulse Rate 89 83 Respiratory Rate 18 15 Blood Pressure 116/67 117/65 Blood Pressure Mean 83 82 Blood Pressure Position Lying Pulse Oximetry 99 99 Oxygen Delivery Method Room Air Sepsis Recent Fever Within 48 Hours No Sepsis New/Unexplained Change in Mental Status N/A Sepsis Action Taken by Nursing No Action Required Home Medications Current Medication List: was personally reviewed by me Laboratory Data Attestation: I reviewed the patient's lab results. Result diagrams: 06/19/21 19:11 06/19/21 19:11 Lab Results 06/19/21 06/19/21 06/19/21 Range/Units 19:11 19:11 19:11 WBC 2.84 L (4.8-10.8) K/uL RBC 2.25 L (4.2-5.4) M/uL Hgb 7.5 L (12.0-16.0) g/dL Hct 22.2 L (37-47) % MCV 98.7 (80-100) fL MCH 33.3 (25-34) pg MCHC 33.8 (32-36) g/dL RDW Std Deviation 58.8 H (36.4-46.3) fL RDW Coeff of Eddie 18.2 H (11.5-14.5) % Plt Count 224 (130-400) K/uL MPV 9.1 (7.4-10.4) fL Immature Gran % (Auto) 0.4 % Neut % (Auto) 45.4 % Lymph % (Auto) 41.5 % Wilcox % (Auto) 10.2 % Eos % (Auto) 1.8 % Baso % (Auto) 0.7 % Neut # (Auto) 1.29 L (1.4-6.5) K/uL Lymph # (Auto) 1.18 L (1.2-3.4) K/uL Wilcox # (Auto) 0.29 (0.11-0.59) K/uL Eos # (Auto) 0.05 (0-0.5) K/uL Baso # (Auto) 0.02 (0-0.2) K/uL Immature Gran # (Auto) 0.01 (0.00-0.02) K/uL Absolute Nucleated RBC 0.03 H (0-0) K/uL Nucleated RBC % (auto) 0.9 % Polychromasia 1+ Hypochromasia Present Tear Drop Cells 1+ Sodium 138 (136-145) mmol/L Potassium 3.7 (3.5-5.1) mmol/L Chloride 109 H (98-107) mmol/L Carbon Dioxide 25 (21-32) mmol/L Anion Gap 4.0 (3-11) BUN 19 H (7-18) mg/dl Creatinine 1.04 (0.6-1.2) mg/dl Est Cr Clr Drug Dosing Not Reportable Est GFR ( Amer) 66.7 ml/min Est GFR (Non-Af Amer) 57.5 ml/min BUN/Creatinine Ratio 18.6 (10-20) Glucose 106 H (70-99) mg/dl Lactate (0.4-2.0) mmol/L Calcium 8.6 (8.5-10.1) mg/dl Total Bilirubin 1.9 H (0.2-1) mg/dl AST 18 (15-37) U/L ALT 38 (12-78) Alkaline Phosphatase 85 (45-117) U/L Total Protein 6.8 (6.4-8.2) gm/dl Albumin 3.0 L (3.4-5.0) gm/dl Globulin 3.8 (2.5-4.0) gm/dl Albumin/Globulin Ratio 0.8 L (0.9-2) Urine Color Urine Appearance (Clear) Urine pH (4.5-7.5) Ur Specific [place] (1.000-1.030) Urine Protein (Negative) Urine Glucose (UA) (Negative) Urine Ketones (Negative) Urine Blood (Negative) Urine Nitrite (Negative) Urine Bilirubin (Negative) Urine Urobilinogen (Negative) Ur Leukocyte Esterase (Negative) Urine WBC (Auto) (0-5) /hpf Urine RBC (Auto) (0-4) /hpf U Hyaline Cast (Auto) (0-5) /lpf U Epithel Cells (Auto) (0-5) /lpf Urine Bacteria (Auto) (Negative) Ur Renal Epithelial Cell (0-5) /lpf Urine Mucus (None Prsent) SARS-CoV-2 (PCR) NEGATIVE (Negative) Influenza Type A (PCR) Negative (Neg) Influenza Type B (PCR) Negative (Neg) RSV (RT-PCR) Negative (Neg) Blood Type Antibody Screen Crossmatch 06/19/21 06/19/21 06/19/21 Range/Units 21:36 21:36 22:05 WBC (4.8-10.8) K/uL RBC (4.2-5.4) M/uL Hgb (12.0-16.0) g/dL Hct (37-47) % MCV (80-100) fL MCH (25-34) pg MCHC (32-36) g/dL RDW Std Deviation (36.4-46.3) fL RDW Coeff of Eddie (11.5-14.5) % Plt Count (130-400) K/uL MPV (7.4-10.4) fL Immature Gran % (Auto) % Neut % (Auto) % Lymph % (Auto) % Wilcox % (Auto) % Eos % (Auto) % Baso % (Auto) % Neut # (Auto) (1.4-6.5) K/uL Lymph # (Auto) (1.2-3.4) K/uL Wilcox # (Auto) (0.11-0.59) K/uL Eos # (Auto) (0-0.5) K/uL Baso # (Auto) (0-0.2) K/uL Immature Gran # (Auto) (0.00-0.02) K/uL Absolute Nucleated RBC (0-0) K/uL Nucleated RBC % (auto) % Polychromasia Hypochromasia Tear Drop Cells Sodium (136-145) mmol/L Potassium (3.5-5.1) mmol/L Chloride (98-107) mmol/L Carbon Dioxide (21-32) mmol/L Anion Gap (3-11) BUN (7-18) mg/dl Creatinine (0.6-1.2) mg/dl Est Cr Clr Drug Dosing Est GFR ( Amer) ml/min Est GFR (Non-Af Amer) ml/min BUN/Creatinine Ratio (10-20) Glucose (70-99) mg/dl Lactate 1.6 (0.4-2.0) mmol/L Calcium (8.5-10.1) mg/dl Total Bilirubin (0.2-1) mg/dl AST (15-37) U/L ALT (12-78) Alkaline Phosphatase (45-117) U/L Total Protein (6.4-8.2) gm/dl Albumin (3.4-5.0) gm/dl Globulin (2.5-4.0) gm/dl Albumin/Globulin Ratio (0.9-2) Urine Color Dark Yellow Urine Appearance Clear (Clear) Urine pH 5.5 (4.5-7.5) Ur Specific [place] 1.032 H (1.000-1.030) Urine Protein Trace H (Negative) Urine Glucose (UA) Negative (Negative) Urine Ketones Trace H (Negative) Urine Blood Negative (Negative) Urine Nitrite Negative (Negative) Urine Bilirubin Negative (Negative) Urine Urobilinogen Negative (Negative) Ur Leukocyte Esterase Negative (Negative) Urine WBC (Auto) 1-5 (0-5) /hpf Urine RBC (Auto) 0-4 (0-4) /hpf U Hyaline Cast (Auto) 1-5 (0-5) /lpf U Epithel Cells (Auto) >30 H (0-5) /lpf Urine Bacteria (Auto) Negative (Negative) Ur Renal Epithelial Cell 5-10 H (0-5) /lpf Urine Mucus Present A (None Prsent) SARS-CoV-2 (PCR) (Negative) Influenza Type A (PCR) (Neg) Influenza Type B (PCR) (Neg) RSV (RT-PCR) (Neg) Blood Type A Positive Antibody Screen NEGATIVE Crossmatch See Detail Administered Medications Discontinued Medications Diphenhydramine HCl (Diphenhydramine 50 Mg/Ml Vial) 25 mg IV NOW STA Stop: 06/19/21 22:56 Last Admin: 06/19/21 23:00 Dose: 25 mg Documented by: [id number] Cefepime HCl (Maxipime) 2,000 mg in 20 mls @ 5 mls/min IV NOW STA; Protocol Stop: 06/19/21 20:35 Last Admin: 06/19/21 22:15 Dose: 5 mls/min Documented by: [id number] Blood Pressure Blood Pressure Findings: Low blood pressure Blood Pressure Disposition: did not require urgent referral Discharge Plan Visit Data Chief Complaint: Fever Stated Complaint: HAS OV CANCER, FEVER +103, DR DEVORAH'D ED Provider: Brittany Black Discharge Problem: Transfusion of blood during current hospitalisation, Anemia, Fever, Primary cancer of ovary with widespread metastatic disease, Chemotherapy induced neutropenia Forms Stand Alone Forms: [facility] Prescriptions Prescriptions: No Action diphenoxylate-atropine 2.5-0.025 mg tablet 1 tab PO QID PRN (Reason: Diarrhea) RF: 0 Eliquis 5 mg tablet 5 mg PO BID RF: 0 multivitamin Tablet 1 tab PO DAILY RF: 0 acetaminophen [Tylenol] 325 mg Tablet 325 mg PO QID PRN (Reason: Pain) RF: 0 ondansetron HCl 8 mg tablet 8 mg PO Q8 PRN (Reason: Nausea) RF: 0 loperamide 2 mg Tablet See Rx Instructions .ROUTE .COMPLEX PRN (Reason: Diarrhea) RF: 0 cyanocobalamin (vitamin B-12) [Vitamin B-12] 1,000 mcg Tablet 1,000 mcg PO DAILY RF: 0 prochlorperazine maleate 10 mg tablet 10 mg PO Q6 PRN (Reason: Nausea) RF: 0 lidocaine-prilocaine 2.5-2.5 % cream 1 applic topical UD RF: 0 famotidine 20 mg tablet 20 mg PO BID RF: 0 calcium 150 mg Tablet 150 mg PO DAILY RF: 0 escitalopram oxalate 10 mg tablet 10 mg PO DAILY RF: 0 Slow-Mag 71.5 mg Tablet,Delayed Release (Dr/Ec) 71.5 mg PO DAILY RF: 0 potassium chloride 20 mEq tablet extended release 20 meq PO DAILY RF: 0 ibuprofen 600 mg tablet 600 mg PO Q6 PRN (Reason: Fever Or Pain) RF: 0 Referrals Referrals: Kody Wall MD [Primary Care Provider] - Discharge Problem: Anemia Qualifiers: Anemia type: unspecified type Qualified Code(s): D64.9 - Anemia, unspecified Fever Qualifiers: Fever type: due to other condition Qualified Code(s): R50.81 - Fever presenting with conditions classified elsewhere Primary cancer of ovary with widespread metastatic disease Qualifiers: Laterality: unspecified laterality Qualified Code(s): C56.9 - Malignant neoplasm of unspecified ovary
--- NOTE | 2021-06-20 03:02 | History and Physical Report ---
DATE OF ADMISSION: 06/19/2021. CHIEF COMPLAINT: Fevers. 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 in 10/2018 metastasis to liver, intra-abdomen, status post percutaneous drainage of intraabdominal abscess in 02/2019 with rectal fistula. She also underwent an exploratory laparotomy, ileocolic anastomotic resection, fistula was taken down on 08/30/[address] [facility]. She also follows locally with Dr. Obregon. She is on experimental chemo and also Paclitaxel as per [facility]. Experimental drug Fostamatinib at currently 50% dose reduction, 1 tablet twice a day ( dose reduction because of low blood count issues) , she is also on Eliquis for right lower extremity DVT and PE in 06/2020, history of significant anemia, hyperlipidemia and depression. The patient comes here because she is having fever of 103 at home and [facility] doctor told her to come to the ER for further workup. Currently afebrile and outpatient labs, she was told she has some neutropenia. Today in the ER, labs are okay. She was empirically started on cefepime and her oncologist told her to hold her experimental drug while she is in the hospital. Hemoglobin is 7.5 and received 1 unit of PRBC in the ER. Currently, resting comfortably, hemodynamically stable. She has abdominal pain, but she also has chronic pains and she recently had CAT scans done at [place] and she says they are looking better as per the patient. Patient has chronic diarrhea and denies any blood in stool or black stools. No burning micturition. Appetite is good. No difficulty swallowing. No chest pain. She has some shortness of breath on exertion and fatigue, attributes to chemo. Has some mild headache, no blurred visions, no earache, no runny nose, no sore throat. Currently, resting comfortably and hemodynamically stable. ALLERGIES: DOCETAXEL. PAST MEDICAL HISTORY: As mentioned above. PAST SURGICAL HISTORY: Left breast lesion excision, colonoscopy, total abdominal hysterectomy with bilateral salpingo-oophorectomy and debulking surgery, diaphragm stripping, omentectomy, transverse colectomy and ileocecal resection in 10/2018. MEDICATIONS: Currently the patient is on Tylenol 300 mg p.o. q.i.d. p.r.n., Eliquis 5 mg p.o. b.i.d., calcium 150 mg p.o. daily, vitamin B12 1000 mcg p.o. daily, Lomotil 1 tablet p.o. q.i.d. p.r.n., Lexapro 10 mg p.o. daily, famotidine 20 mg p.o. b.i.d., ibuprofen 600 mg p.o. q. 6 hours p.r.n., lidocaine topical as directed, Slow-Mag 71.5 mg p.o. daily, multivitamin 1 tablet p.o. daily, Zofran 8 mg p.o. q. 8 hours p.r.n., potassium chloride 20 mEq p.o. daily, prochlorperazine 10 mg p.o. q. 6 hours p.r.n. FAMILY HISTORY: Significant for aunt has breast cancer. Cousin has breast cancer. Mother has breast cancer. Father has lung cancer. Maternal grandfather had colon cancer. Paternal grandmother had colon cancer. Brother has hypotension. Father has hypotension. Maternal grandmother had ALS. SOCIAL HISTORY: . Former smoker, smoked 1 pack a day for 9 years. Alcohol once in a while. No drug use. REVIEW OF SYSTEMS: As per HPI. Rest of the review of systems is negative. PHYSICAL EXAMINATION: GENERAL: The patient is of moderate build, not in acute distress. VITAL SIGNS: Temperature 37.1, pulse 66, respiratory rate 15, blood pressure 110/64, oxygen 97% on room air. HEENT: PERRLA. Extraocular muscles intact. Oral mucosa moist, no other oral lesions seen. NECK: No JVD or neck masses. CARDIOVASCULAR: S1 and S2 heard. Regular rate and rhythm. No murmur, no gallop. RESPIRATORY SYSTEM: Normal AP diameter. No accessory muscle use. No wheezing, no crackles. ABDOMEN: Soft, bowel sounds present, mild discomfort in lower abdomen, no guarding, no rigidity. CENTRAL NERVOUS SYSTEM: Cranial nerves II-XII grossly intact, nonfocal. EXTREMITIES: No edema, no erythema. LABORATORY DATA: WBC 2.8, hemoglobin 7.5, hematocrit 22.5, platelets 224. Sodium 138, potassium 3.7, chloride 109, bicarbonate 25, BUN 19, creatinine 1.04, serum glucose 106, lactate 1.6, calcium 8.6, total bilirubin 1.9, AST 18, ALT 38, alkaline phosphatase 85. Urinalysis: Trace ketones. SARS-CoV-2 PCR negative. Influenza A and B PCR negative. RSV PCR negative. IMAGING DATA: Chest x-ray, no acute findings. 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 1. Fevers, the patient has neutropenia out patient labs.. ER started cefepime. We will follow the cultures. Gentle fluids. Monitor in the med tele. Follow repeat labs. Currently stable. 2. 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. Currently on chemo as per [facility], she sees locally follows Dr. Obregon. Follow up with Hem/Onc on discharge. 3. Chronic diarrhea. Continue home medications. 4. History of deep venous thrombosis and pulmonary embolism on Eliquis. 5. Leukopenia and anemia, possibly from chemo, hemoglobin 7.5, received 1 unit of PRBC in the ER. Follow the repeat labs in the a.m. 6. Deep venous thrombosis prophylaxis: On Eliquis. DISPOSITION: Admit to med tele. PT/OT prior to discharge. Social service to help with discharge planning. Job ID: [id number] MTDD
[2021-06-20] MEDS ORDERED: DIPHENOXYLATE/ATROPINE 2.5/0.025MG TAB PO PRN (03:19)
[2021-06-20] MEDS ORDERED: SODIUM CHLORIDE 0.9% 1000ML 1,000 ML IV SCH (03:19)
[2021-06-20] MEDS ORDERED: ONDANSETRON INJ 2 MG/ML 2 ML VIAL IV PRN (03:19)
[2021-06-20] MEDS ORDERED: ACETAMINOPHEN 325 MG TAB PO PRN (03:19)
[2021-06-20] MEDS ORDERED: LIDOCAINE/PRILOCAINE 2.5% EA CRM EXT PRN (03:19)
[2021-06-20] MEDS ORDERED: NITROGLYCERIN SL 0.4 MG/TAB TAB SL PRN (03:19)
[2021-06-20] MEDS ORDERED: ONDANSETRON 4 MG OD TAB PO PRN (03:46)
[2021-06-20 07:50] LABS: Basophils # (auto) 0.01 K/uL (0-0.2); Basophils % (auto) 0.5 %; Eosinophils # (auto) 0.03 K/uL (0-0.5); Eosinophils % (auto) 1.4 %; Hematocrit (blood only) 24.1 % (37-47); Hemoglobin 8.5 g/dL (12.0-16.0); Immature Granulocytes # (auto) 0.02 K/uL (0.00-0.02); Immature Granulocytes % (auto) 0.9 %; Lymphocytes % (auto) 36.7 %; Mean Corpuscular Hemoglobin 32.7 pg (25-34); Mean Corpuscular Hgb Conc 35.3 g/dL (32-36); Mean Corpuscular Volume 92.7 fL (80-100); Mean Platelet Volume 9.5 fL (7.4-10.4); Monocytes % (auto) 9.2 %; Neutrophils # (auto) 1.12 K/uL (1.4-6.5); Neutrophils % (auto) 51.3 %; Platelet Count 169 K/uL (130-400); RDW Coefficient of Variation 17.8 % (11.5-14.5); RDW Standard Deviation 55.2 fL (36.4-46.3); White Blood Count 2.18 K/uL (4.8-10.8)
--- NOTE | 2021-06-20 07:53 | XRay Report ---
XR chest 2V PA/lateral HISTORY: Fever, ovarian CA COMPARISON: Chest 12/29/2020. FINDINGS: No pneumothorax. There is chronic elevation the right hemidiaphragm, unchanged. No focal isaiah ng consolidations to suggest pneumonia. No evidence for pulmonary edema. No pneumothorax. Mild emphys kassidy. The heart is normal in size. There are surgical clips within the upper abdomen again noted. Righ t jugular Port-A-Cath terminates at the proximal SVC. This remains unchanged. Stable blunting of the right lateral costophrenic sulcus. IMPRESSION: No significant change compared to the prior study. No acute process. ACT 112: Negative or not required by law. Electronically signed by: Phillip Vidal M.D. 06/20/2021 7:52 AM
[2021-06-20 08:18] LABS: BUN Creatinine Ratio 17.2 (10-20); Calcium 8.2 mg/dl (8.5-10.1); Creatinine Clr Calc Pharmacy 71.8 ml/min; Est GFR (African American) 97.4 ml/min; Est GFR (Non-African American) 84.1 ml/min; Magnesium 1.2 mg/dl (1.8-2.4); Potassium 3.4 mmol/L (3.5-5.1)
[2021-06-20] MEDS ORDERED: POTASSIUM CHLORIDE CRTAB 20 MEQ TABCR PO SCH (09:00)
[2021-06-20] MEDS ORDERED: MAGNESIUM CHLORIDE 64MG DELAYED REL TAB PO SCH (09:00)
[2021-06-20] MEDS ORDERED: CALCIUM 150 MG PO SCH (09:00)
[2021-06-20] MEDS ORDERED: FAMOTIDINE 20 MG TAB PO SCH (09:00)
[2021-06-20] MEDS ORDERED: CYANOCOBALAMIN 500 MCG TABLET (VITAMIN B-12) PO SCH (09:00)
[2021-06-20] MEDS ORDERED: APIXABAN 5 MG TABLET PO SCH (09:00)
[2021-06-20] MEDS ORDERED: ESCITALOPRAM OXALATE 10 MG TAB PO SCH (09:00)
[2021-06-20] MEDS ORDERED: MULTIVITAMIN TAB PO SCH (09:00)
[2021-06-20] MEDS ORDERED: POTASSIUM CHLORIDE CRTAB 20 MEQ TABCR PO ONE (11:14)
[2021-06-20] MEDS: MAGNESIUM SULFATE / D5W 1 GM/100 ML BAG IV SCH ×3 (11:54→15:47)
--- NOTE | 2021-06-20 16:34 | Discharge Summary ---
Date of Service June 20, 2021 Discharge Data Allergies Allergy/AdvReac Type Severity Reaction Status Date / Time docetaxel Allergy Mild Tachycardia Verified 06/19/21 21:43 Consultations 06/20/21 03:12 ED Decision to Admit Stat Discharge Plan Discharge Items Patient Disposition: Home - Self-Care Reason For Visit: FEVER Discharge Diagnosis: symptomatic anemia chemotherapy-induced neutropenia Condition on Discharge: Good Activity: Resume your previous activity Non-emergency contact: Primary Care Provider and Silk Folder Call non-emergency contact if: you have any medication questions, your symptoms worsen, your pain is not controlled, your pain is worsening, your pain is unusual for you, your pain is concerning for you and you have a fever Follow-up/Referrals: Kody Wall MD [Primary Care Provider] - (Date & Time 06/25/2021 10:00 AM Provider Kody Wall MD Department [facility] ) Diet: Regular Addtl Attending Provider Instructions: Please continue all medications as instructed on discharge list below. Your magnesium level was low and you received intravenous magnesium supplementation during your admission. It is recommended to recheck this within 1 week. Your red blood cell counts were low and you were transfused one unit of blood for symptomatic anemia. With your ongoing chemotherapy treatments, it is recommended to repeat a complete blood count (CBC) within 1 week, or prior to starting your next chemotherapy session. It is recommended that you follow-up with your primary care physician at the d ate/time above to ensure you blood cultures returner negative and that you are still doing well after discharge home. Your blood cultures were pending at the time of your discharge. If these become positive, we will call you. However, if you start feeling ill or spike a fever, please seek immediate medical attention. It was a pleasure taking care of you! Please call if you have any questions or problems. You can reach a [facility] hospitalist on duty at [facility] 24 hours a day by calling [phone]. Take care of yourself. Lesley Preciado DO [facility] Pending Studies at Discharge: Yes Studies:: blood cultures-pending Stand-Alone Forms: [facility] Medications and DC Order Prescriptions: Continued diphenoxylate-atropine 2.5-0.025 mg tablet 1 tab PO QID PRN (Reason: Diarrhea) RF: 0 Eliquis 5 mg tablet 5 mg PO BID RF: 0 multivitamin Tablet 1 tab PO DAILY RF: 0 acetaminophen [Tylenol] 325 mg Tablet 325 mg PO QID PRN (Reason: Pain) RF: 0 ondansetron HCl 8 mg tablet 8 mg PO Q8 PRN (Reason: Nausea) RF: 0 loperamide 2 mg Tablet See Rx Instructions .ROUTE .COMPLEX PRN (Reason: Diarrhea) RF: 0 cyanocobalamin (vitamin B-12) [Vitamin B-12] 1,000 mcg Tablet 1,000 mcg PO DAILY RF: 0 prochlorperazine maleate 10 mg tablet 10 mg PO Q6 PRN (Reason: Nausea) RF: 0 lidocaine-prilocaine 2.5-2.5 % cream 1 applic topical UD RF: 0 famotidine 20 mg tablet 20 mg PO BID RF: 0 calcium 150 mg Tablet 150 mg PO DAILY RF: 0 escitalopram oxalate 10 mg tablet 10 mg PO DAILY RF: 0 Slow-Mag 71.5 mg Tablet,Delayed Release (Dr/Ec) 71.5 mg PO DAILY RF: 0 potassium chloride 20 mEq tablet extended release 20 meq PO DAILY RF: 0 ibuprofen 600 mg tablet 600 mg PO Q6 PRN (Reason: Fever Or Pain) RF: 0 Discharge Orders: Discharge Order (Routine); Ordered 06/20/21 Ordered By: Lesley Preciado Admission Data Admit Date/Time: 06/20/21 01:53 Attending Provider: Lesley Preciado Admit Provider: Sridhar Holley Primary Care Provider: Kody Wall Other Providers: Sridhar Holley
== END 2021-06-20 18:25 | disposition home or self-care (01) ==
LOC: ED 16:01 → SUATTDRO 06-20 01:53 → EDINP 06-20 01:53 → INTOOBSV 06-20 01:53 → EDINP 06-20 04:00